=== PATIENT | male | born 1950 | race Caucasian/White ===

== ENCOUNTER 2018-11-18 12:45 | Emergency (ER) | payer OTHER, MEDICARE, SELFPAY ==
[2018-11-18] VITALS (25 sets, daily range): BP systolic 105–153; BP diastolic 49–83; PULSE 50–63; RESP 12–22; TEMP 36.9; O2SAT 79–98
--- NOTE | 2018-11-18 13:24 | DI.CT_ITS ---
SYMPTOMS/DIAGNOSIS: ABDOMINAL PAIN, GASTROINTESTINAL BLEEDING CT EXAMINATION OF THE ABDOMEN AND PELVIS: The study was carried out with intravenous administration of 100 cc of Omnipaque 350 and oral ingestion of dilute Omnipaque. Regions of atelectasis are noted in the lung bases. The liver, and gallbladder, and pancreas and spleen are intact. Bilateral renal cysts are demonstrated. The adrenals are normal. There is no evidence of bowel obstruction. There is nothing to suggest an acute appendix. There are scattered sigmoid diverticula and a region of bowel wall thickening and adjacent fat stranding and increased density is noted, the findings consistent with diverticulitis. There is no evidence of perforation or an abscess formation. The bladder is intact. The reproductive organs as visualized appear intact. Small bilateral fat-containing inguinal hernias are demonstrated. There are atherosclerotic changes involving the aorta without evidence of an aneurysm. Mild DJD involving the lower dorsal and lumbar spine is noted. SUMMARY: Findings consistent with diverticulitis. There is no evidence of an abscess or perforation.
[2018-11-18] MEDS: Normal Saline 500 ML IV ×2 (13:31→16:08)
[2018-11-18 13:40] LABS: Abs Immature Grans 0.01 k/cumm (0.0-0.09); Absolute Basophil Count 0.01 k/cumm (0.0-0.2); Absolute Eosinophil Count 0.11 k/cumm (0.0-0.7); Absolute Lymphocyte Count 1.87 k/cumm (1.2-3.4); Absolute Monocyte Count 1.04 k/cumm (0.11-0.7); Absolute Neutrophil Count 5.98 k/cumm (1.2-6.7); Basophils % 0.1; Eosinophils % 1.2; HCT 45.6 % (40.0-50.0); HGB 15.4 g/dL (13.5-17.5); Immature Grans % 0.1; Lymphocytes % 20.7; Mean Corp. HGB Concentration 33.8 g/dL (32.0-36.0); Mean Corpuscular Hemoglobin 32.8 pg (27.0-33.0); Mean Corpuscular Volume 97.2 fL (80-95); Mean Platelet Volume 10.9 fL (8.0-11.0); Monocytes % 11.5; Neutrophils % 66.4; Platelet Count 176 x1000/uL (130-400); RBC 4.69 m/cumm (4.50-6.00); RBC Distribution Width 13.8 % (11.8-14.1); White Blood Cell Count 9.02 k/cumm (4.4-10.8)
[2018-11-18 13:46] LABS: ALT 29 U/L (12-78); AST 26 U/L (15-37); Albumin 3.8 g/dL (3.4-5.0); Alkaline Phosphatase 79 U/L (46-116); Anion Gap 8.9 mmol/L (3-11); BUN 14 mg/dL (7-18); Bilirubin, Total 0.6 mg/dL (0.2-1.0); CO2 26.1 mmol/L (21.0-32.0); CREATININE 1.13 mg/dL (0.70-1.30); Chloride 102 mmol/L (98-107); Glucose 116 mg/dL (70-100); Potassium 4.2 mmol/L (3.5-5.1); Sodium 137 mmol/L (136-145); Total Protein 7.8 g/dL (6.4-8.2)
[2018-11-18] MEDS: Omnipaque 350 MG/ML 100 ML BTL IJ (14:51)
--- NOTE | 2018-11-18 14:57 | W.ED.GENAD ---
Discharge Plan Disposition Patient Disposition: HOME Condition: Stable Discharge Details Chief Complaint: GI Bleed Clinical Impression: Diverticulitis of sigmoid colon Primary Care Provider: Jen Yepez ED Provider: Denny Landon Home Meds and New Rx's Prescriptions: New ciprofloxacin HCl 500 mg tablet 500 mg PO BID Qty: 14 RF: 0 metronidazole 500 mg tablet 500 mg PO TID 7 Days Qty: 21 RF: 0 Continued aspirin [Aspir-Low] 81 mg Tablet,Delayed Release (Dr/Ec) 81 mg PO DAILY RF: 0 Discharge Instructions Instructions: Diverticulitis (ED), Diverticulitis Diet (ED) Additional Instructions: Return to the emergency department if you develop any fever chills, have worsening of symptoms, or not having improvement of your symptoms after 48 hours on antibiotics. Otherwise follow-up with your primary care provider for reassessment Referrals: Jen Yepez [Primary Care Provider] - 1 week Discharge Data Discharge Date/Time-TO BE ENTERED AT DEPARTURE: 11/18/18 16:10 Medical Decision Making Patient presents the emergency department for chief complaint of rectal bleeding. Patient states he has noted small amounts of bright red blood per rectum for the past 2 days days left sided abdominal pain. Physical exam shows left lower quadrant tenderness, normal active bowel sounds, otherwise unremarkable exam. Plan to do labs and CT imaging given patient has abdominal pain. Patient did refuse rectal exam at this time. Pending results patient given fluids and morphine. Reviewed and show no significant anemia, no leukocytosis, nondiagnostic CMP with only elevated finding of glucose elevation slightly. Review of CT imaging shows sigmoid diverticulitis without signs of abscess or perforation. Patient reassessed and shows no new or worsening symptoms. Patient placed up on Cipro Flagyl and otherwise given reassuring labs and vital signs I feel patient is appropriate for outpatient therapy. Return for cost. After discussion of diagnosis and plan of care patient has no further needs, questions, or concerns and states clear understanding to return to the emergency department for any worsening symptoms. Lab Data Lab results reviewed: Yes I reviewed the patient's lab results. HPI General Mode of arrival: ambulatory. Date/Time Provider Initiated Documentation: 11/18/18 12:53. Limitations to Documentation: no limitations. Information obtained by: patient and RN notes reviewed. History of Present Illness 67 year old M presents to the emergency department with the chief complaint of GI bleeding, abd pain, described as moderate, with intensity rated at 8. Quality is described as aching and dull, and is localized to the abdomen. Patient started experiencing this day(s) (3) and it has been constant. No relieving factors improve symptom(s), No exacerbating factors reported . Patient notes no other symptoms.. Patient did receive the following treatments prior to arrival, none Related Data Home Medications Medication Instructions Recorded Confirmed aspirin [Aspir-Low] 81 mg PO DAILY 11/18/18 11/18/18 ciprofloxacin HCl 500 mg PO BID #14 tab 11/18/18 metronidazole 500 mg PO TID 7 Days #21 tab 11/18/18 Previous Rx's Medication Instructions Recorded ciprofloxacin HCl 500 mg PO BID #14 tab 11/18/18 metronidazole 500 mg PO TID 7 Days #21 tab 11/18/18 Allergies Allergy/AdvReac Type Severity Reaction Status Date / Time lidocaine Allergy Severe Unverified 08/18/17 01:18 latex Allergy Mild Skin Rash Unverified 08/18/17 01:18 General Stated Complaint: GI Bleed ISACC: 3 Review of Systems Constitutional Reports chills, Denies fever(s) and Reports poor appetite Cardiovascular Denies chest pain and Denies dyspnea Respiratory Denies cough and Denies dyspnea Gastrointestinal Reports as per HPI, Reports abdominal pain, Denies melena, Reports hematochezia, Denies change in bowel habits, Denies constipation, Denies loose stools, Denies nausea and Denies vomiting Genitourinary Denies hematuria, Denies difficulty urinating, Denies urinary hesitancy, Denies urinary incontinence and Denies urinary urgency Integumentary/Breasts Denies rash [facility] Medical History Kidney stone on left side (Acute) Myocardial infarction (Chronic) Surgical History History of back surgery (Acute) Social History Smoking/Tobacco Use Status: Current every day Alcohol Intake: current Alcohol Intake frequency: a few times a month Alcohol type: hard liquor Drug use: Never Substance use type: does not use Do you feel safe at home: Yes Do you feel safe in your relationship?: Yes Exam Const General: cooperative Orientation: alert, awake and oriented x3 Resp Effort & Inspection: normal respiratory effort and able to speak in complete sentences Auscultation: clear to auscultation bilaterally Cardio Rate: regular rate Rhythm: regular rhythm Heart Sounds: S1 normal and S2 normal GI Palpation: soft, no hepatosplenomegaly, not firm, no guarding, no masses, no pulsatile masses, not rigid, no splenomegaly and tender Auscultation: normal bowel sounds Rectal Exam: deferred and other (pt refused rectal exam) Back/Spine/Pelvis Back: no CVA tenderness Neuro General: alert, awake, oriented x3, gait normal and moves all extremities Course Vital Signs Temperature 36.9 C 11/18/18 12:47 Pulse 63 11/18/18 12:47 Respiratory Rate 18 11/18/18 12:47 Blood Pressure 153/83 H 11/18/18 12:47 Pulse Oximetry 96 11/18/18 12:47 Temperature 36.9 C 11/18/18 12:47 Temperature Source Skin 11/18/18 12:47 Pulse 63 11/18/18 12:47 Respiratory Rate 18 11/18/18 12:47 Respiratory Effort Non-Labored 11/18/18 13:03 Blood Pressure 153/83 H 11/18/18 12:47 Blood Pressure Position Sitting 11/18/18 12:47 Pulse Oximetry 96 11/18/18 12:47 Pain Level 9 11/18/18 12:47 Lab/Test Results Lab/Test Results: Laboratory Tests Range/Units 11/18/18 11/18/18 13:10 13:10 WBC (4.4-10.8) k/cumm 9.02 RBC (4.50-6.00) m/cumm 4.69 Hgb (13.5-17.5) g/dL 15.4 Hct (40.0-50.0) % 45.6 MCV (80-95) fL 97.2 H MCH (27.0-33.0) pg 32.8 MCHC (32.0-36.0) g/dL 33.8 RDW (11.8-14.1) % 13.8 Plt Count (130-400) x1000/uL 176 MPV (8.0-11.0) fL 10.9 Immature Gran % 0.1 Neutrophils % 66.4 Lymphocytes % 20.7 Monocytes % 11.5 Eosinophils % 1.2 Basophils % 0.1 Absolute Neutrophils (1.2-6.7) k/cumm 5.98 Absolute Lymphocytes (1.2-3.4) k/cumm 1.87 Absolute Monocytes (0.11-0.7) k/cumm 1.04 H Absolute Eosinophils (0.0-0.7) k/cumm 0.11 Absolute Basophils (0.0-0.2) k/cumm 0.01 Sodium (136-145) mmol/L 137 Potassium (3.5-5.1) mmol/L 4.2 Chloride (98-107) mmol/L 102 Carbon Dioxide (21.0-32.0) mmol/L 26.1 Anion Gap (3-11) mmol/L 8.9 BUN (7-18) mg/dL 14 Creatinine (0.70-1.30) mg/dL 1.13 Estimated GFR/1.73 m2 (mL/min/1.73m2) >= 60.00 Glucose (70-100) mg/dL 116 H Calcium (8.5-10.1) mg/dL 9.0 Total Bilirubin (0.2-1.0) mg/dL 0.6 AST (15-37) U/L 26 ALT (12-78) U/L 29 Alkaline Phosphatase (46-116) U/L 79 Total Protein (6.4-8.2) g/dL 7.8 Albumin (3.4-5.0) g/dL 3.8
--- NOTE | 2018-11-18 15:00 | ED.GENADUL_ITS ---
Discharge Plan Disposition Patient Disposition: HOME Condition: Stable Discharge Details Chief Complaint: GI Bleed Clinical Impression: Diverticulitis of sigmoid colon Primary Care Provider: Jen Yepez ED Provider: Denny Landon Home Meds and New Rx's Prescriptions: New ciprofloxacin HCl 500 mg tablet 500 mg PO BID Qty: 14 RF: 0 metronidazole 500 mg tablet 500 mg PO TID 7 Days Qty: 21 RF: 0 Continued aspirin [Aspir-Low] 81 mg Tablet,Delayed Release (Dr/Ec) 81 mg PO DAILY RF: 0 Discharge Instructions Instructions: Diverticulitis (ED), Diverticulitis Diet (ED) Additional Instructions: Return to the emergency department if you develop any fever chills, have worsening of symptoms, or not having improvement of your symptoms after 48 hours on antibiotics. Otherwise follow-up with your primary care provider for reassessment Referrals: Jen Yepez [Primary Care Provider] - 1 week Discharge Data Discharge Date/Time-TO BE ENTERED AT DEPARTURE: 11/18/18 16:10 Medical Decision Making Patient presents the emergency department for chief complaint of rectal bleeding. Patient states he has noted small amounts of bright red blood per rectum for the past 2 days days left sided abdominal pain. Physical exam shows left lower quadrant tenderness, normal active bowel sounds, otherwise unremarkable exam. Plan to do labs and CT imaging given patient has abdominal pain. Patient did refuse rectal exam at this time. Pending results patient given fluids and morphine. Reviewed and show no significant anemia, no leukocytosis, nondiagnostic CMP with only elevated finding of glucose elevation slightly. Review of CT imaging shows sigmoid diverticulitis without signs of abscess or perforation. Patient reassessed and shows no new or worsening symptoms. Patient placed up on Cipro Flagyl and otherwise given reassuring labs and vital signs I feel patient is appropriate for outpatient therapy. Return for cost. After discussion of diagnosis and plan of care patient has no further needs, questions, or concerns and states clear understanding to return to the emergency department for any worsening symptoms. Lab Data Lab results reviewed: Yes I reviewed the patient's lab results. HPI General Mode of arrival: ambulatory . Date/Time Provider Initiated Documentation: 11/18/18 12:53 . Limitations to Documentation: no limitations . Information obtained by: patient and RN notes reviewed . History of Present Illness 67 year old M presents to the emergency department with the chief complaint of GI bleeding, abd pain, described as moderate, with intensity rated at 8. Quality is described as aching and dull, and is localized to the abdomen. Patient started experiencing this day(s) (3) and it has been constant. No relieving factors improve symptom(s), No exacerbating factors reported . Patient notes no other symptoms.. Patient did receive the following treatments prior to arrival, none Related Data Home Medications Medication Instructions Recorded Confirmed aspirin [Aspir-Low] 81 mg PO DAILY 11/18/18 11/18/18 ciprofloxacin HCl 500 mg PO BID #14 tab 11/18/18 metronidazole 500 mg PO TID 7 Days #21 tab 11/18/18 Previous Rx's Medication Instructions Recorded ciprofloxacin HCl 500 mg PO BID #14 tab 11/18/18 metronidazole 500 mg PO TID 7 Days #21 tab 11/18/18 Allergies Allergy/AdvReac Type Severity Reaction Status Date / Time lidocaine Allergy Severe Unverified 08/18/17 01:18 latex Allergy Mild Skin Rash Unverified 08/18/17 01:18 General Stated Complaint: GI Bleed ISACC: 3 Review of Systems Constitutional Reports chills, Denies fever(s) and Reports poor appetite Cardiovascular Denies chest pain and Denies dyspnea Respiratory Denies cough and Denies dyspnea Gastrointestinal Reports as per HPI, Reports abdominal pain, Denies melena, Reports hematochezia, Denies change in bowel habits, Denies constipation, Denies loose stools, Denies nausea and Denies vomiting Genitourinary Denies hematuria, Denies difficulty urinating, Denies urinary hesitancy, Denies urinary incontinence and Denies urinary urgency Integumentary/Breasts Denies rash [facility] Medical History Kidney stone on left side (Acute) Myocardial infarction (Chronic) Surgical History History of back surgery (Acute) Social History Smoking/Tobacco Use Status: Current every day Alcohol Intake: current Alcohol Intake frequency: a few times a month Alcohol type: hard liquor Drug use: Never Substance use type: does not use Do you feel safe at home: Yes Do you feel safe in your relationship?: Yes Exam Const General: cooperative Orientation: alert, awake and oriented x3 Resp Effort & Inspection: normal respiratory effort and able to speak in complete se ntences Auscultation: clear to auscultation bilaterally Cardio Rate: regular rate Rhythm: regular rhythm Heart Sounds: S1 normal and S2 normal GI Palpation: soft, no hepatosplenomegaly, not firm, no guarding, no masses, no pulsatile masses, not rigid, no splenomegaly and tender Auscultation: normal bowel sounds Rectal Exam: deferred and other (pt refused rectal exam) Back/Spine/Pelvis Back: no CVA tenderness Neuro General: alert, awake, oriented x3, gait normal and moves all extremities Course Vital Signs Temperature 36.9 C 11/18/18 12:47 Pulse 63 11/18/18 12:47 Respiratory Rate 18 11/18/18 12:47 Blood Pressure 153/83 H 11/18/18 12:47 Pulse Oximetry 96 11/18/18 12:47 Temperature 36.9 C 11/18/18 12:47 Temperature Source Skin 11/18/18 12:47 Pulse 63 11/18/18 12:47 Respiratory Rate 18 11/18/18 12:47 Respiratory Effort Non-Labored 11/18/18 13:03 Blood Pressure 153/83 H 11/18/18 12:47 Blood Pressure Position Sitting 11/18/18 12:47 Pulse Oximetry 96 11/18/18 12:47 Pain Level 9 11/18/18 12:47 Lab/Test Results Lab/Test Results: Laboratory Tests Range/Units 11/18/18 11/18/18 13:10 13:10 WBC (4.4-10.8) k/cumm 9.02 RBC (4.50-6.00) m/cumm 4.69 Hgb (13.5-17.5) g/dL 15.4 Hct (40.0-50.0) % 45.6 MCV (80-95) fL 97.2 H MCH (27.0-33.0) pg 32.8 MCHC (32.0-36.0) g/dL 33.8 RDW (11.8-14.1) % 13.8 Plt Count (130-400) x1000/uL 176 MPV (8.0-11.0) fL 10.9 Immature Gran % 0.1 Neutrophils % 66.4 Lymphocytes % 20.7 Monocytes % 11.5 Eosinophils % 1.2 Basophils % 0.1 Absolute Neutrophils (1.2-6.7) k/cumm 5.98 Absolute Lymphocytes (1.2-3.4) k/cumm 1.87 Absolute Monocytes (0.11-0.7) k/cumm 1.04 H Absolute Eosinophils (0.0-0.7) k/cumm 0.11 Absolute Basophils (0.0-0.2) k/cumm 0.01 Sodium (136-145) mmol/L 137 Potassium (3.5-5.1) mmol/L 4.2 Chloride (98-107) mmol/L 102 Carbon Dioxide (21.0-32.0) mmol/L 26.1 Anion Gap (3-11) mmol/L 8.9 BUN (7-18) mg/dL 14 Creatinine (0.70-1.30) mg/dL 1.13 Estimated GFR/1.73 m2 (mL/min/1.73m2) >= 60.00 Glucose (70-100) mg/dL 116 H Calcium (8.5-10.1) mg/dL 9.0 Total Bilirubin (0.2-1.0) mg/dL 0.6 AST (15-37) U/L 26 ALT (12-78) U/L 29 Alkaline Phosphatase (46-116) U/L 79 Total Protein (6.4-8.2) g/dL 7.8 Albumin (3.4-5.0) g/dL 3.8
[2018-11-18] MEDS: MORPHine 10 MG/ML VIAL 4 MG IVP (15:47)
[2018-11-18] MEDS: Ciprofloxacin 500 MG TAB PO (15:57)
[2018-11-18] MEDS: metroNIDAZOLE 500 MG TAB PO (15:57)
--- NOTE | 2018-11-19 11:51 | NUR.NOTE ---
Nursing Note: Referral faxed to PCP for follow up. Patricia Galeano.
== END 2018-11-18 16:10 | disposition home or self-care (01) ==
PROVIDERS: Emergency Provider Nurse Practitioner Family; PCP Nurse Practitioner Family
DX: K57.32 Diverticulitis of large intestine without perforation or abscess without bleeding (principal)
CPT/HCPCS: 36415; 80053; 86850; 86900; 86901; 96361; 96374; 96376; 99285; 74177; 85025; 99284; J2270; J3490

== ENCOUNTER 2022-11-08 15:59 | Emergency (ER) | payer OTHER, SELFPAY ==
[2022-11-08] VITALS (26 sets, daily range): BP systolic 123–169; BP diastolic 52–93; PULSE 53–64; RESP 15–34; TEMP 36.7–36.8; O2SAT 95–98
--- NOTE | 2022-11-08 16:00 | RT.EKG_ITS ---
APPROVED REPORT Exam: Resting ECG Reason for Exam: chest pain Patient Location: E HR:62 bpm ECG Measurements Heart Rate 62 AXIS TX 231 P -58 QRSd 155 QRS -33 QT 448 T 131 QTc 455 Conclusion Sinus or ectopic atrial rhythm...P axis (-45,135) Prolonged TX interval...TX >220, V-rate 50- 90 Left bundle branch block...QRSd>120, broad/notched R I have reviewed and interpreted ECG and agree with software generated interpretation.
--- NOTE | 2022-11-08 16:20 | ED.GENADUL_ITS ---
Discharge Plan Disposition Patient Disposition: Home Discharge Details Clinical Impression: Asthmatic bronchitis, Chest pain due to GERD Primary Care Provider: Jen Yepez ED Provider: Maya Wren Home Meds and New Rx's Prescriptions: New prednisone 20 mg tablet 60 mg PO DAILY 5 Days Qty: 15 0RF albuterol sulfate 90 mcg/actuation HFA aerosol inhaler 2 puff inhalation Q4H PRN (Reason: shortness of breath or wheezing) Qty: 6.7 0RF No Action aspirin [Aspir-Low] 81 mg Tablet,Delayed Release (Dr/Ec) 81 mg PO DAILY ciprofloxacin HCl 500 mg tablet 500 mg PO BID Qty: 14 0RF Discharge Instructions Instructions: Acute Bronchitis (ED), GERD (Gastroesophageal Reflux Disease) (ED) Additional Instructions: Use your albuterol inhaler 2 puffs every 4 hours as needed for wheezing or cough. Take the prednisone as prescribed. Double your acid blocking medicine. Call your primary care doctor on Friday for a follow-up appointment. Has some whether they think you should be continuing your acid blocking medicine at the increased dose. Return to ED for fever 100.4 or above, crushing chest pain, severe difficulty breathing, any other concerns. Discharge Data Discharge Date/Time-TO BE ENTERED AT DEPARTURE: 11/08/22 19:44 Medical Decision Making Patient was updated on his test results. I suspect he has an asthmatic bronchitis as there is no evidence of COPD on his chest x-ray or in his history. He is a smoker. He feels much better after his DuoNeb and I will give him a prescription for albuterol and prednisone to go home with. I think this will settle down his cough and his breathing. In terms of the off-and-on burning chest pain that he has on the left-hand side, he is on anticoagulant medication which I suspect may be worsening some gastritis or esophagitis. His EKG and troponin show no evidence of ACS. He unfortunately does not know how much and what the name of his acid blocking medication is. I have asked him to double his medication eg go to 40mg from 20 mg or if 40 go to 80. I told him to call his primary care doctor on Friday for a follow-up appointment for next week. They can discuss whether he needs to take an increased amount of the acid reed for a longer period of time. I will also give him Carafate. He does know to return to the emergency department for change in chest pain, severe difficulty breathing, fever of 100.4 or above, or any other concerns. Medical Records Medical records reviewed: Yes I reviewed the patient's medical records. Imaging Data Radiologic Study: Attestation: I personally reviewed and interpreted this imaging study as follows: Radiologist's impression: XR CHEST 2V PA LATERAL EXAM: XR CHEST 2V PA LATERAL CLINICAL HISTORY: L sided CP TECHNIQUE: 2D digital imaging was performed. COMPARISON: No exams were available for comparison FINDINGS: HEART: Normal size. Aorta: Not dilated. PULMONARY VASCULATURE: Normal. LUNGS: Clear. PLEURAL SPACE: No pleural effusion or pneumothorax. BONE:Unremarkable for age. IMPRESSION: No acute abnormality. Lab Data Lab results reviewed: Yes I reviewed the patient's lab results. ECG Data Attestation: I personally reviewed and interpreted this ECG (s) as follows: (see below) Interpretation: EKG: Normal sinus rhythm at 60, first-degree AV block, left bundle branch block that is unchanged from 06/09, no ST-T changes HPI General Date/Time Provider Initiated Documentation: 11/08/22 16:20 . HPI Narrative: This 71-year-old male patient presents with a multitude of complaints that began 2 weeks ago. Patient states he began having burning chest pain on the left-hand side. Only thing that seems to make this worse is when he eats or drinks anything. He reports that exertion or inspiration do not bring this on and it can start anytime regardless of whether he is eating or drinking. He states that it lasts for 15 to 20 minutes at a time and nothing makes it better or wo rse. It is moderate in nature. At the same time the patient began having a cough, runny nose, and congestion. He reports a tactile fever and says he knows that he has a fever because he was having sweats. He denies rigors. He does have a mild sore throat. He states that he is having some wheezing in addition of the cough. He is a 1/2 pack/day smoker and drinks 2 beers or twisted teas per day. 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 He does think that he is on an acid blocking medicine although he cannot tell me anything more specific including the dose. Chest discomfort does not radiate into his back, arm, or jaw. He denies abdominal pain, nausea, vomiting, or diarrhea. There is no pedal edema or calf pain. Related Data Home Medications Medication Instructions Recorded Confirmed aspirin 81 mg tablet,delayed 81 mg PO DAILY 11/18/18 11/18/18 release (Aspir-Low) ciprofloxacin HCl 500 mg tablet 500 mg PO BID #14 tabs 11/18/18 albuterol sulfate 90 mcg/actuation 2 puff inhalation Q4H PRN 11/08/22 aerosol inhaler shortness of breath or wheezing #6.7 grams prednisone 20 mg tablet 60 mg PO DAILY 5 days #15 tabs 11/08/22 Previous Rx's Medication Instructions Recorded ciprofloxacin HCl 500 mg tablet 500 mg PO BID #14 tabs 11/18/18 albuterol sulfate 90 mcg/actuation 2 puff inhalation Q4H PRN 11/08/22 aerosol inhaler shortness of breath or wheezing #6.7 grams prednisone 20 mg tablet 60 mg PO DAILY 5 days #15 tabs 11/08/22 Allergies Allergy/AdvReac Type Severity Reaction Status Date / Time lidocaine Allergy Severe Unverified 08/18/17 01:18 latex Allergy Mild Skin Rash Unverified 08/18/17 01:18 General Stated Complaint: RespSymp ISACC: 3 Review of Systems Constitutional Constitutional: Denies chills, Denies fever(s), Denies headache(s) and Denies weakness Eyes Eyes: Denies diplopia and Reports other (no redness) ENT Ears, Nose, Mouth, and Throat: Denies otalgia, Denies headache(s), Reports nasal congestion, Reports nasal discharge, Denies neck pain and Reports sore throat Cardiovascular Cardiovascular: Reports chest pain, Denies palpitations and Reports dyspnea Respiratory Respiratory: Reports cough, Reports dyspnea and Reports wheezing Gastrointestinal Gastrointestinal: Denies abdominal pain, Denies diarrhea, Denies nausea and Denies vomiting Genitourinary Genitourinary: Denies difficulty urinating and Denies dysuria Musculoskeletal Musculoskeletal: Denies myalgias, Denies muscle weakness, Denies neck pain, Denies numbness and Reports other (edema) Integumentary/Breasts Skin/Breast: Denies change in pigmentation and Denies rash Neurologic Neurologic: Denies headache(s), Denies numbness and Denies weakness Endocrine Endocrine: Denies palpitations Allergic/Immunologic Allergic/Immunologic: Reports wheezing PFSH All Active Problems (Updated 11/08/22 @ 19:25 by Maya Wren MD) Asthmatic bronchitis (Acute) Chest pain due to GERD (Acute) Medical History (Updated 11/08/22 @ 19:25 by Maya Wren MD) Kidney stone on left side Myocardial infarction Surgical History History of back surgery Social History Smoking/Tobacco Use Status: Current every day Smoking risk assessment performed?: Yes Alcohol Intake: current Alcohol Intake frequency: a few times a month Alcohol type: hard liquor Drug use: Never Substance use type: does not use Do you feel safe at home: Yes Do you feel safe in your relationship?: Yes Exam Const General: no acute distress, well developed, well groomed and not in acute distress Nutritional Appearance: well nourished Orientation: alert and oriented x3 HENMT Head: normocephalic and atraumatic Ears: external ears normal Mouth: oropharynx normal and moist mucous membranes Throat: posterior oropharynx normal Eyes Conjunctivae: conjunctivae normal Neck Neck: full ROM and supple Chest Chest: normal inspection of the chest Resp Effort & Inspection: normal respiratory effort ( Scattered wheezing especially with cough) Auscultation: other (No rales evident) Cardio Rate: regular rate Rhythm: regular rhythm Heart Sounds: no murmurs and no rubs GI Inspection: normal to inspection Palpation: soft, nontender and other (non distended) Auscultation: normal bowel sounds Skin General skin exam: no rashes or lesions noted and other (pink, warm, dry) Neuro General: patient alert, patient awake and patient oriented x3 Speech: speech normal Motor: other (MEDRANO) Sensory Exam: no sensory deficits noted Extrem General: normal to inspection, full ROM and pedal edema present Psych Mental Status: mental status grossly normal Speech and Movement: speech and movement normal Affect: normal affect Course Vital Signs Vital signs: Vital Signs Temperature 36.8 C 11/08/22 16:04 Pulse 62 11/08/22 16:04 Respiratory Rate 22 11/08/22 16:04 Blood Pressure 169/79 H 11/08/22 16:04 Pulse Oximetry 95 11/08/22 16:04 Temperature 36.8 C 11/08/22 16:04 Pulse 62 11/08/22 16:04 Respiratory Rate 22 11/08/22 16:04 Blood Pressure 169/79 H 11/08/22 16:04 Blood Pressure Position Sitting 11/08/22 16:04 Pulse Oximetry 95 11/08/22 16:04 Oxygen Delivery Method Room Air 11/08/22 16:04 Oxygen Flow Rate 0 11/08/22 16:04
--- NOTE | 2022-11-08 16:30 | DI.RAD_ITS ---
Exam(s) XR CHEST 2V PA LATERAL EXAM: XR CHEST 2V PA LATERAL CLINICAL HISTORY: L sided CP TECHNIQUE: 2D digital imaging was performed. COMPARISON: No exams were available for comparison FINDINGS: HEART: Normal size. Aorta: Not dilated. PULMONARY VASCULATURE: Normal. LUNGS: Clear. PLEURAL SPACE: No pleural effusion or pneumothorax. BONE:Unremarkable for age. IMPRESSION: No acute abnormality. DATA REPOSITORY: RADIATION DOSE DELIVERED:
[2022-11-08] MEDS: predniSONE 20 MG TAB 60 MG PO (16:51)
[2022-11-08 16:53] LABS: Lactate 1.3 mmol/L (0.6-1.4)
[2022-11-08 16:54] LABS: Abs Immature Grans 0.01 10^3/uL (0.0-0.06); Absolute Basophil Count 0.02 10^3/uL (0.0-0.2); Absolute Eosinophil Count 0.14 10^3/uL (0.0-0.7); Absolute Lymphocyte Count 1.43 10^3/uL (1.2-3.4); Absolute Monocyte Count 0.93 10^3/uL (0.1-0.8); Absolute Neutrophil Count 2.36 10^3/uL (1.2-6.7); Basophils % 0.4; Eosinophils % 2.9; HCT 41.3 % (40.0-50.0); HGB 13.8 g/dL (13.5-17.5); Immature Grans % 0.2; Lymphocytes % 29.2; MCH 32.4 pg (27.0-33.0); MCHC 33.4 % (32.0-36.0); MCV 97 fL (80-95); MPV 10.1 fL (8.0-11.0); Neutrophils % 48.3; Platelet Count 212 10^3/uL (130-400); RBC 4.26 10^6/uL (4.36-5.78); RDW 12.9 % (11.8-14.1); RDW-SD 46.2 fL; WBC 4.89 10^3/uL (4.4-10.8)
[2022-11-08 17:05] LABS: Prothrombin Time 9.8 sec (9.3-11.0)
[2022-11-08 17:11] LABS: ALT 34 U/L (16-63); AST 22 U/L (15-37); Albumin 3.9 g/dL (3.4-5.0); Alkaline Phosphatase 83 U/L (46-116); Anion Gap 7.2 mmol/L (3-11); BUN 14 mg/dL (7-18); Bilirubin, Total 0.2 mg/dL (0.2-1.0); CO2 28.8 mmol/L (21.0-32.0); CREATININE 1.2 mg/dL (0.70-1.30); Calcium 9.9 mg/dL (8.5-10.1); Chloride 103 mmol/L (98-107); Estimated GFR 65.06 (mL/min/1.73m2); Glucose 130 mg/dL (74-106); Potassium 4.5 mmol/L (3.5-5.1); Sodium 139 mmol/L (136-145); Total Protein 8.1 g/dL (6.4-8.2); Troponin I < 50 ng/L (<or=60)
--- NOTE | 2022-11-08 17:13 | DI.VRAD_ITS ---
PROCEDURE INFORMATION: Exam: XR Chest Exam date and time: 11/08/2022 4:57 PM Age: 71 years old Clinical indication: Pain; Left-sided TECHNIQUE: Imaging protocol: Radiologic exam of the chest. Views: 2 views. COMPARISON: CR CHEST 2 VIEWS PA,LAT 07/03/2017 10:50 AM FINDINGS: Lungs: Unremarkable. No consolidation. Pleural spaces: Unremarkable. No pleural effusion. No pneumothorax. Heart/Mediastinum: Unremarkable. No cardiomegaly. Bones/joints: Mild degenerative changes of the osseous structures. IMPRESSION: No acute cardiopulmonary disease. No pneumothorax or definite left rib fracture. Dictated and Authenticated by: Alex Haley MD. Ordering:MARIANO Trejo MD
[2022-11-08] MEDS: Albuterol/Ipratropium 3 ML UPD VIAL UPD (17:20)
[2022-11-08 19:03] LABS: COVID-19 PCR Negative (Negative); Influenza A PCR Negative (Negative); Influenza B PCR Negative (Negative); RSV PCR Negative (Negative)
[2022-11-08 19:05] LABS: Source Nasopharynx
--- NOTE | 2022-11-08 19:11 | NUR.NOTE ---
Nursing Note: Handoff report to Kapil JEFF.
--- NOTE | 2022-11-09 07:18 | NUR.NOTE ---
Nursing Note: Accessed chart to determine orders for EKG and to determine whether or not one needs to be cancelled.
== END 2022-11-08 19:44 | disposition home or self-care (01) ==
PROVIDERS: Emergency Provider Emergency Medicine; PCP Nurse Practitioner Family
DX: J45.909 Unspecified asthma, uncomplicated (principal); K21.9 Gastro-esophageal reflux disease without esophagitis; F17.210 Nicotine dependence, cigarettes, uncomplicated; Z20.822 Contact with and (suspected) exposure to COVID-19
CPT/HCPCS: 36415; 80053; 87637; 93005; 94640; 99283; 71046; 83605; 83735; 84484; 85025; 85610; 93010; 99284; J7512; J7620

== ENCOUNTER 2023-03-18 20:45 | Emergency (ER) | payer OTHER, SELFPAY ==
[2023-03-18 21:02] VITALS: BP 168/52; PULSE 55; RESP 20; TEMP 36.8; O2SAT 99
--- NOTE | 2023-03-18 21:13 | ED.GENADUL_ITS ---
Discharge Plan Disposition Patient Disposition: Home Condition: Good Discharge Details Clinical Impression: Bursitis of right elbow Primary Care Provider: Unknown,Unknown ED Provider: Brandon Callejas Home Meds and New Rx's Prescriptions: No Action albuterol sulfate 90 mcg/actuation HFA aerosol inhaler 2 puff inhalation Q4H PRN (Reason: shortness of breath or wheezing) Qty: 6.7 0RF aspirin [Aspir-Low] 81 mg Tablet,Delayed Release (Dr/Ec) 81 mg PO DAILY ciprofloxacin HCl 500 mg tablet 500 mg PO BID Qty: 14 0RF Discharge Instructions Instructions: Elbow Bursitis (ED) Additional Instructions: At this time you have elbow bursitis, which is an inflammation of the fluid pocket around the elbow. Please ice it throughout the day as often as possible. Avoid direct contact with the ice as this could cause frostbite. Please take Tylenol and Aleve as you have been doing. You can take 1000 mg of Tylenol every 6 hours which is the maximum dose. You can take 220 mg every 12 hours of the Aleve. Please avoid any use of the elbow for the next 5 to 7 days. Avoid any trauma or contusions to this as this will notably worsen the pain and symptoms. You can also take the Voltaren gel which we have given you, please apply the gel every 8 hours to the affected area. If you notice any worsening of your symptoms, or any new symptoms such as vomiting, spreading redness, worsening swelling, diarrhea, fever, chills, shortness of breath, chest pain, numbness, weakness, or fainting , please return immediately to the emergency department for reevaluation. Please follow up with your primary care provider as soon as possible for reassessment and reevaluation. As always, it was a pleasure participating in your medical care today. Discharge Data Discharge Date/Time-TO BE ENTERED AT DEPARTURE: 03/18/23 21:21 Medical Decision Making 72-year-old male with past medical history of reactive airway disease, previous NH, previous kidney stone, presents today for evaluation of right elbow pain. Patient is right-hand dominant. 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 Within the last 12 to 18 hours he developed mild to moderate pain in his elbow, which is made worse with movement, and notably worsened with touching. He did take Aleve and this moderately improved his symptoms. He denies any current fever. He denies any focal trauma that he recalls. He denies any numbness or tingling. No other complaints at this time. No history of gout. Exam demonstrates swelling over the olecranon bursa. No significant redness. Notable tenderness on palpation of the olecranon bursa. No warmth, fever, or tachycardia. Symptoms appear inconsistent clinically with septic bursitis, septic joint, or systemic illness. With no trauma, and no evidence of bony tenderness symptoms appear notably inconsistent with fracture. No indication for imaging. Will recommend NSAIDs at home, ice, Voltaren gel. Discussed red flags for which to return. I have extensively reviewed the treatment plan and discharge instructions with the patient. I have addressed all patient concerns at this time. The patient was made aware of what symptoms to monitor for that would warrant a return to the emergency department. Discussed the plan with the patient, they demonstrate verbal understanding and agreement with our assessment and plan at this time. The documentation in this chart was dictated using [employer] dictation software. Please excuse any dictation errors. HPI General Date/Time Provider Initiated Documentation: 03/18/23 21:12 . HPI Narrative: 72-year-old male with past medical history of reactive airway disease, previous NH, previous kidney stone, presents today for evaluation of right elbow pain. Patient is right-hand dominant. 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 Within the last 12 to 18 hours he developed mild to moderate pain in his elbow, which is made worse with movement, and notably worsened with touching. He did take Aleve and this moderately improved his symptoms. He denies any current fever. He denies any focal trauma that he recalls. He denies any numbness or tingling. No other complaints at this time. No history of gout. Related Data Home Medications Medication Instructions Recorded Confirmed aspirin 81 mg tablet,delayed 81 mg PO DAILY 11/18/18 03/18/23 release (Aspir-Low) ciprofloxacin HCl 500 mg tablet 500 mg PO BID #14 tabs 11/18/18 03/18/23 albuterol sulfate 90 mcg/actuation 2 puff inhalation Q4H PRN 11/08/22 03/18/23 aerosol inhaler shortness of breath or wheezing #6.7 grams Previous Rx's Medication Instructions Recorded ciprofloxacin HCl 500 mg tablet 500 mg PO BID #14 tabs 11/18/18 albuterol sulfate 90 mcg/actuation 2 puff inhalation Q4H PRN 11/08/22 aerosol inhaler shortness of breath or wheezing #6.7 grams Allergies Allergy/AdvReac Type Severity Reaction Status Date / Time lidocaine Allergy Severe Unverified 03/18/23 21:06 latex Allergy Mild Skin Rash Unverified 03/18/23 21:06 General Stated Complaint: Orthopedic ISACC: 4 Review of Systems All systems reviewed & are unremarkable except as noted in HPI and below PFSH All Active Problems Bursitis of right elbow (Acute) Medical History Kidney stone on left side Myocardial infarction Surgical History History of back surgery Social History Smoking/Tobacco Use Status: Current every day Smoking risk assessment performed?: Yes Alcohol Intake: current Alcohol Intake frequency: a few times a month Alcohol type: hard liquor Drug use: Never Substance use type: does not use Do you feel safe at home: Yes Do you feel safe in your relationship?: Yes Exam Narrative Exam Narrative: 1.Const: Well-nourished, Well-developed, appearing stated age 2.Eyes: PERRL, no conjunctival injection, and symmetrical lids. 3.ENT: Atraumatic external nose and ears. Moist MM. Neck: Symmetric, trachea midline, No thyromegaly. 4.CVS: +S1/S2, No murmurs or gallops. Peripheral pulses 2+ and equal in all extremities. Brisk capillary refill in all extremities. 5.RESP: Unlabored respiratory effort. Clear to auscultation bilaterally. No wheezes rales or rhonchi 6.GI: Soft, Nontender/Nondistended, No hepatosplenomegaly. No guarding or rebound. 7.MSK: Right elbow demonstrates mild swelling around the olecranon bursa. No significant edema in the mid elbow joint. No pain significant bony tenderness. 8.Skin: Warm, Dry. No rashes or lesions. No significant redness 9.Neuro: soft shoe dancer II-XII grossly intact. Sensation grossly intact, no focal neurologic deficits. 10.Psych: (AAO) x3. Appropriate mood and affect Course Vital Signs Vital signs: Vital Signs Temperature 36.8 C 03/18/23 21:02 Pulse 55 L 03/18/23 21:02 Respiratory Rate 20 03/18/23 21:02 Blood Pressure 168/52 H 03/18/23 21:02 Pulse Oximetry 99 03/18/23 21:02 Temperature 36.8 C 03/18/23 21:02 Temperature Source Oral 03/18/23 21:02 Pulse 55 L 03/18/23 21:02 Respiratory Rate 20 03/18/23 21:02 Blood Pressure 168/52 H 03/18/23 21:02 Blood Pressure Position Sitting 03/18/23 21:02 Pulse Oximetry 99 03/18/23 21:02 Oxygen Delivery Method Room Air 03/18/23 21:02 Oxygen Flow Rate 0 03/18/23 21:02
[2023-03-18] MEDS: Diclofenac 1% Gel 100 GM TUBE TP (21:18)
== END 2023-03-18 21:21 | disposition home or self-care (01) ==
PROVIDERS: Emergency Provider Student in an Organized Health Care Education/Training Program
DX: M70.31 Other bursitis of elbow, right elbow (principal)
CPT/HCPCS: 99281; 99282

== ENCOUNTER 2024-02-06 12:58 | Emergency (ER) | payer OTHER, SELFPAY ==
[2024-02-06 13:00] VITALS: BP 174/73; PULSE 61; RESP 16; TEMP 36.9; O2SAT 98
[2024-02-06 13:04] VITALS: BP 174/73; PULSE 61; RESP 16; TEMP 36.9; O2SAT 98
--- NOTE | 2024-02-06 14:48 | ED.GENADUL_ITS ---
Discharge Plan Disposition Patient Disposition: Home Condition: Stable Discharge Details Clinical Impression: Paronychia of right middle finger, Cellulitis of right middle finger Primary Care Provider: Unknown,Unknown ED Provider: Alfonso Egan Home Meds and New Rx's Prescriptions: New cephalexin 500 mg tablet 500 mg PO QID Qty: 20 0RF Continued amlodipine 5 mg tablet 5 mg PO DAILY ropinirole 2 mg tablet 2 mg PO DAILY omeprazole 20 mg capsule,delayed release(DR/EC) 20 mg PO DAILY omega 7-qpm-rtz-fish oil [Fish Oil] 1,000 mg (120 mg-180 mg) capsule 1 cap PO DAILY rosuvastatin 40 mg tablet 40 mg PO DAILY albuterol sulfate [Proventil HFA] 90 mcg/actuation HFA aerosol inhaler 2 puff inhalation Q6H PRN (Reason: shortness of breath or wheezing) Qty: 8.5 0RF furosemide 20 mg tablet 20 mg PO DAILY candesartan 16 mg tablet 16 mg PO DAILY cyanocobalamin (vitamin B-12) [Vitamin B-12] 250 mcg tablet 250 mcg PO DAILY aspirin [Aspir-Low] 81 mg Tablet,Delayed Release (Dr/Ec) 81 mg PO DAILY Discharge Instructions Instructions: Cellulitis (Skin Infection), Adult ED, Paronychia ED Additional Instructions: Please take full course of antibiotic as prescribed. Perform warm soaks as discussed twice a day for the next 4 days. Please contact your primary care physician to arrange follow-up. Return to the ER immediately for any worsening or new concerning symptoms. HPI General Mode of arrival: ambulatory . Date/Time Provider Initiated Documentation: 02/06/24 13:09 . Limitations to Documentation: no limitations . Information obtained by: patient . HPI Narrative: 73-year-old male presents with chief complaint of right third digit pain and swelling. Patient notes that 2 weeks ago he had a lesion at the base of the nail on his third digit which fell off and then was draining. Wound stopped draining and he subsequently developed increased swelling and pain over the past few days. Finger is now quite swollen distally. Has no associated fever. Related Data Home Medications ?Medication ?Instructions ?Recorded ?Confirmed aspirin 81 mg tablet,delayed 81 mg PO DAILY 11/18/18 02/06/24 release (Aspir-Low) albuterol sulfate 90 mcg/actuation 2 puff inhalation Q6H PRN 09/08/23 02/06/24 aerosol inhaler (Proventil HFA) shortness of breath or wheezing #8.5 grams amlodipine 5 mg tablet 5 mg PO DAILY 09/08/23 02/06/24 omega 2-jzn-rgl-fish oil 1,000 mg 1 cap PO DAILY 09/08/23 02/06/24 (120 mg-180 mg) capsule (Fish Oil) omeprazole 20 mg capsule,delayed 20 mg PO DAILY 09/08/23 02/06/24 release ropinirole 2 mg tablet 2 mg PO DAILY 09/08/23 02/06/24 rosuvastatin 40 mg tablet 40 mg PO DAILY 09/08/23 02/06/24 candesartan 16 mg tablet 16 mg PO DAILY 02/06/24 02/06/24 cephalexin 500 mg tablet 500 mg PO QID #20 tabs 02/06/24 cyanocobalamin (vitamin B-12) 250 250 mcg PO DAILY 02/06/24 02/06/24 mcg tablet (Vitamin B-12) furosemide 20 mg tablet 20 mg PO DAILY 02/06/24 02/06/24 Previous Rx's ?Medication ?Instructions ?Recorded albuterol sulfate 90 mcg/actuation 2 puff inhalation Q6H PRN 09/08/23 aerosol inhaler (Proventil HFA) shortness of breath or wheezing #8.5 grams cephalexin 500 mg tablet 500 mg PO QID #20 tabs 02/06/24 Allergies Allergy/AdvReac Type Severity Reaction Status Date / Time lidocaine Allergy Severe Other (See Unverified 02/06/24 13:47 Comment) latex Allergy Mild Skin Rash Unverified 02/06/24 13:47 General Stated Complaint: Cellulitis ISACC: 3 Review of Systems Constitutional Constitutional: Denies fever(s) Exam Extrem Right upper extremity: hand Details: tenderness Location: of the 3rd digit Location: at the distal phalanx and swelling Location: of the 3rd digit Location: at the middle phalanx and at the distal phalanx; no crepitus Course Vital Signs Vital signs: Vital Signs Temperature 36.9 C 02/06/24 13:00 Pulse 61 02/06/24 13:00 Respiratory Rate 16 02/06/24 13:00 Blood Pressure 174/73 H 02/06/24 13:00 Pulse Oximetry 98 02/06/24 13:00 Temperature 36.9 C 02/06/24 13:04 Temperature Source Temporal Artery Scan 02/06/24 13:04 Pulse 61 02/06/24 13:04 Respiratory Rate 16 02/06/24 13:04 Respiratory Effort Normal 02/06/24 13:51 Blood Pressure 174/73 H 02/06/24 13:04 Blood Pressure Position Sitting 02/06/24 13:04 Pulse Oximetry 98 02/06/24 13:04 Oxygen Delivery Method Room Air 02/06/24 13:04 Oxygen Flow Rate 0 02/06/24 13:04 Pain Level 10 02/06/24 13:04 Medical Decision Making 73-year-old male here with distal third digit paronychia and cellulitis. Patient has allergy to lidocaine. Attempting to obtain outside hospital records as he had a biopsy and tolerated local anesthetic 2 weeks ago at [facility]. Patient would like to proceed with procedure without local injection and p rovided informed consent to proceed with topical anesthetic. -- Attempted incision and drainage with topical, patient had significant pain and procedure was aborted. Patient agreeable to digital block with chloroprocaine. Finger was prepped with Betadine and draped sterilely. Digital block was performed without complication. Small incision was made with 11 blade to distal finger dorsally into area of healed ulcer. Small amount of purulent discharge was expressed. Sterile dressing applied by nursing. Plan to initiate treatment with Keflex. Initial dose provided here in the emergency department. Patient's last tetanus was in 2013. I will give tetanus vaccination. Usual and customary discharge instructions were reviewed with the patient. Quality:SDOH Health Related Social Needs: No Data to Display PFSH All Active Problems (Updated 02/06/24 @ 14:56 by Alfonso Egan MD) Cellulitis of right middle finger (Acute) Paronychia of right middle finger (Acute) Medical History (Updated 02/06/24 @ 14:56 by Alfonso Egan MD) Kidney stone on left side Myocardial infarction Surgical History History of back surgery Social History Smoking/Tobacco Use Status: Former Tobacco Use Smoking risk assessment performed?: Yes Alcohol Intake: current Alcohol Intake frequency: a few times a month Alcohol type: hard liquor Drug use: Never Substance use type: does not use Do you feel safe at home: Yes Do you feel safe in your relationship?: Yes
[2024-02-06] MEDS: Lidocaine/Epinephri/Tetracaine Topical Gel 3 ML (14:53)
--- NOTE | 2024-02-06 15:43 | W.ED.PROC ---
Date of service: 02/06/24 Time of Service: 15:43 Procedures Abscess I/D Site: Hand Side (if applicable): Right Sedation/analgesia: None Local Anesthetic: Other Anesthetic (chloroprocaine) Amount of anesthesia used (mL): 6 Technique: Incised with #11 Blade Amount of fluid expressed (mL): 2 Irrigation: No Packing used?: None Medical Decision Making Quality:SDOH Health Related Social Needs: No Data to Display
[2024-02-06] MEDS: Cephalexin 500 MG CAP PO (15:47)
[2024-02-06 15:48] VITALS: BP 174/73; PULSE 61; RESP 16; TEMP 36.9; O2SAT 98
== END 2024-02-06 15:50 | disposition home or self-care (01) ==
PROVIDERS: Emergency Provider Student in an Organized Health Care Education/Training Program
DX: L03.011 Cellulitis of right finger (principal); Z23 Encounter for immunization
CPT/HCPCS: 10060; 64450; 90471; 90715; 99284; J2401

== ENCOUNTER 2024-08-18 14:51 | Inpatient (IN) | payer OTHER, SELFPAY ==
[2024-08-18] VITALS (26 sets, daily range): BP systolic 99–168; BP diastolic 45–109; PULSE 60–84; RESP 13–24; TEMP 35.8; O2SAT 91–98; BMI 30.9
[2024-08-18 15:44] LABS: Lactate 3.9 mmol/L (<or=2.0)
--- NOTE | 2024-08-18 15:45 | DI.CT_ITS ---
Exam(s) CT ABDOMEN PELVIS CTA EXAM: CT ABDOMEN PELVIS CTA CLINICAL HISTORY: mid lower abd pain severe, sudden onset. TECHNIQUE: Imaging Protocol: Axial CT angiography was performed with multi-slice acquisition and m ulti-planar and/or 3D reconstructions. CONTRAST MATERIAL: Intravenous: Omnipaque 350 Contrast volume:100 mL Oral: / no COMPARISON: CT CT ABDOMEN PELVIS W from 11/18/2018 FINDINGS: Vascular Structures: Mild atherosclerotic calcifications. Celiac [place]:No evidence of stenosis. SMA: No evidence of stenosis. Renal Arteries: No evidence of stenosis. There is a single renal artery perfusing each kidney. Aorta: No aneurysm. No dissection. No significant stenosis. Iliac Arteries: No evidence of stenosis. Common Femoral Arteries: No evidence of stenosis. Soft Tissues:Bilateral fat containing inguinal hernias. Lung bases:No acute findings. Liver: Normal size. Normal density. No measurable mass. Gallbladder and biliary tract: No evidence of calculi. No gallbladder wall thickening. No biliary di lation. Pancreas: Normal density, no abnormal calcifications or inflammatory process. Spleen: Normal. Kidneys: Normal size, contour and axis. No obstructive uropathy. Simple renal cysts. No suspicious masses seen. No evidence of calculi. Adrenal glands: No masses seen. Bladder: No gross wall thickening. No evidence of calculi. No evidence of mass. Bowel: No obstruction. Diverticulosis of the lower descending and sigmoid colon. Wall thickening an d marked surrounding stranding consistent with diverticulitis. There are multiple bubbles of free a ir in the vicinity as well as in the anterior peritoneum. No evidence of appendicitis. Peritoneal cavity: No ascites. No focal collection. Bones: No acute findings. Lymph nodes: Within normal limits. Reproductive: Unremarkable. IMPRESSION: Perforated sigmoid diverticulitis. No evidence of abscess. Mild atherosclerotic changes. No evidence of aneurysm, dissection or significant stenosis. Findings called to Dr. Egan of the emergency department. RADIATION DOSE DELIVERED: Total DLP DATA REPOSITORY: All CT scans at this facility are submitted to the National Radiology Data Registry (NRDR) Dose Index Registry (DIR) with the [employer] (A[employer]). RADIATION OPTIMIZATION: All CT scans at this facility use at least one of these dose optimization te chniques: automated exposure control; mA and/or kV adjustment per patient size (includes targeted exa ms where dose is matched to clinical indication); or iterative reconstruction.
[2024-08-18] MEDS: Omnipaque 350 MG/ML 100 ML BTL IJ (16:18)
[2024-08-18 16:19] LABS: HCT 40.2 % (40.0-50.0); HGB 13.6 g/dL (13.5-17.5); MCH 32.2 pg (27.0-33.0); MCHC 33.8 % (32.0-36.0); MCV 95 fL (80-95); MPV 10.7 fL (8.0-11.0); Platelet Count 106 10^3/uL (130-400); RBC 4.22 10^6/uL (4.36-5.78); RDW 12.2 % (11.8-14.1); RDW-SD 42.7 fL
[2024-08-18] MEDS: Normal Saline - Diluent 50 ML VIAL IJ (16:26)
--- NOTE | 2024-08-18 16:27 | ED.GENADUL_ITS ---
Discharge Plan Disposition Condition: Serious Discharge Details Chief Complaint: Abd Prob Clinical Impression: Perforation of sigmoid colon due to diverticulitis, Hyperkalemia, KEIKO (acute kidney injury) Primary Care Provider: Unknown,Unknown ED Provider: Alfonso Egan Home Meds and New Rx's Prescriptions: No Action amlodipine 5 mg tablet 5 mg PO DAILY ropinirole 2 mg tablet 2 mg PO DAILY omeprazole 20 mg capsule,delayed release(DR/EC) 20 mg PO DAILY omega 1-omz-txy-fish oil [Fish Oil] 1,000 mg (120 mg-180 mg) capsule 1 cap PO DAILY rosuvastatin 40 mg tablet 40 mg PO DAILY furosemide 20 mg tablet 20 mg PO DAILY cyanocobalamin (vitamin B-12) [Vitamin B-12] 250 mcg tablet 250 mcg PO DAILY ferrous gluconate 324 mg (38 mg iron) tablet 324 mg PO DAILY Patient Comments: M-W-F metformin 500 mg tablet extended release 24 hr 500 mg PO BID naproxen [EC-Naprosyn] 375 mg tablet,delayed release (DR/EC) 375 mg PO BID PRN nicotine (polacrilex) 2 mg gum 2 mg PO Q2H PRN sildenafil 50 mg tablet 50 mg PO ONCE PRN Rx Instructions: administer 30 minutes to 4 hours before activity aspirin [Aspir-Low] 81 mg Tablet,Delayed Release (Dr/Ec) 81 mg PO DAILY HPI General Mode of arrival: EMS . Date/Time Provider Initiated Documentation: 08/18/24 14:51 . Limitations to Documentation: no limitations . Information obtained by: patient . HPI Narrative: 73-year-old male with history of coronary artery disease, recent pacemaker placement about a week ago, here with chief complaint of abdominal pain. Patient notes pain started suddenly this morning around 10 AM and has persisted. Pain is severe. Pain localized to lower mid abdomen. He has no associated rectal bleeding. No fever. He had recent normal bowel movement within the past 24 hours. Related Data Home Medications ?Medication ?Instructions ?Recorded ?Confirmed aspirin 81 mg tablet,delayed 81 mg PO DAILY 11/18/18 08/18/24 release (Aspir-Low) amlodipine 5 mg tablet 5 mg PO DAILY 09/08/23 08/18/24 omega 8-dcv-bbx-fish oil 1,000 mg 1 cap PO DAILY 09/08/23 02/06/24 (120 mg-180 mg) capsule (Fish Oil) omeprazole 20 mg capsule,delayed 20 mg PO DAILY 09/08/23 08/18/24 release ropinirole 2 mg tablet 2 mg PO DAILY 09/08/23 08/18/24 rosuvastatin 40 mg tablet 40 mg PO DAILY 09/08/23 08/18/24 cyanocobalamin (vitamin B-12) 250 250 mcg PO DAILY 02/06/24 08/18/24 mcg tablet (Vitamin B-12) furosemide 20 mg tablet 20 mg PO DAILY 02/06/24 08/18/24 ferrous gluconate 324 mg (38 mg 324 mg PO DAILY 08/18/24 08/18/24 iron) tablet metformin 500 mg tablet,extended 500 mg PO BID 08/18/24 08/18/24 release 24 hr naproxen 375 mg tablet,delayed 375 mg PO BID PRN 08/18/24 08/18/24 release (EC-Naprosyn) nicotine (polacrilex) 2 mg gum 2 mg PO Q2H PRN 08/18/24 08/18/24 sildenafil 50 mg tablet 50 mg PO ONCE PRN 08/18/24 08/18/24 Allergies Allergy/AdvReac Type Severity Reaction Status Date / Time lidocaine Allergy Severe Other (See Unverified 08/18/24 14:55 Comment) latex Allergy Mild Skin Rash Unverified 08/18/24 14:55 General Stated Complaint: Abd Prob ISACC: 3 Review of Systems All systems reviewed & are unremarkable except as noted in HPI and below Constitutional Constitutional: Denies fever(s) Gastrointestinal Gastrointestinal: Reports as per HPI Exam Const General: cooperative and no acute distress [facility] Mouth: moist mucous membranes Eyes Conjunctivae: normal conjunctivae Sclera: normal sclerae Resp Auscultation: clear to auscultation bilaterally, no rales, no rhonchi and no wheezes Cardio Rate: regular rate and not tachycardic Rhythm: regular rhythm GI Palpation: soft, not firm, guarding in the LLQ, no masses, not rigid and tender in the LLQ and with rebound tenderness Skin General skin exam: no rashes or lesions noted Neuro General: patient alert, patient awake and tone normal Extrem General: no edema Psych Appearance: grossly normal Mental Status: mental status grossly normal Course Vital Signs Vital signs: Vital Signs Temperature 35.8 C L 08/18/24 14:48 Pulse 84 08/18/24 14:48 Respiratory Rate 18 08/18/24 14:48 Blood Pressure 126/54 L 08/18/24 14:48 Pulse Oximetry 96 08/18/24 14:48 Temperature 35.8 C L 08/18/24 14:48 Temperature Source Temporal Artery Scan 08/18/24 14:48 Pulse 84 08/18/24 14:48 Respiratory Rate 18 08/18/24 14:48 Blood Pressure 126/54 L 08/18/24 14:48 Pulse Oximetry 96 08/18/24 14:48 Oxygen Delivery Method Room Air 08/18/24 14:48 Oxygen Flow Rate 0 08/18/24 14:48 Pain Level 10 08/18/24 14:48 Lab/Test Results Lab/Test Results: Laboratory Tests Range/Units 08/18/24 15:34 WBC Cancelled RBC Cancelled Hgb Cancelled Hct Cancelled MCV Cancelled MCH Cancelled MCHC Cancelled RDW Cancelled Plt Count Cancelled MPV Cancelled Immature Gran % Cancelled Neutrophils % Cancelled Band Neutrophils % Cancelled Lymphocytes % Cancelled Atypical Lymphs % Cancelled Monocytes % Cancelled Eosinophils % Cancelled Basophils % Cancelled Metamyelocytes % Cancelled Myelocytes % Cancelled Promyelocytes % Cancelled Other Cells % Cancelled Nucleated RBC % Cancelled Absolute Neutrophils Cancelled Absolute Lymphocytes Cancelled Absolute Monocytes Cancelled Absolute Eosinophils Cancelled Absolute Basophils Cancelled RBC Morphology Cancelled Polychromasia Cancelled Hypochromasia Cancelled Poikilocytosis Cancelled Basophilic Stippling Cancelled Anisocytosis Cancelled Microcytosis Cancelled Macrocytosis Cancelled Spherocytes Cancelled Tear Drop Cells Cancelled Ovalocytes Cancelled Stomatocytes Cancelled [place] Bodies Cancelled Yair Cells/Echinocytes Cancelled Acanthocytes (Spur) Cancelled Schistocytes Cancelled VBG Lactate (<or=2.0) mmol/L 3.9 H* Sodium Cancelled Potassium Cancelled Chloride Cancelled Carbon Dioxide Cancelled Anion Gap Cancelled BUN Cancelled Creatinine Cancelled Est GFR (CKD-EPI 2020) Cancelled Glucose Cancelled Calcium Cancelled Magnesium Cancelled Total Bilirubin Cancelled AST Cancelled ALT Cancelled Alkaline Phosphatase Cancelled Total Protein Cancelled Albumin Cancelled Lipase Cancelled ABO/Rh Cancelled Antibody Screen Cancelled Medical Decision Making --73-year-old male with history of recent pacemaker placement about a week ago at [place], here with new onset left lower abdominal pain this morning. Patient is tender in his lower abdomen, worse in the left lower quadrant with rebound tenderness and guarding. Findings concerning for acute peritonitis, consider AAA with rupture versus perforated diverticulitis. Patient hemodynamically stable and afebrile. POCUS limited and unable to visualize aorta. Plan to proceed to CTA. Offered analgesic and patient declined. 1644 -- CT of the abdomen pelvis was interpreted by radiology: Perforated sigmoid diverticulitis. No evidence of abscess. Mild atherosclerotic changes. No evidence of aneurysm, dissection or significant stenosis. Labs reviewed and concerning for leukopenia, elevated lactate. Creatinine mildly elevated 1.5. Potassium elevated at 5.5. I will initiate treatment with Zosyn. I have called the surgeon to discuss case. Hypomagnesemia noted with magnesium 1.3. I will give magnesium 1 g IV. 1656 --I spoke with Dr. Dr. Ryan, discussed ED presentation and course. She will review diagnostics and evaluate the patient. Lab Data Lab results reviewed: Yes I reviewed the patient's lab results. Labs: Laboratory Tests Range/Units 08/18/24 08/18/24 15:34 16:05 WBC Cancelled 1.77 L* RBC Cancelled 4.22 L Hgb Cancelled 13.6 Hct Cancelled 40.2 MCV Cancelled 95 MCH Cancelled 32.2 MCHC Cancelled 33.8 RDW Cancelled 12.2 Plt Count Cancelled 106 L MPV Cancelled 10.7 Immature Gran % Cancelled See Differential Neutrophils % Cancelled 30.0 Band Neutrophils % Cancelled 28 Lymphocytes % Cancelled 28.0 Atypical Lymphs % Cancelled 2 Monocytes % Cancelled 6.0 Eosinophils % Cancelled 4.0 Basophils % Cancelled 0.0 Metamyelocytes % Cancelled 2 Myelocytes % Cancelled Promyelocytes % Cancelled Other Cells % Cancelled Nucleated RBC % Cancelled 0.0 Absolute Neutrophils Cancelled 1.03 L Absolute Lymphocytes Cancelled 0.53 L Absolute Monocytes Cancelled 0.11 Absolute Eosinophils Cancelled 0.07 Absolute Basophils Cancelled 0.00 RBC Morphology Cancelled Normal Polychromasia Cancelled Hypochromasia Cancelled Poikilocytosis Cancelled Basophilic Stippling Cancelled Anisocytosis Cancelled Microcytosis Cancelled Macrocytosis Cancelled Spherocytes Cancelled Tear Drop Cells Cancelled Ovalocytes Cancelled Stomatocytes Cancelled [place] Bodies Cancelled Yair Cells/Echinocytes Cancelled Acanthocytes (Spur) Cancelled Schistocytes Cancelled VBG Lactate (<or=2.0) mmol/L 3.9 H* Sodium Cancelled 139 Potassium Cancelled 5.5 H Chloride Cancelled 104 Carbon Dioxide Cancelled 28.9 Anion Gap Cancelled 6.1 BUN Cancelled 23 H Creatinine Cancelled 1.5 H Est GFR (CKD-EPI 2020) Cancelled 49.16 Glucose Cancelled 136 H Calcium Cancelled 9.8 Magnesium Cancelled 1.3 L Total Bilirubin Cancelled 0.34 AST Cancelled 25 ALT Cancelled 25 Alkaline Phosphatase Cancelled 76 Total Protein Cancelled 7.2 Albumin Cancelled 3.4 Lipase Cancelled 18 ABO/Rh Cancelled Antibody Screen Cancelled Quality:SDOH Health Related Social Needs: No Data to Display Critical Care Time Critical Care Time Critical Care Time: Yes Total Critical Care Time: 40 Attestation: I spent greater than 40 minutes addressing this patient's immediate life threats. Please see MDM section of note. This time was spent engaged in work directly related to the patient's care, exclusive of separate procedures, and failure to initiate these interventions would have likely resulted in clinically significant or life threatening deterioration in the patient's condition. PFSH All Active Problems (Updated 08/18/24 @ 16:51 by Alfonso Egan MD) KEIKO (acute kidney injury) (Acute) Hyperkalemia (Acute) Perforation of sigmoid colon due to diverticulitis (Acute) Medical History (Updated 08/18/24 @ 16:51 by Alfonso Egan MD) Kidney stone on left side Myocardial infarction Surgical History History of back surgery Social History Smoking/Tobacco Use Status: Former Tobacco Use Smoking risk assessment performed?: Yes Alcohol Intake: current Alcohol Intake frequency: a few times a month Alcohol type: hard liquor Drug use: Never Substance use type: does not use Do you feel safe at home: Yes Do you feel safe in your relationship?: Yes
[2024-08-18 16:38] LABS: Absolute Eosinophil Count 0.07 10^3/uL (0.0-0.7); Absolute Lymphocyte Count 0.53 10^3/uL (1.2-3.4); Absolute Monocyte Count 0.11 10^3/uL (0.1-0.8); Atypical Lymphocytes % 2 %; Bands % 28 %; Metamyelocytes % 2; WBC 1.77 10^3/uL (4.4-10.8)
[2024-08-18 16:39] LABS: ALT 25 U/L (16-63); AST 25 U/L (15-37); Absolute Neutrophil Count 1.03 10^3/uL (1.2-6.7); Albumin 3.4 g/dL (3.4-5.0); Alkaline Phosphatase 76 U/L (46-116); Anion Gap 6.1 mmol/L (3-11); BUN 23 mg/dL (7-18); Bilirubin, Total 0.34 mg/dL (0.2-1.0); CO2 28.9 mmol/L (21.0-32.0); CREATININE 1.5 mg/dL (0.70-1.30); Calcium 9.8 mg/dL (8.5-10.1); Chloride 104 mmol/L (98-107); Diff Comment Manual Differential; Estimated GFR 49.16 (mL/min/1.73m2); Glucose 136 mg/dL (74-106); Lipase 18 U/L (<78); Magnesium 1.3 mg/dL (1.8-2.4); Potassium 5.5 mmol/L (3.5-5.1); RBC Morphology Normal; Sodium 139 mmol/L (136-145); Total Protein 7.2 g/dL (6.4-8.2)
--- NOTE | 2024-08-18 16:45 | RT.EKG_ITS ---
APPROVED REPORT Exam: Resting ECG Reason for Exam: preop Patient Location: E HR:73 bpm ECG Measurements Heart Rate 73 AXIS FL 119 P -63 QRSd 146 QRS 258 QT 432 T 60 QTc 478 Conclusion Ventricular-paced rhythm Biventricular paced rhythm...non-simultaneous bi-vent pacing
[2024-08-18] MEDS: Lactated Ringers 1,000 ML 125 ML IV ×2 (16:50→23:05)
[2024-08-18] MEDS: PIPERACILLIN/TAZO 4.5 GM in Normal Saline 100 ML IVPB ×2 (16:50→23:45)
[2024-08-18] MEDS: MAGNESIUM SULFATE 1 GM/100 ML BAG IV_INF (17:30)
[2024-08-18] MEDS: HYDROmorphone 2 MG/ML SYR 1 MG IVP ×2 (17:30→23:31)
--- NOTE | 2024-08-18 18:35 | ANES.PREOP_ITS ---
General Info Date of Service Date Performed: 08/18/24 Height: 6 ft Weight: 103.419 kg Body Mass Index (BMI): 30.9 Meds Allergies and Home Medications Allergies Allergy/AdvReac Type Severity Reaction Status Date / Time lidocaine Allergy Severe Other (See Unverified 08/18/24 14:55 Comment) latex Allergy Mild Skin Rash Unverified 08/18/24 14:55 Home Medication ?Medication ?Instructions ?Recorded aspirin 81 mg tablet,delayed 81 mg PO DAILY 11/18/18 release (Aspir-Low) amlodipine 5 mg tablet 5 mg PO DAILY 09/08/23 omega 3-swn-jsz-fish oil 1,000 mg 1 cap PO DAILY 09/08/23 (120 mg-180 mg) capsule (Fish Oil) omeprazole 20 mg capsule,delayed 20 mg PO DAILY 09/08/23 release ropinirole 2 mg tablet 2 mg PO DAILY 09/08/23 rosuvastatin 40 mg tablet 40 mg PO DAILY 09/08/23 cyanocobalamin (vitamin B-12) 250 250 mcg PO DAILY 02/06/24 mcg tablet (Vitamin B-12) furosemide 20 mg tablet 20 mg PO DAILY 02/06/24 ferrous gluconate 324 mg (38 mg 324 mg PO DAILY 08/18/24 iron) tablet metformin 500 mg tablet,extended 500 mg PO BID 08/18/24 release 24 hr naproxen 375 mg tablet,delayed 375 mg PO BID PRN 08/18/24 release (EC-Naprosyn) nicotine (polacrilex) 2 mg gum 2 mg PO Q2H PRN 08/18/24 sildenafil 50 mg tablet 50 mg PO ONCE PRN 08/18/24 Current Visit Medications: Current Medications Generic Name Dose Route Start Last Admin Trade Name Clintonq PRN Reason Stop Dose Admin Ringer's Solution 1,000 mls @ 125 mls/hr 08/18/24 16:45 08/18/24 16:50 IV 125 mls/hr INFUSION SONIA Administration IV Miscellaneous Supplies 1 each 08/18/24 15:30 Iv Access-Emergency Dept IV DIRECTED SONIA Iohexol 100 ml 08/18/24 16:30 08/18/24 16:18 Omnipaque 350 Mg/Ml 100 Ml Btl IJ 09/17/24 23:59 100 ml DIRECTED SONAI Administration Sodium Chloride 0 ml 08/18/24 15:18 Normal Saline 10 Ml Vial IJ DIRECTED PRN Sodium Chloride 0 ml 08/18/24 15:18 Normal Saline Flush 10 Ml Syr IVP PRN PRN Sodium Chloride 0 ml 08/18/24 20:00 Normal Saline Flush 10 Ml Syr IVP BID SONIA Sodium Chloride 50 ml 08/18/24 16:30 08/18/24 16:26 Normal Saline - Diluent 50 Ml Vial IJ 50 ml .FOR DI USE SONIA Administration PFSH Active Problems Active Problems: Problem Status Onset Code KEIKO (acute kidney injury) Acute N17.9 Hyperkalemia Acute E87.5 Perforation of sigmoid colon due to diverticulitis Acute K57.20 Medical History Medical History (Updated 08/18/24 @ 19:10 by Abigail Ryan MD) History of congestive heart failure Hypercholesteremia Tobacco abuse Diabetes Hypertension Kidney stone on left side Surgical History Surgical History History of back surgery Tobacco Smoking/Tobacco Use Status: Former Tobacco Use Alcohol Alcohol Intake: current Alcohol intake frequency: a few times a month Alcohol type: hard liquor Substance Use Substance use: Never Substance use type: does not use Vital Signs and Lab Results Vital Signs Most Recent Vital Signs in EMR: Most Recent Vital Signs Temp Pulse Resp BP Pulse Ox 35.8 C L 84 18 126/54 L 96 08/18/24 14:48 08/18/24 14:48 08/18/24 14:48 08/18/24 14:48 08/18/24 14:48 Lab Results 08/18/24 16:05 08/18/24 16:05 Blood Type / Crossmatch: 2 Antibody Screen NEGATIVE 08/18/24 Complete Blood Count: 2 White Blood Count 1.77 10^3/uL (4.4-10.8) L* 08/18/24 16:05 Red Blood Count 4.22 10^6/uL (4.36-5.78) L 08/18/24 16:05 Hemoglobin 13.6 g/dL (13.5-17.5) 08/18/24 16:05 Hematocrit 40.2 % (40.0-50.0) 08/18/24 16:05 Platelet Count 106 10^3/uL (130-400) L 08/18/24 16:05 Venous Blood Lactate 3.9 mmol/L (<or=2.0) H* 08/18/24 15:34 Complete Metabolic Panel: 2 Sodium 139 mmol/L (136-145) 08/18/24 16:05 Potassium 4.7 mmol/L (3.5-5.1) 08/18/24 18:45 Chloride 104 mmol/L (98-107) 08/18/24 16:05 Carbon Dioxide 28.9 mmol/L (21.0-32.0) 08/18/24 16:05 BUN 23 mg/dL (7-18) H 08/18/24 16:05 Creatinine 1.5 mg/dL (0.70-1.30) H 08/18/24 16:05 Est GFR (CKD-EPI 2020) 49.16 (mL/min/1.73m2) 08/18/24 16:05 Magnesium 1.3 mg/dL (1.8-2.4) L 08/18/24 16:05 Calcium 9.8 mg/dL (8.5-10.1) 08/18/24 16:05 Albumin 3.4 g/dL (3.4-5.0) 08/18/24 16:05 Glucose 136 mg/dL (74-106) H 08/18/24 16:05 Liver Function Panel: 2 Alanine Aminotransferase (ALT/SGPT) 25 U/L (16-63) 08/18/24 16: 05 Aspartate Amino Transf (AST/SGOT) 25 U/L (15-37) 08/18/24 16:05 Coagulation Panel: 2 No Data to Display Cardiac Panel: 2 No Data to Display Arterial Blood Gas: 2 No Data to Display Venous Blood Gas: 2 No Data to Display Pancreas Panel: 2 Lipase 18 U/L (<78) 08/18/24 16:05 Thyroid Panel: 2 No Data to Display Infectious Disease: 2 No Data to Display Blood Cultures: 2 No Data to Display Toxicology Panel: 2 No Data to Display Anesthesia Assessment and Plan Anesthesia History Personal History: No History of Anesthesia Complications and Pseudocholinesterase Deficiency Family History: No Family History of Anesthesia Complications Exercise Tolerance Exercise Tolerance: Metabolic Equivalents>4 Pertinent Negatives Pertinent Negatives: No Major Pulmonary Symptoms or Complaints and No History of CVA/TIA Cardiac & Pulmonary Exam Cardiac Exam: Normal S1/S2 Heart Sounds Pulmonary Exam: Clear Bilateral Breath Sounds Implantable Cardiac Device Does patient have a Pacemaker or an ICD?: Yes Device Photographic Laboratory Technician:: Unknown Reason for Placement:: Cardiac synchrony Date of Last Device Interrogation:: Placed last week. Airway Exam Known Difficult Airway: No Mallampati Class: 1 Mouth Opening: Normal (> 3cm) Thyromental Distance: Greater than 3 cm Neck Range of Motion: Full ROM Neck Circumference: Normal Teeth Condition: Normal Dentition ASA Classification ASA Score: ASA 3 Emergency Case?: Yes NPO Status NPO Status: NPO Clears >2 hours, Solids >8 hours Anesthesia Plan Resuscitation Status: Full Code Anesthesia Technique: General Anesthesia Airway Planned: Endotracheal Tube Monitors Used: Standard Monitors, Arterial Line, Central Line and SedLine Preoperative Comments:: Acutely ill 73 yo man. 1 week ago had pacemaker placed wiht 3 leads, likely for heart failure. no records available. Denies any heart valve issues. Had cardiac cath through [place] 12/18 reportedly without stent placement. Previous [place] without stent placement. Tonight acute renal failure with hyperkalemia, low white count. Hemodynamically stable in ED with only complaint of pain. Discussed high risk surgery with pt. and family and all questions answered. Discussed unknown heart history and implications for this surgery as well. Pt. states Viagra for ED, not pHTN.
--- NOTE | 2024-08-18 18:47 | W.PM.HP.N ---
Date of service: 08/18/24 Time of Service: 18:47 Assessment and Plan Assessment and plan (1) Perforation of sigmoid colon due to diverticulitis: Status: Acute Assessment and plan: Patient had sudden perforation of sigmoid diverticulitis with resulting acute abdomen and leukopenia which is a sign of developing sepsis. Patient has received IV antibiotics, understands the situation and wishes to proceed to the operating room. I have explained that there is very little chance that nonoperative management would lead to improvement and that in fact worsening sepsis could lead to organ failure and . I explained the procedure of exploratory laparotomy with sigmoid resection and end sigmoid colostomy to the patient. He understands that there are risks with the surgery including those of bleeding, persistent infection in the abdomen, wound infection, wound disruption, stomal necrosis, intraperitoneal abscess. He agrees to proceed and signed the consent form. (2) KEIKO (acute kidney injury): Status: Acute Assessment and plan: Likely due to hypovolemia and intra-abdominal infection. Aggressive fluid resuscitation is indicated (3) Hyperkalemia: Status: Acute Assessment and plan: As with #2 above (4) Diabetes: Assessment and plan: monitor fingersticks, likely to be normal while NPO (5) Tobacco abuse: Assessment and plan: on nicotine Replacement (6) Hypertension: (7) History of coronary artery disease: Status: Acute Assessment and plan: Most recent records are from the [facility] and we are attempting to get these records. He also had developed worsening heart block and required pacemaker which was placed last week. (8) History of congestive heart failure: Assessment and plan: The patient is pretty clear on a history of left heart failure but it seems that this has resolved with medical management History of Present Illness Narrative: Patient presents with sudden onset left lower abdominal pain while he was trying to move his bowels this morning. He was doubled over in pain and tried to rest. He then moved his bowels again leading to very severe pain which was unrelenting and he presented to the emergency room where he appeared to be possibly having a ruptured aneurysm. CTA of abdomen and pelvis showed normal vessels but perforation of the inflamed sigmoid colon with localized free air and diffuse free air in the abdomen.He has had multiple previous colonoscopies and was aware of polyps. Patient has a past history of cigarette smoking which she quit in November 2023. At some time in the past he had an LA. There was a heart catheterization in [address] [facility]. The patient states that he had another heart catheterization at the [facility] years ago that was okay. He was told he had fluid around the heart, congestive heart failure and that was treated with changes of medications and Lasix.He gradually developed heart block and just 1 week ago had a pacemaker placed.Currently the ER staff is trying to get some of the records from the [facility]. Review of Systems All systems reviewed & are unremarkable except as noted in HPI and below Constitutional Constitutional: Reports as per HPI Eyes Eyes: Denies change in vision ENT Ears, Nose, Mouth, and Throat: Reports abnormal hearing (using an amp type device with ear buds) Cardiovascular Cardiovascular: Denies chest pain, Denies leg edema, Denies palpitations and Reports dyspnea (mild due to pain) Respiratory Respiratory: Reports dyspnea (mild due to pain) Gastrointestinal Gastrointestinal: Reports as per HPI, Denies constipation, Denies nausea and Denies vomiting Genitourinary Genitourinary: Denies difficulty urinating and Denies dysuria Musculoskeletal Musculoskeletal: Denies muscle weakness Neurologic Neurologic: Reports abnormal hearing (using an amp type device with ear buds) Endocrine Endocrine: Denies palpitations PFSH All Active Problems (Updated 08/18/24 @ 19:10 by Abigail Ryan MD) History of coronary artery disease (Acute) KEIKO (acute kidney injury) (Acute) Hyperkalemia (Acute) Perforation of sigmoid colon due to diverticulitis (Acute) Medical History (Updated 08/18/24 @ 19:10 by Abigail Ryan MD) History of congestive heart failure Hypercholesteremia Tobacco abuse Diabetes Hypertension Kidney stone on left side Surgical History History of back surgery Social History (Updated 08/18/24 @ 18:53 by Abigail Ryan MD) Smoking/Tobacco Use Status: Former Tobacco Use Smoking risk assessment performed?: Yes Alcohol Intake: former Year quit: 2023 Drug use: Never Substance use type: does not use Do you feel safe at home: Yes Do you feel safe in your relationship?: Yes Meds Allergies and Home Medications Allergies Allergy/AdvReac Type Severity Reaction Status Date / Time lidocaine Allergy Severe Other (See Unverified 08/18/24 14:55 Comment) latex Allergy Mild Skin Rash Unverified 08/18/24 14:55 Home Medications ?Medication ?Instructions ?Recorded ?Confirmed ?Type aspirin 81 mg tablet,delayed 81 mg PO DAILY 11/18/18 08/18/24 History release (Aspir-Low) amlodipine 5 mg tablet 5 mg PO DAILY 09/08/23 08/18/24 History omega 9-hme-sts-fish oil 1,000 mg 1 cap PO DAILY 09/08/23 02/06/24 History (120 mg-180 mg) capsule (Fish Oil) omeprazole 20 mg capsule,delayed 20 mg PO DAILY 09/08/23 08/18/24 History release ropinirole 2 mg tablet 2 mg PO DAILY 09/08/23 08/18/24 History rosuvastatin 40 mg tablet 40 mg PO DAILY 09/08/23 08/18/24 History cyanocobalamin (vitamin B-12) 250 250 mcg PO DAILY 02/06/24 08/18/24 History mcg tablet (Vitamin B-12) furosemide 20 mg tablet 20 mg PO DAILY 02/06/24 08/18/24 History ferrous gluconate 324 mg (38 mg 324 mg PO DAILY 08/18/24 08/18/24 History iron) tablet metformin 500 mg tablet,extended 500 mg PO BID 08/18/24 08/18/24 History release 24 hr naproxen 375 mg tablet,delayed 375 mg PO BID PRN 08/18/24 08/18/24 History release (EC-Naprosyn) nicotine (polacrilex) 2 mg gum 2 mg PO Q2H PRN 08/18/24 08/18/24 History sildenafil 50 mg tablet 50 mg PO ONCE PRN 08/18/24 08/18/24 History Exam Narrative Exam Narrative: Diaphoretic patient who is quite hard of hearing but alert and oriented, very uncomfortable but is able to move somewhat on his own. Const General: cooperative, acute distress, anxious and diaphoretic Nutritional Appearance: obese [facility] Head: normal to inspection Eyes General: appearance normal, both eyes and all related structures Neck Neck: normal visual inspection, no lymphadenopathy and supple Resp Effort & Inspection: normal respiratory effort Auscultation: diminished lung sounds and no rhonchi Cardio Rate: regular rate and tachycardic Rhythm: regular rhythm GI Inspection: distended and obesity Palpation: firm and guarding Auscultation: normal bowel sounds Skin General skin exam: no rashes or lesions noted Neuro General: patient alert, patient awake and patient oriented x3 Extrem General: normal to inspection, capillary refill normal, no pedal edema and other (Unable to palpate pedal pulses) Psych Mental Status: mental status grossly normal Mood: anxious mood Results Imaging Abdomen CT scan report/results: report reviewed and image reviewed EKG: image reviewed Labs 08/18/24 16:05 08/18/24 16:05 Labs: Laboratory Results - last 24 hr 08/18/24 08/18/24 15:34 16:05 WBC Cancelled 1.77 L* RBC Cancelled 4.22 L Hgb Cancelled 13.6 Hct Cancelled 40.2 MCV Cancelled 95 MCH Cancelled 32.2 MCHC Cancelled 33.8 RDW Cancelled 12.2 Plt Count Cancelled 106 L MPV Cancelled 10.7 Immature Gran % Cancelled See Differential Neutrophils % Cancelled 30.0 Band Neutrophils % Cancelled 28 Lymphocytes % Cancelled 28.0 Atypical Lymphs % Cancelled 2 Monocytes % Cancelled 6.0 Eosinophils % Cancelled 4.0 Basophils % Cancelled 0.0 Metamyelocytes % Cancelled 2 Myelocytes % Cancelled Promyelocytes % Cancelled Other Cells % Cancelled Nucleated RBC % Cancelled 0.0 Absolute Neutrophils Cancelled 1.03 L Absolute Lymphocytes Cancelled 0.53 L Absolute Monocytes Cancelled 0.11 Absolute Eosinophils Cancelled 0.07 Absolute Basophils Cancelled 0.00 RBC Morphology Cancelled Normal Polychromasia Cancelled Hypochromasia Cancelled Poikilocytosis Cancelled Basophilic Stippling Cancelled Anisocytosis Cancelled Microcytosis Cancelled Macrocytosis Cancelled Spherocytes Cancelled Tear Drop Cells Cancelled Ovalocytes Cancelled Stomatocytes Cancelled [place] Bodies Cancelled Yair Cells/Echinocytes Cancelled Acanthocytes (Spur) Cancelled Schistocytes Cancelled VBG Lactate 3.9 H* Sodium Cancelled 139 Potassium Cancelled 5.5 H Chloride Cancelled 104 Carbon Dioxide Cancelled 28.9 Anion Gap Cancelled 6.1 BUN Cancelled 23 H Creatinine Cancelled 1.5 H Est GFR (CKD-EPI 2020) Cancelled 49.16 Glucose Cancelled 136 H Calcium Cancelled 9.8 Magnesium Cancelled 1.3 L Total Bilirubin Cancelled 0.34 AST Cancelled 25 ALT Cancelled 25 Alkaline Phosphatase Cancelled 76 Total Protein Cancelled 7.2 Albumin Cancelled 3.4 Lipase Cancelled 18 ABO/Rh Cancelled O Positive Antibody Screen Cancelled NEGATIVE Last Vital Signs Temp 35.8 C L 08/18/24 14:48 Pulse 84 08/18/24 14:48 Resp 18 08/18/24 14:48 BP 126/54 L 08/18/24 14:48 Pulse Ox 96 08/18/24 14:48 Time Spent Time spent with Patient: 40-54 minutes Time was spent: preparing to see the patient(eg.review tests), obtaining and/or reviewing separately otained hiistory and counseling the patient
[2024-08-18 18:56] LABS: Potassium 4.7 mmol/L (3.5-5.1)
[2024-08-18] MEDS: Lactated Ringers 1,000 ML 30 ML IV (19:44)
[2024-08-18] MEDS: Enoxaparin 40 MG/0.4 ML SYR SC (20:02)
[2024-08-18] MEDS: Bupivacaine 0.25% Pres-Free 30 ML VIAL (20:36)
[2024-08-18] MEDS: Piperacillin/Tazobactam 4.5 GM VIAL (20:54)
--- NOTE | 2024-08-18 22:32 | ROE_ITS ---
Operative Note Operative Note PRE-OP DIAGNOSIS: Acute abdomen secondary to perforated sigmoid diverticulitis POST-OP DIAGNOSIS: same PROCEDURE: Exploratory laparotomy, sigmoid colon resection, end sigmoid colostomy SURGEON: Abigail Ryan HAZARDOUS WASTE REMOVER: Trevor Woods ANESTHESIA TYPE: General LMA/ETT Refer to Anesthesia Record ESTIMATED BLOOD LOSS: 50 PATHOLOGY: other (Portion of sigmoid colon) COMPLICATIONS: None Patient was transported to: ICU Patient's condition: stable Indications: Patient presents with acute abdomen from perforated sigmoid diverticulitis clinical picture consistent with developing sepsis Findings: Sigmoid diverticulitis with 2 x 2 cm area of liquefied necrosis. Minimal abdominal soilage. Procedure Description: Patient was brought to the operating room and placed on the table in the supine position. The patient was positively identified and administered a satisfactory general endotracheal anesthetic. A Carolina catheter And sequential compression devices were placed and the abdomen was prepped With Hibiclens and draped in sterile fashion. A timeout was performed noting the identity of the patient, the planned procedure. A low midline incision was made dissecting through thick properitoneal fat into the peritoneum with the findings noted above. The diseased portion of sigmoid colon was mobilized using cautery dissection, encircled distal to the diseased portion but still proximal to the rectosigmoid junction, and divided with 2 loads of the MARY stapler. After dividing the peritoneum over the mesentery, the mesentery was divided close to the bowel wall utilizing the LigaSure device. Proximal to the pathologic portion at approximately the junction of the descending colon and sigmoid colon, the bowel was divided with another application of the MARY stapler. The specimen was sent for pathology. A Prolene suture with long tags was placed at the suture line of the Patel pouch. After irrigating the abdomen the descending colon was mobilized enough to reach the previously marked colostomy site. The skin cold springs was incised and discarded, the fat dissected in a cruciate incision made in the anterior fascia such that the and sigmoid stoma could be brought up through the rectus muscle. Final irrigations were performed The midline fascia was reapproximated with 2 running 0 PDS sutures tied to themselves in the mid part. 30 cc of quarter percent Marcaine were infiltrated into the fascia overlying the rectus muscle. The subcutaneous tissue was irrigated and Telfa ang were placed to the depth of the wound. The skin edges were reapproximated with interrupted 2-0 nylon sutures between the ang. An occlusive dressing was placed. The colostomy was opened and matured with interrupted 2-0 Vicryl sutures. Some dusky edges were trimmed.A colostomy appliance was placed. Patient emerged from anesthesia in stable condition was taken to the ICU for observation. Date of Procedure: 08/18/24
--- NOTE | 2024-08-18 22:39 | W.ANESNERVE ---
Nerve Block Single Injection Procedure Date and Time Date Performed: 08/18/24 Procedure Start: 22:00 Location Where Procedure Performed Procedure Location: Operating Room Procedure Stop: 22:05 Reason Performed: Postoperative Analgesia Requesting Provider: Abigail Ryan Timeout Performed Timeout Performed: Yes Monitoring Used ECG, Blood Pressure, SpO2, ETCO2 and See EMR for corresponding vital signs Sterility Sterility: Hand Hygiene, Surgical Cap, Surgical Mask, Sterile Gloves and Chlorhexidine Sedation Given During Procedure Sedation Given (Indicate Dose Given): No Sedation given Patient Mental Status Patient Mental Status: Performed under general anesthesia Nerve Block 1st Nerve Block: Laterality: Bilateral Block Type: TAP Bilateral Ultrasound Image Saved?: Yes Needle / Catheter Used: 100mm SonoPlex II Local Anesthetic Bolus (Indicate Dose Given): Lidocaine used for local infiltration of skin, Injected in 3-5ml increments after negative blood aspiration, Half of Total block solution given into each side, Bupivacaine 0.25% Dose:: 20ml and Exparel Dose:: 20ml Additives (Indicate Dose Given): None Ultrasound: Sterile probe cover and gel used Nerve Stimulator: Not Used Paresthesia: None Procedure Tolerated: No Complications and Patient tolerated well Procedure Outcome: Successful Performed By: Adonis Otto
[2024-08-19] VITALS (92 sets, daily range): BP systolic 80–126; BP diastolic 51–93; PULSE 0–97; RESP 9–30; TEMP 36–37.6; O2SAT 86–100
[2024-08-19] MEDS: HYDROmorphone 2 MG/ML SYR 1 MG IVP ×8 (02:19→22:26)
[2024-08-19] MEDS: Ondansetron 4 MG/2 ML VIAL IVP ×2 (02:20→18:24)
[2024-08-19] MEDS: ACETAMINOPHEN 1,000 MG/100 ML BAG 400 MG IVPB ×3 (03:28→20:23)
[2024-08-19] MEDS: Nicotine 14 MG/24 HR PATCH TD (04:27)
[2024-08-19] MEDS: Lactated Ringers 1,000 ML 125 ML IV (05:51)
[2024-08-19 05:58] LABS: Abs Immature Grans 0.09 10^3/uL (0.0-0.06); HCT 34.4 % (40.0-50.0); HGB 11.8 g/dL (13.5-17.5); MCH 32.7 pg (27.0-33.0); MCHC 34.3 % (32.0-36.0); MCV 95 fL (80-95); MPV 10.7 fL (8.0-11.0); RBC 3.61 10^6/uL (4.36-5.78); RDW 12.6 % (11.8-14.1); RDW-SD 43.8 fL; WBC 9.11 10^3/uL (4.4-10.8)
[2024-08-19 06:12] LABS: Anion Gap 6.4 mmol/L (3-11); BUN 23 mg/dL (7-18); CO2 25.6 mmol/L (21.0-32.0); CREATININE 1.7 mg/dL (0.70-1.30); Calcium 8.8 mg/dL (8.5-10.1); Chloride 104 mmol/L (98-107); Glucose 217 mg/dL (74-106); Sodium 136 mmol/L (136-145)
[2024-08-19 06:36] LABS: Potassium 6.1 mmol/L (3.5-5.1)
[2024-08-19 06:50] LABS: Platelet Count 95 10^3/uL (130-400)
[2024-08-19 07:02] LABS: Absolute Lymphocyte Count 0.27 10^3/uL (1.2-3.4); Absolute Monocyte Count 0.91 10^3/uL (0.1-0.8); Absolute Neutrophil Count 7.83 10^3/uL (1.2-6.7); Bands % 17 %
[2024-08-19 07:03] LABS: Diff Comment Manual Differential; Metamyelocytes % 1; RBC Morphology Normal
--- NOTE | 2024-08-19 07:51 | W.PM.PROGNOT ---
Date of Service Date of service: 08/19/24 Time of Service: 07:51 Assessment and Plan Assessment and plan (1) Perforation of sigmoid colon due to diverticulitis: Status: Acute Assessment and plan: POD#1 s/p Exploratory Laparotomy with Sigmoid Colon Resection and End Sigmoid Colostomy Pain currently well managed NPO for now, consider starting clears later today Colostomy- Stoma appears edematous, but healthy and well perfused. Pulmonary Toilet Encouraged sitting in the chair, use of the incentive spirometer, ambulation Carolina in place- Light yellow urine noted (2) KEIKO (acute kidney injury): Status: Acute Assessment and plan: Likely due to hypovolemia and intra-abdominal infection. Aggressive fluid resuscitation is indicated (3) Hyperkalemia: Status: Acute Assessment and plan: As with #2 above (4) Diabetes: Assessment and plan: monitor fingersticks, likely to be normal while NPO (5) Tobacco abuse: Assessment and plan: on nicotine Replacement (6) Hypertension: (7) History of coronary artery disease: Status: Acute Assessment and plan: He also had developed worsening heart block and required pacemaker which was placed last week. (8) History of congestive heart failure: Assessment and plan: The patient is pretty clear on a history of left heart failure but it seems that this has resolved with medical management Subjective Subjective Interval history since last seen: Arrive with Mani resting in bed. He states he has not been able to sleep. Currently he states his pain is well controlled and is feeling well. Denies any nausea or vomiting. Exam Const General: cooperative and comfortable Orientation: alert and oriented x3 Resp Effort & Inspection: normal respiratory effort, no audible wheezes and no cough GI Palpation: soft, no guarding and tender Other: Midline incision with dressing covering it. Colostomy- Stoma is edematous, pink with some bright red blood noted in the ostomy bag Objective Last Vital Signs Temp 37.6 C H 08/19/24 00:16 Pulse 60 08/19/24 00:01 Resp 22 08/19/24 00:16 BP 115/70 08/19/24 00:16 Pulse Ox 97 08/19/24 00:16 Laboratory Results - last 24 hr 08/18/24 08/18/24 08/18/24 15:34 16:05 18:45 WBC Cancelled 1.77 L* RBC Cancelled 4.22 L Hgb Cancelled 13.6 Hct Cancelled 40.2 MCV Cancelled 95 MCH Cancelled 32.2 MCHC Cancelled 33.8 RDW Cancelled 12.2 Plt Count Cancelled 106 L MPV Cancelled 10.7 Immature Gran % Cancelled See Differential Neutrophils % Cancelled 30.0 Band Neutrophils % Cancelled 28 Lymphocytes % Cancelled 28.0 Atypical Lymphs % Cancelled 2 Monocytes % Cancelled 6.0 Eosinophils % Cancelled 4.0 Basophils % Cancelled 0.0 Metamyelocytes % Cancelled 2 Myelocytes % Cancelled Promyelocytes % Cancelled Other Cells % Cancelled Nucleated RBC % Cancelled 0.0 Absolute Neutrophils Cancelled 1.03 L Absolute Lymphocytes Cancelled 0.53 L Absolute Monocytes Cancelled 0.11 Absolute Eosinophils Cancelled 0.07 Absolute Basophils Cancelled 0.00 RBC Morphology Cancelled Normal Polychromasia Cancelled Hypochromasia Cancelled Poikilocytosis Cancelled Basophilic Stippling Cancelled Anisocytosis Cancelled Microcytosis Cancelled Macrocytosis Cancelled Spherocytes Cancelled Tear Drop Cells Cancelled Ovalocytes Cancelled Stomatocytes Cancelled [place] Bodies Cancelled [place] Cells/Echinocytes Cancelled Acanthocytes (Spur) Cancelled Schistocytes Cancelled VBG Lactate 3.9 H* Sodium Cancelled 139 Potassium Cancelled 5.5 H 4.7 Chloride Cancelled 104 Carbon Dioxide Cancelled 28.9 Anion Gap Cancelled 6.1 BUN Cancelled 23 H Creatinine Cancelled 1.5 H Est GFR (CKD-EPI 2020) Cancelled 49.16 Glucose Cancelled 136 H Calcium Cancelled 9.8 Magnesium Cancelled 1.3 L Total Bilirubin Cancelled 0.34 AST Cancelled 25 ALT Cancelled 25 Alkaline Phosphatase Cancelled 76 Total Protein Cancelled 7.2 Albumin Cancelled 3.4 Lipase Cancelled 18 ABO/Rh Cancelled O Positive Antibody Screen Cancelled NEGATIVE 08/19/24 05:35 WBC 9.11 RBC 3.61 L Hgb 11.8 L Hct 34.4 L MCV 95 MCH 32.7 MCHC 34.3 RDW 12.6 Plt Count 95 L MPV 10.7 Immature Gran % See Differential Neutrophils % 69.0 Band Neutrophils % 17 Lymphocytes % 3.0 Atypical Lymphs % Monocytes % 10.0 Eosinophils % 0.0 Basophils % 0.0 Metamyelocytes % 1 Myelocytes % Promyelocytes % Other Cells % Nucleated RBC % 0.0 Absolute Neutrophils 7.83 H Absolute Lymphocytes 0.27 L Absolute Monocytes 0.91 H Absolute Eosinophils 0.00 Absolute Basophils 0.00 RBC Morphology Normal Polychromasia Hypochromasia Poikilocytosis Basophilic Stippling Anisocytosis Microcytosis Macrocytosis Spherocytes Tear Drop Cells Ovalocytes Stomatocytes [place] Bodies Yair Cells/Echinocytes Acanthocytes (Spur) Schistocytes VBG Lactate Sodium 136 Potassium 6.1 H* D Chloride 104 Carbon Dioxide 25.6 Anion Gap 6.4 BUN 23 H Creatinine 1.7 H Est GFR (CKD-EPI 2020) 42.30 Glucose 217 H Calcium 8.8 Magnesium Total Bilirubin AST ALT Alkaline Phosphatase Total Protein Albumin Lipase ABO/Rh Antibody Screen Time Spent with Patient Time Spent with Patient: <25 minutes Time was spent: preparing to see the patient(eg.review tests), obtaining and/or reviewing separately otained hiistory and counseling the patient
[2024-08-19] MEDS: Pantoprazole 40 MG VIAL IVP (07:54)
[2024-08-19] MEDS: PIPERACILLIN/TAZO 4.5 GM in Normal Saline 100 ML IVPB ×3 (07:54→20:24)
[2024-08-19] MEDS: Enoxaparin 40 MG/0.4 ML SYR SC (07:55)
[2024-08-19 08:02] LABS: Magnesium 2.1 mg/dL (1.8-2.4); Potassium 5.5 mmol/L (3.5-5.1)
[2024-08-19] MEDS: Insulin Aspart 300 UNITS/3 ML PEN 6 UNITS SC (08:35)
--- NOTE | 2024-08-19 08:54 | INITIAL_ITS ---
Date of service: 08/19/24 Time of Service: 08:54 Care Management Initial Assmt Initial Assessment Reason for Hospitalization: abdominal pain- perforated sigmoid colon, s/p cary's procedure Functional Status/Living Situation Patient Presentation: Mani was admitted through the ER yesterday with c/o severe abdominal pain. He was found to have a perforation of the sigmoid colon, due to diverticulitis. He was brought to the OR and underwent an Exploratory Laparotomy with Sigmoid Colon Resection and End Sigmoid Colostomy . Of note, Mani had a pacemaker placed recently. He still has steri- strips covering that incision. When met with Mani today, he was sitting up in the bed, visiting with his , Ella, and his brother. All 3 were very pleasant. Mani stated that he is actually feeling pretty good, he was telling jokes and laughing. His pain is controlled. Mani is very hopeful that his ostomy will be able to be reversed. He is hoping to have short term HH RN on discharge to help him and Ella learn to care for the ostomy. 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 He still likes to take walks with his gun. Medications Medication Management: No Issues/Barriers identified Advance Directives Advance Directives: Do you have an Advance Directive: N 06/25/13 11:44 AD On File at [facility]: N 11/15/12 07:06 Date Asked 08/18/24 08/18/24 15:00 AD Date Reviewed COLST On File at [facility] COLST Date Scanned Code Status Resuscitation Status Full Code Insurance Coverage/Financial Issues Insurance: [facility] has been notified by access of admission, and [facility] Financial Issues: denies Care Team Visit Care Team Role Provider Type Unknown Unknown Primary Care Provider STAFF PHYSICIAN Mariposa Saeed RDN, CDCES Other Providers HORSE IDENTIFIER Letitia Santana Other Providers HORSE IDENTIFIERZEYAD Lee RDN Other Providers HORSE IDENTIFIER Jorge Luis Sethi MD Emergency Provider [facility] STAFF PHYSICIAN Abigail Ryna MD Admit Provider [facility] STAFF PHYSICIAN Attending Provider Other: PCP is at the [facility] Discharge Potential Discharge Needs: PCP F/U Appt and Surgical F/U Appt Anticipated Barriers to Discharge: None Identified Patient/Family Education Needs: Review discharge instructions, discuss Ask Me Three Transportation: Private vehicle Plan: Anticipate that Mani will be discharged home when medically ready. He will f/u with his PCP at the [facility], and with the surgeon. He may need HH RN while he adjusts to his ostomy. He will f/u with his plan of care and transport home wi th his . CM will continue to follow and update the plan as needed. Social Determinants of Health Screening Social Determinants of Health last assessed: 08/19/24 Will the Patient Participate in the Screening?: Yes Do you worry about having a steady place to live?: no Problems where you live: no known problems In the past 12 months, have you had to go without electric, gas, oil or water in your home?: no Have you or anyone in your house had to go without enough food to eat?: no Has lack of transportation kept you from medical appointments or from doing things needed for daily living?: no Has anyone in your life made you feel unsafe or unsupported?: no How hard is it for you to pay for the very basics like food, housing, medical care, and heating? Would you say it is:: Not hard at all Do you want help finding or keeping work or a job?: I do not need or want help If for any reason you need help with day-to-day activities such as bathing, preparing meals, shopping, managing finances, etc., do you get the help you need?: I get all the help I need How often do you feel lonely or isolated from those around you?: Never Do you speak a language other than Macedonian at home?: No Does the patient want assistance with any of the above?: No PFSH All Active Problems (Updated 08/19/24 @ 10:16 by Kraig Rutherford) DVT prophylaxis (Acute) Hypomagnesemia (Acute) History of coronary artery disease (Acute) KEIKO (acute kidney injury) (Acute) Hyperkalemia (Acute) Perforation of sigmoid colon due to diverticulitis (Acute) Medical History (Updated 08/19/24 @ 10:16 by Kraig Rutherford) Restless leg syndrome GERD (gastroesophageal reflux disease) History of congestive heart failure Hypercholesteremia Tobacco abuse Diabetes Hypertension Kidney stone on left side Surgical History S/P cardiac catheterization no stents S/P placement of cardiac pacemaker History of back surgery Social History Smoking/Tobacco Use Status: Former Tobacco Use Smoking risk assessment performed?: Yes Alcohol Intake: former Year quit: 2023 Drug use: Never Substance use type: does not use Do you feel safe at home: Yes Do you feel safe in your relationship?: Yes Readmission Within the Past 30 Days Yes or No: No Anticipated HH Services Anticipated HH Services at Discharge [facility] Needed, RN (ostomy teaching) Following Provider:
--- NOTE | 2024-08-19 09:12 | MCONE_ITS ---
Date of service: 08/19/24 Time of Service: 09:12 Assessment and Plan Assessment and plan (1) Perforation of sigmoid colon due to diverticulitis: Status: Acute Assessment and plan: POD #1 s/p sigmoid colectomy and colostomy without complication Management including pain and diet advancement per surgery. (2) Hyperkalemia: Status: Acute Assessment and plan: In setting of KEIKO. Improved and now mild with some initial insulin. I don't think we need calcium gluconate now. No rhythym changes on monitor and storage bin tender. Will add D5 and increase fluid rate, add basal insulin along with prn sliding scale. We can't use oral binders for now. Repeat BMP at 12pm (3) KEIKO (acute kidney injury): Status: Acute Assessment and plan: C/w pre-renal from acute illness. Making urine. conservative increase in fluids. POCUS later in day to confirm fluid status, need for bolus. (4) History of coronary artery disease: Status: Acute Assessment and plan: Stable CAD, no symptoms. Continue statin, resume ASA 81mg if okay with surgery. (5) Hypertension: Assessment and plan: BP low normal, hold BP meds for now. Amlodipine has a long half life so it's not a big deal if he misses a day or two. (6) Tobacco abuse: Assessment and plan: quit in past year, has used gum, written prn. Also COPD diagnosis in the record but doesn't use inhalers. No evidence this is active. (7) Diabetes: Assessment and plan: Holding metformin with KEIKO. Add low dose basal insulin as we are using D5 containing fluids to help with hyperkalemia. Titrate pending fingersticks. (8) Hypomagnesemia: Status: Acute Assessment and plan: 2g IV, follow tomorrow. (9) DVT prophylaxis: Status: Acute Assessment and plan: enoxaparin per surgery, also SCDs (10) GERD (gastroesophageal reflux disease): Assessment and plan: on chornic PPI, giving IV for now. (11) Restless leg syndrome: Assessment and plan: resume ropinirole when taking po. this should help him sleep. Check the iron before discharge to see if he heeds this supplemented as low iron (ferritin <50) will make RLS worse. History of Present Illness History of Present Illness Chief Complaint: abdominal pain Narrative: 73 yo M with type 2 DM controlled on metformin, stable CAD, h/o HFpEF, COPD, and heart block s/p pacemaker 1 week prior to admission at [facility] who presented 08/18 with sudden onset LLQ pain with loose stools and shaking chills. He was diagnosed with perforated diverticulitis and proceeded to sigmoid colectomy with colostomy placement that was uncomplicated. KEIKO and hyperkalemia noted, medical consult requested. He feels like crap today, but better than yesterday. Pain is 6/10 in LLQ, constant. The pain medication does help. No fever/chills this morning. No nausea or vomiting. No chest pain, palpitations, dizziness, or shortness of breath. He notices his voice is raspy today. Review of Systems All systems reviewed & are unremarkable except as noted in HPI and below ENT Ears, Nose, Mouth, and Throat: Reports nasal congestion, Denies nasal discharge and Denies sinus pain Gastrointestinal Gastrointestinal: Denies bloating Comments: no passing gas yet PFSH All Active Problems (Updated 08/19/24 @ 10:16 by Kraig Rutherford) DVT prophylaxis (Acute) Hypomagnesemia (Acute) History of coronary artery disease (Acute) KEIKO (acute kidney injury) (Acute) Hyperkalemia (Acute) Perforation of sigmoid colon due to diverticulitis (Acute) Medical History (Updated 08/19/24 @ 10:16 by Kraig Rutherford) Restless leg syndrome GERD (gastroesophageal reflux disease) History of congestive heart failure Hypercholesteremia Tobacco abuse Hypertension Diabetes Kidney stone on left side Surgical History S/P cardiac catheterization no stents S/P placement of cardiac pacemaker History of back surgery Social History Smoking/Tobacco Use Status: Former Tobacco Use Smoking risk assessment performed?: Yes Alcohol Intake: former Year quit: 2023 Drug use: Never Substance use type: does not use Do you feel safe at home: Yes Do you feel safe in your relationship?: Yes Exam Narrative Exam Narrative: GEN: Alert and oriented x 4, pleasant and cooperative, gives linear history. No acute distress at rest. HEENT: Head atraumatic. Conjunctiva clear, no icterus. PEERL, EOMI. no rhinorrhea. MMM, OP benign. Neck is supple with no masses or lymphadenopathy, trachea midline LUNGS: CTAB with normal effort CV: RRR with 1/6 murmur at LUSB, no gallops, or rubs. ABD: active bowel sounds noted on left more than right. soft, mildly diffusely tender, nondistended. Colostomy pink, small blood around wound, no gas/stool in bag. : [place] in place draining yellow urine EXT: no cyanosis, clubbing, or edema MSK: No joint redness or swelling NEURO: CN 2-12 grossly intact except hard of hearing. Normal movement of 4 extremities. Normal speech and coordination. No tremor SKIN: faintly pink papular dry rash left chest. Pacer incision intact, dry blood on adhesive strips, no discharge or surrounding redness. PSYCH: normal mood and affect Results Last Vital Signs Temp 36 C L 08/19/24 08:53 Pulse 71 08/19/24 09:01 Resp 16 08/19/24 09:01 BP 109/55 L 08/19/24 09:01 Pulse Ox 93 08/19/24 09:01 Labs 08/19/24 05:35 08/19/24 07:45 Labs: Laboratory Results - last 24 hr 08/18/24 08/18/24 08/18/24 15:34 16:05 18:45 WBC Cancelled 1.77 L* RBC Cancelled 4.22 L Hgb Cancelled 13.6 Hct Cancelled 40.2 MCV Cancelled 95 MCH Cancelled 32.2 MCHC Cancelled 33.8 RDW Cancelled 12.2 Plt Count Cancelled 106 L MPV Cancelled 10.7 Immature Gran % Cancelled See Differential Neutrophils % Cancelled 30.0 Band Neutrophils % Cancelled 28 Lymphocytes % Cancelled 28.0 Atypical Lymphs % Cancelled 2 Monocytes % Cancelled 6.0 Eosinophils % Cancelled 4.0 Basophils % Cancelled 0.0 Metamyelocytes % Cancelled 2 Myelocytes % Cancelled Promyelocytes % Cancelled Other Cells % Cancelled Nucleated RBC % Cancelled 0.0 Absolute Neutrophils Cancelled 1.03 L Absolute Lymphocytes Cancelled 0.53 L Absolute Monocytes Cancelled 0.11 Absolute Eosinophils Cancelled 0.07 Absolute Basophils Cancelled 0.00 RBC Morphology Cancelled Normal Polychromasia Cancelled Hypochromasia Cancelled Poikilocytosis Cancelled Basophilic Stippling Cancelled Anisocytosis Cancelled Microcytosis Cancelled Macrocytosis Cancelled Spherocytes Cancelled Tear Drop Cells Cancelled Ovalocytes Cancelled Stomatocytes Cancelled [place] Bodies Cancelled Yair Cells/Echinocytes Cancelled Acanthocytes (Spur) Cancelled Schistocytes Cancelled VBG Lactate 3.9 H* Sodium Cancelled 139 Potassium Cancelled 5.5 H 4.7 Chloride Cancelled 104 Carbon Dioxide Cancelled 28.9 Anion Gap Cancelled 6.1 BUN Cancelled 23 H Creatinine Cancelled 1.5 H Est GFR (CKD-EPI 2020) Cancelled 49.16 Glucose Cancelled 136 H Calcium Cancelled 9.8 Magnesium Cancelled 1.3 L Total Bilirubin Cancelled 0.34 AST Cancelled 25 ALT Cancelled 25 Alkaline Phosphatase Cancelled 76 Total Protein Cancelled 7.2 Albumin Cancelled 3.4 Lipase Cancelled 18 ABO/Rh Cancelled O Positive Antibody Screen Cancelled NEGATIVE 08/19/24 08/19/24 05:35 07:45 WBC 9.11 RBC 3.61 L Hgb 11.8 L Hct 34.4 L MCV 95 MCH 32.7 MCHC 34.3 RDW 12.6 Plt Count 95 L MPV 10.7 Immature Gran % See Differential Neutrophils % 69.0 Band Neutrophils % 17 Lymphocytes % 3.0 Atypical Lymphs % Monocytes % 10.0 Eosinophils % 0.0 Basophils % 0.0 Metamyelocytes % 1 Myelocytes % Promyelocytes % Other Cells % Nucleated RBC % 0.0 Absolute Neutrophils 7.83 H Absolute Lymphocytes 0.27 L Absolute Monocytes 0.91 H Absolute Eosinophils 0.00 Absolute Basophils 0.00 RBC Morphology Normal Polychromasia Hypochromasia Poikilocytosis Basophilic Stippling Anisocytosis Microcytosis Macrocytosis Spherocytes Tear Drop Cells Ovalocytes Stomatocytes [place] Bodies Yair Cells/Echinocytes Acanthocytes (Spur) Schistocytes VBG Lactate Sodium 136 Potassium 6.1 H* D 5.5 H Chloride 104 Carbon Dioxide 25.6 Anion Gap 6.4 BUN 23 H Creatinine 1.7 H Est GFR (CKD-EPI 2020) 42.30 Glucose 217 H Calcium 8.8 Magnesium 2.1 Total Bilirubin AST ALT Alkaline Phosphatase Total Protein Albumin Lipase ABO/Rh Antibody Screen
--- NOTE | 2024-08-19 09:12 | W.INDIABCONS ---
Date of service: 08/19/24 Time of Service: 09:12 Diabetes Inpatient Consult Reason for Visit: Diabetes Education/Mgt Consult DESCRIPTION/ASSESSMENT: 73yo male patient with hx of CAD and DMII, admitted after surgical resection of sigmoid colon after perforation d/t diverticulitis. Unable to visit with patient today as I am not in the building today - will visit with pt in ICU or medsurg tomorrow to address any needs or desire for education. Pt takes Metformin ER 500mg BID at home. Currently ordered for Novolog correction TID on moderate sliding scale - metformin on hold d/t surgery 08/18. Currently npo Glucose was 217 both fasting and with capillary fs at 830am today. Most recent A1C in chart is 6.2 over 10years ago. Potassium high today - expected to improve with fluid resuscitation. BUN/Cr high Albumin and total protein labs wnl last vitamin D in chart was 31 in 2013 and supplement not on home med list Nutrition Dx: hyperglycemia related to history of diabetes and recent infection/surgical intervention, as evidenced by fasting glucose and fingersticks >200. Inadequate intake related to current clinical state, as evidenced by current npo status. estimated energy needs: 2390kcals (recommend [id number] for weight loss), 97-115g protein, 2390ml fluid INTERVENTION: Would suggest 10u insulin glargine HS to help bring fasting glucose closer to target, especially while npo. Suggest vitamin D lab and supplementation if needing correction Suggest A1c lab Adv diet as medically appropriate to bland, low fiber, cho consistent diet. Nutrition education to be offered to pt regarding low fiber diet and increasing as tolerated to higher fiber intake as well as glucose management education PLAN: will monitor labs/glucose trends, weight, po intake/diet advancement and offer pt outpatient nutrition services at discharge. Time Spent in Nutritional Counseling and Treatment: 0
[2024-08-19] MEDS: DEXTROSE 5%-0.9% SALINE 1,000 ML 125 ML IV (09:30)
[2024-08-19] MEDS: Insulin Glargine 300 UNITS/3 ML PEN 15 UNITS SC (09:52)
[2024-08-19] MEDS: Normal Saline Flush 10 ML SYR IVP (10:55)
[2024-08-19] MEDS: Insulin Aspart 300 UNITS/3 ML PEN SC ×2 (12:06→17:46)
[2024-08-19 12:50] LABS: Anion Gap 4.9 mmol/L (3-11); BUN 22 mg/dL (7-18); CO2 30.1 mmol/L (21.0-32.0); CREATININE 1.6 mg/dL (0.70-1.30); Calcium 9.4 mg/dL (8.5-10.1); Chloride 105 mmol/L (98-107); Glucose 241 mg/dL (74-106); Magnesium 2.1 mg/dL (1.8-2.4); Potassium 5.2 mmol/L (3.5-5.1); Sodium 140 mmol/L (136-145)
[2024-08-19] MEDS: Tiotropium Bromide-Respimat 10 PUFF INH 2 PUFF IH (13:17)
--- NOTE | 2024-08-19 13:50 | W.ANESPOSTOP ---
Postoperative Evaluation Date, Time and Location Date Performed: 08/19/24 Time Performed: 13:50 Patient Location: Intensive Care Unit Vital Signs Most Recent Imported Vital Signs: Most Recent Vital Signs Temp Pulse Resp BP Pulse Ox 36.9 C 62 21 112/80 94 08/19/24 13:17 08/19/24 13:10 08/19/24 13:10 08/19/24 13:01 08/19/24 13:10 Pain Score Most Recent Pain Score: Most Recent Pain Score Pain Level 5 08/19/24 10:54 Assessment Mental Status: Awake (Alert & Oriented to Patient Baseline) Airway and Respiratory Function: Patent airway with normal (patient baseline) respiratory exam Cardiovascular Function: Hemodynamically Stable Hydration Status: Adequately Hydrated Nausea & Vomiting: No Nausea or Vomiting Pain: Pain is tolerable per patient Peripheral Nerve Block: Regional nerve block not resolved at time of post operative discharge
[2024-08-20] VITALS (61 sets, daily range): BP systolic 72–145; BP diastolic 50–113; PULSE 59–83; RESP 9–23; TEMP 36.2–37; O2SAT 88–99
[2024-08-20] MEDS: Normal Saline Flush 10 ML SYR IVP ×4 (01:36→20:02)
[2024-08-20] MEDS: PIPERACILLIN/TAZO 4.5 GM in Normal Saline 100 ML IVPB ×4 (01:36→20:03)
[2024-08-20] MEDS: HYDROmorphone 2 MG/ML SYR 1 MG IVP ×2 (02:17→10:13)
[2024-08-20] MEDS: ACETAMINOPHEN 1,000 MG/100 ML BAG 400 MG IVPB ×2 (04:48→12:01)
[2024-08-20 06:26] LABS: Anion Gap 1.7 mmol/L (3-11); BUN 22 mg/dL (7-18); CO2 29.3 mmol/L (21.0-32.0); CREATININE 1.5 mg/dL (0.70-1.30); Calcium 8.7 mg/dL (8.5-10.1); Chloride 108 mmol/L (98-107); Estimated GFR 49.16 (mL/min/1.73m2); Glucose 157 mg/dL (74-106); Magnesium 2.2 mg/dL (1.8-2.4); Potassium 5.2 mmol/L (3.5-5.1); Sodium 139 mmol/L (136-145); Troponin I 13 ng/L (<or=76)
[2024-08-20] MEDS: Tiotropium Bromide-Respimat 10 PUFF INH 2 PUFF IH (08:19)
[2024-08-20] MEDS: Pantoprazole 40 MG VIAL IVP (08:28)
[2024-08-20] MEDS: Enoxaparin 40 MG/0.4 ML SYR SC (08:30)
[2024-08-20] MEDS: Insulin Aspart 300 UNITS/3 ML PEN SC (08:30)
--- NOTE | 2024-08-20 08:42 | PDOC.CMPRO ---
Date of service: 08/20/24 Time of Service: 08:42 Care Management Progress Note Progress Note Text Progress Note Text: Mani was sitting up in the bed when CM met with him today. His , sister and brother were also present. Mani was feeling really good because he learned from his 's urologist that she is cancer free at this time. Mani stated that he, physically, is also feeling better. His pain is pretty well controlled, he has been reading a booklet on ostomy care that was given to him by the surgeon. Mani was also up in the chair earlier today after her worked with PT. Mani asked if his ostomy supplies would be covered and available through the [facility]. CM called the [facility] CM, Elidia Poole, and confirmed that they would be both available and covered. Mani will likely need a visit with the wound/ostomy nurse at the [facility] - Marv Mena to establish with that. Mani will be sent home with supplies from surgery, and will also be receiving HH RN. Discharge Potential Discharge Needs: PCP F/U Appt and Surgical F/U Appt Anticipated Barriers to Discharge: None Identified Patient/Family Education Needs: Review discharge instructions, discuss Ask Me Three Transportation: Private vehicle Plan: Anticipate that Mani will be discharged home when medically ready. He will f/u with his PCP at the [facility], and with the surgeon. He will have HH RN while he adjusts to his ostomy. He will f/u with his plan of care and transport home with his . CM will continue to follow and update the plan as needed. Social Determinants of Health Screening Social Determinants of Health last assessed: 08/20/24 Will the Patient Participate in the Screening?: Yes Do you worry about having a steady place to live?: no Problems where you live: no known problems In the past 12 months, have you had to go without electric, gas, oil or water in your home?: no Have you or anyone in your house had to go without enough food to eat?: no Has lack of transportation kept you from medical appointments or from doing things needed for daily living?: no Has anyone in your life made you feel unsafe or unsupported?: no How hard is it for you to pay for the very basics like food, housing, medical care, and heating? Would you say it is:: Not hard at all Do you want help finding or keeping work or a job?: I do not need or want help If for any reason you need help with day-to-day activities such as bathing, preparing meals, shopping, managing finances, etc., do you get the help you need?: I get all the help I need How often do you feel lonely or isolated from those around you?: Never Do you speak a language other than Serbian at home?: No Does the patient want assistance with any of the above?: No Anticipated HH Services Anticipated HH Services at Discharge [facility] Needed, RN Following Provider: EVI Kaiser.
[2024-08-20] MEDS: Insulin Glargine 300 UNITS/3 ML PEN 15 UNITS SC (08:46)
--- NOTE | 2024-08-20 13:36 | IN_ITS ---
PT Notes Visit Reasons: perforated sigmoid s/p [facility] Inpatient Physical Therapy Evaluation Date: 08/20/24 Referring Doctor: Dr. Marsh PT Orders: PT CONSULT: s/p laparotomy Precautions: pacemaker precautions LUE (no flexion >90*, no lifting) Patient Profile/Admitting Diagnosis: Mani was admitted through the ER 08/18/24 with c/o severe abdominal pain. He was found to have a perforation of the sigmoid colon, due to diverticulitis. He was brought to the OR and underwent an Exploratory Laparotomy with Sigmoid Colon Resection and End Sigmoid Colostomy 08/18/24. Additionally 1 week s/p pacemaker placement. Social History/Home Situation: Lives with his in a private home. Independent at baseline, without AD. Equipment Owned/DME: none Subjective: Mani states that he's feeling good. He sat up to the chair this mo rning, and is anxious to do more walking. Objective: General Observation: Resting in bed, with telemetry, pulse oximeter and BP cuff in place. Wears external hearing device with handheld microphone. Mental Status: A&Ox3. Provides good history. Pain: denies ROM: Right Upper Extremity: WFL Left Upper Extremity: left UE in sling. Demonstrates active flexion to 60* functionally. Right Lower Extremity: WFL Left Lower Extremity: WFL Strength: Not assessed with resisted testing due to recent surgeries, but grossly demonstrates 3/5 or greater strength of all limbs Bed Mobility/Transfers: supine-sit: independent sit-stand: SBA and cues for technique stand-sit: SBA and cues for technique Gait: Ambulates 100' with FWW, SBA. Able to ambulate 6' in room without UE support, with good safety awareness. Navigates obstacles without difficulty. Balance: Static Sitting: Good Dynamic Sitting: good Static Standing: good Dynamic Standing: good Special Tests: Mobility Limitations Standardized Measure [facility] AM-PAC 6 clicks Basic Mobility Inpatient Short Form: Raw Score: 24 CMS Score: 0 Informed Consent/Education: Patient instructed in purpose of PT consult and plan of care. Treatment: Initial Evaluation (65478) Therapeutic Exercises ([id number]): Instructed in seated exercises: ankle pumps x 1 minute LAQ x 1 minute Instructed in static balance activities: small MORIAH standing without UE support small MORIAH standing with head turns 5x Assessment: Patient is a 73 year old male referred to physical therapy services following laproscopic surgery and recent pacemaker placement. Patient presents with decreased activity tolerance and need for transfer training following his recent surgeries. He is currently demonstrating the following impairment level findings: 1. Decreased LUE ROM due to post-op precautions 2. decreased activity tolerance 3. decreased UE/LE strength Impairments are contributing to the following functional limitations: 1. decreased tolerance to household distance ambulation due to recent surgeries 2. reliance on external support for household distance ambulation Patient is assessed as a Low 40115 complexity based on the following: History: as above Examination: functional limitations as above Presentation: evolving Decision Making: low complexity Goals: Goals X1 week 1. Supine-Sit : Independent 2. Sit-Supine : Independent 3. Sit-Stand : Independent 4. Stand-Sit : Independent 5. Bed-Chair : supervision without AD 6. Chair-Bed : supervision without AD 7. Gait : SBA without AD x 150' Plan of Care/Treatment Plan: 1-2x/day, 7 days/week x 1 week. Plan of care has been reviewed with the MATERIAL DISPATCHER providing the service under Physical Therapy direction. Initiate Physical Therapy intervention for strengthening, bed mobility, transfers, gait, stairs, balance training, use of assistive device. DISCHARGE RECOMMENDATIONS: Home with no services once medically stable TREATMENT CODE/TIME: [id number] ([id number], [id number]) Naila Yan, PT, DPT [facility]
--- NOTE | 2024-08-20 13:59 | W.PM.PROGNOT ---
Date of Service Date of service: 08/20/24 Time of Service: 13:59 Assessment and Plan Assessment and plan (1) History of coronary artery disease: Status: Acute (2) Perforation of sigmoid colon due to diverticulitis: Status: Acute Assessment and plan: POD #2 s/p Ex lap and Saldana's zosyn lovenox/asa protnix pain managment protocol pulm toilet PT wound care colostomy teaching home RN/supplies (3) Hyperkalemia: Status: Acute Assessment and plan: stable (4) Hypertension: (5) History of congestive heart failure: (6) Diabetes: (7) GERD (gastroesophageal reflux disease): (8) Tobacco abuse: (9) Colostomy in place: Status: Chronic Subjective Subjective Interval history since last seen: Patient is seen and examined: they are doing well. THey have : no headaches. No CP or SOB. no productive cough. no dysuria. no leg pain or swelling. able to urinate. tolerate liquids. minimal pain. Exam Narrative Exam Narrative: PHYSICAL EXAM GENERAL APPEARANCE: Alert, healthy appearance, oriented, x 3,? in no acute distress HYDRATION: Well hydrated HEAD, EYES, EARS, NECK, THROAT: Head is normocephalic, pupils equal, round, reactive to light and accommodation, ocular movement intact, sclera clear and no jaundice. ?Dentition intact. LUNGS: normal respiration/normal chest excursion. ?Clear to auscultation bilaterally. ?No wheeze. ?HEART: A fib EXTREMITY: No edema or cyanosis.? no leg pain, redness, swelling.? ABDOMEN: incision c/d/i osomy- duscky but will slough adn be fine. no output yet? Objective Last Vital Signs Temp 36.2 C L 08/20/24 09:01 Pulse 66 08/20/24 09:01 Resp 20 08/20/24 09:32 BP 94/70 L 08/20/24 09:01 Pulse Ox 92 08/20/24 09:01 Laboratory Results - last 24 hr 08/19/24 08/20/24 12:00 05:49 Sodium Cancelled 139 Potassium Cancelled 5.2 H Chloride Cancelled 108 H Carbon Dioxide Cancelled 29.3 Anion Gap Cancelled 1.7 L BUN Cancelled 22 H Creatinine Cancelled 1.5 H Est GFR (CKD-EPI 2020) Cancelled 49.16 Glucose Cancelled 157 H Calcium Cancelled 8.7 Magnesium 2.2 Troponin I 13 Time Spent with Patient Time Spent with Patient: >50 minutes Time was spent: preparing to see the patient(eg.review tests), obtaining and/or reviewing separately otained hiistory, ordering medications,tests, procedures, referring, communicating with other health healthcare applications analyst, indepentently interpreting results, counseling the patient, care coordination and other
--- NOTE | 2024-08-20 14:43 | W.PM.PROGNOT ---
Date of Service Date of service: 08/20/24 Time of Service: 10:00 Assessment and Plan Assessment and plan (1) Perforation of sigmoid colon due to diverticulitis: Status: Acute Assessment and plan: POD #21 s/p sigmoid colectomy and colostomy without complication Management including pain and diet advancement per surgery, seems to be recovering well. (2) Hyperkalemia: Status: Acute Assessment and plan: In setting of KEIKO. On fluids with D5 and basal and prn insulin. Now close to normal. No need for oral binders for now. (3) KEIKO (acute kidney injury): Status: Acute Assessment and plan: C/w pre-renal from acute illness. Improving, making good urine output. Consider POCUS to confirm fluid status, need for bolus. (4) History of coronary artery disease: Status: Acute Assessment and plan: Stable CAD, no symptoms. Continue statin, resume ASA 81mg now that eating. (5) Hypertension: Assessment and plan: BP low normal, hold BP meds for now. Amlodipine has a long half life so it's not a big deal if he misses a day or two. (6) Tobacco abuse: Assessment and plan: quit in past year, has used gum, written prn. Also COPD diagnosis in the record but doesn't use inhalers. No evidence this is active. (7) Diabetes: Assessment and plan: Holding metformin with KEIKO. Add low dose basal insulin as we are using D5 containing fluids to help with hyperkalemia. Sugars haven't been bad on this. (8) Hypomagnesemia: Status: Acute Assessment and plan: s/p 2g IV, improved (9) GERD (gastroesophageal reflux disease): Assessment and plan: on chornic PPI, giving IV for now. (10) Restless leg syndrome: Assessment and plan: resumed ropinirole. this should help him sleep. Check the iron before discharge to see if he heeds this supplemented as low iron (ferritin <50) will make RLS worse. (11) DVT prophylaxis: Status: Acute Assessment and plan: enoxaparin per surgery, also SCDs Subjective Subjective Patient reports: no new complaints and feels better; denies nausea, vomiting, shortness of breath or fever Interval history since last seen: Taking oral fluids this morning. Has a sandwhich but hasn't tried to eat yet. Pain is improving down to 4/10 from 6/10. Some gas in ostomy bag. no chest pain or palpitations Exam Narrative Exam Narrative: GEN: Alert and oriented x 4, pleasant and cooperative, gives linear history. No acute distress at rest. LUNGS: CTAB with normal effort CV: RRR with 1/6 murmur at LUSB, no gallops, or rubs. ABD: active bowel sounds noted on left more than right. soft, mildly diffusely tender, nondistended. Colostomy pink, small blood around wound, a little gas but no stool in bag. EXT: no cyanosis, clubbing, or edema SKIN: faintly pink papular dry rash left chest. Pacer incision intact, dry blood on adhesive strips, no discharge or surrounding redness. Objective Last Vital Signs Temp 36.2 C L 08/20/24 09:01 Pulse 66 08/20/24 09:01 Resp 20 08/20/24 09:32 BP 94/70 L 08/20/24 09:01 Pulse Ox 92 08/20/24 09:01 Laboratory Results - last 24 hr 08/20/24 05:49 Sodium 139 Potassium 5.2 H Chloride 108 H Carbon Dioxide 29.3 Anion Gap 1.7 L BUN 22 H Creatinine 1.5 H Est GFR (CKD-EPI 2020) 49.16 Glucose 157 H Calcium 8.7 Magnesium 2.2 Troponin I 13 Time Spent with Patient Time Spent with Patient: 35-49 minutes Time was spent: preparing to see the patient(eg.review tests), obtaining and/or reviewing separately otained hiistory, ordering medications,tests, procedures, referring, communicating with other health healthcare project manager, indepentently interpreting results, counseling the patient and care coordination
[2024-08-20] MEDS: Acetaminophen 500 MG TAB 1000 MG PO (20:04)
[2024-08-21] VITALS (7 sets, daily range): BP systolic 95–133; BP diastolic 64–82; PULSE 57–66; RESP 16–20; TEMP 36.5–37.1; O2SAT 89–98
[2024-08-21] MEDS: Acetaminophen 500 MG TAB 1000 MG PO ×3 (02:50→21:23)
[2024-08-21] MEDS: PIPERACILLIN/TAZO 4.5 GM in Normal Saline 100 ML IVPB ×4 (02:51→20:42)
[2024-08-21] MEDS: HYDROmorphone 2 MG/ML SYR 1 MG IVP ×3 (03:03→21:18)
[2024-08-21 07:34] LABS: Anion Gap 2.6 mmol/L (3-11); BUN 22 mg/dL (7-18); CO2 29.4 mmol/L (21.0-32.0); CREATININE 1.5 mg/dL (0.70-1.30); Calcium 9.1 mg/dL (8.5-10.1); Chloride 110 mmol/L (98-107); Estimated GFR 49.16 (mL/min/1.73m2); Glucose 110 mg/dL (74-106); Magnesium 2.1 mg/dL (1.8-2.4); Potassium 4.5 mmol/L (3.5-5.1); Sodium 142 mmol/L (136-145)
[2024-08-21] MEDS: Enoxaparin 40 MG/0.4 ML SYR SC (07:44)
[2024-08-21] MEDS: Pantoprazole 40 MG VIAL IVP (07:45)
[2024-08-21] MEDS: rOPINIRole 1 MG TAB 2 MG PO (07:48)
[2024-08-21] MEDS: Aspirin E.C. 81 MG TABEC PO (07:48)
[2024-08-21] MEDS: Rosuvastatin 20 MG TAB 40 MG PO (07:48)
[2024-08-21] MEDS: Furosemide 20 MG TAB PO (07:49)
[2024-08-21] MEDS: amLODIPine 5 MG TAB PO (07:49)
[2024-08-21] MEDS: Normal Saline Flush 10 ML SYR IVP ×2 (07:49→20:45)
--- NOTE | 2024-08-21 07:52 | W.PC.ACHO ---
Registration Status: Primary Language: Preferred Language: ED Information & Data Chief Complaint Abd Prob 08/18/24 16:30 Triage Note ems called for abdominal 08/18/24 14:48 pain. very tender on palpation. pt visbley shaking with mottling to abdomen. color improved with oxygen. chronic cough. pacemaker placed ~ 1 week ago. wearing sling on left arm. hypotensive which improved with fluids. Medical / Surgical History (Last Updated 08/19/24 @ 10:16 by Kraig Rutherford) Restless leg syndrome GERD (gastroesophageal reflux disease) History of congestive heart failure Hypercholesteremia Tobacco abuse Diabetes Hypertension Kidney stone on left side (Last Reviewed 08/19/24 @ 10:02 by Kraig Rutherford) S/P cardiac catheterization S/P placement of cardiac pacemaker History of back surgery Most Recent Vital Signs Temperature 36.5 C 08/21/24 07:44 Temperature Source Temporal Artery Scan 08/21/24 07:44 Pulse 66 08/21/24 07:44 Pulse 60 08/20/24 21:30 Respiratory Rate 20 08/21/24 07:44 Respiratory Effort Normal 08/19/24 04:18 Respiratory Depth Normal 08/19/24 04:18 Respiratory Pattern Normal 08/19/24 04:18 Blood Pressure 95/70 L 08/21/24 07:44 Blood Pressure Mean 73 08/20/24 21:01 Blood Pressure Position Supine 08/19/24 04:18 Pulse Oximetry 98 08/21/24 07:44 Oxygen Delivery Method Room Air 08/21/24 07:44 Oxygen Flow Rate 0 08/21/24 07:44 Pain Level 9 08/21/24 03:03 Allergies lidocaine Allergy (Severe, Unverified 08/18/24 14:55) Other (See Comment) all related drugs latex Allergy (Mild, Unverified 08/18/24 14:55) Skin Rash Active Medications Generic Name Dose Route Start Last Admin Trade Name Freq PRN Reason Stop Dose Admin Acetaminophen 1,000 mg 08/20/24 20:00 08/21/24 02:50 Acetaminophen 500 Mg Tab PO 1,000 mg Q8H SONIA Administration Amlodipine Besylate 5 mg 08/20/24 08:30 08/21/24 07:49 Amlodipine 5 Mg Tab PO 5 mg DAILY SONIA Administration Aspirin 81 mg 08/21/24 08:30 08/21/24 07:48 Aspirin E.C. 81 Mg Tabec PO 81 mg DAILY SONIA Administration Enoxaparin Sodium 40 mg 08/19/24 08:30 08/21/24 07:44 Enoxaparin 40 Mg/0.4 Ml Syr SC 09/18/24 08:29 40 mg Q24H SONIA Administration Furosemide 20 mg 08/21/24 08:30 08/21/24 07:49 Furosemide 20 Mg Tab PO 20 mg DAILY SONIA Administration Hydromorphone HCl 1 mg 08/19/24 02:08 08/21/24 03:03 Hydromorphone 2 Mg/Ml Syr IVP 1 mg Q2H PRN PRN Administration Piperacillin Sod/Tazobactam 100 mls @ 200 mls/hr 08/19/24 14:00 08/21/24 07:45 Sod 4.5 gm/ Sodium Chloride IVPB 200 mls/hr Q6H [facility] Administration Insulin Aspart 0 units 08/19/24 08:00 08/20/24 18:40 Insulin Aspart 300 Units/3 Ml Pen SC Not Given 0800,1200,1700 [facility] Protocol Insulin Glargine 15 units 08/20/24 08:30 08/20/24 08:46 Insulin Glargine 300 Units/3 Ml Pen SC 15 units QAM [facility] Administration Nicotine 14 mg 08/18/24 22:46 08/19/24 04:27 Nicotine 14 Mg/24 Hr Patch TD 09/17/24 22:10 14 mg DAILY PRN PRN Administration Ondansetron HCl 4 mg 08/19/24 02:08 08/19/24 18:24 Ondansetron 4 Mg/2 Ml Vial IVP 4 mg Q4H PRN PRN Administration Pantoprazole Sodium 40 mg 08/19/24 08:30 08/21/24 07:45 Pantoprazole 40 Mg Vial IVP 40 mg DAILY [facility] Administration Ropinirole HCl 2 mg 08/21/24 08:30 08/21/24 07:48 Ropinirole 1 Mg Tab PO 2 mg DAILY SONIA Administration Rosuvastatin Calcium 40 mg 08/21/24 08:30 08/21/24 07:48 Rosuvastatin 20 Mg Tab PO 40 mg DAILY SONIA Administration Sodium Chloride 0 ml 08/20/24 01:25 08/21/24 07:49 Normal Saline Flush 10 Ml Syr IVP 10 ml PRN PRN Administration Tiotropium [place] 2 puff 08/19/24 08:30 08/20/24 08:19 Tiotropium [place]-Respimat 10 Puff Inh IH 2 puffs DAILY SONIA Administration IV IV Catheter Type [Right Hand] Saline Lock IV Catheter Type [Right Saline Lock Antecubital] IV Catheter Gauge [Right Hand] 20 IV Catheter Gauge [Right 18 Antecubital] Diagnostics 08/21/24 08/18/24 Range/Units 06:55 16:05 Sodium 142 (136-145) mmol/L Potassium 4.5 (3.5-5.1) mmol/L Chloride 110 H (98-107) mmol/L Carbon Dioxide 29.4 (21.0-32.0) mmol/L Anion Gap 2.6 L (3-11) mmol/L BUN 22 H (7-18) mg/dL Creatinine 1.5 H (0.70-1.30) mg/dL Est GFR (CKD-EPI 2020) 49.16 (mL/min/1.73m2) Glucose 110 H (74-106) mg/dL Calcium 9.1 (8.5-10.1) mg/dL Magnesium 2.1 (1.8-2.4) mg/dL Path Cons Comment SEE COMMENT [id number] Documentation Fingerstick Glucose Start: 08/18/24 22:49 Freq: Status: Complete Protocol: Activity Type Activity Date Activity User E-sign Co-sign Detail Recorded Client Recorded Date Recorded By Document 08/18/24 22:47 BKG DAEMON(5) [id number] 08/18/24 22:49 BKG DAEMON(6) Fingerstick Glucose Start: 08/19/24 07:03 Freq: .Q6H Status: Active Protocol: Activity Type Activity Date Activity User E-sign Co-sign Detail Recorded Client Recorded Date Recorded By Document 08/21/24 06:38 BKG DAEMON(7) NVT-BG05 08/21/24 06:40 BKG DAEMON(8) Intake and Output - 24 Hour Total 08/18/24 14:46 thru 08/21/24 03:25 Intake Total 6684.583 Output Total 3470 Balance 3214.583 Weight 101.4 kg Intake: IV 6384.583 Oral 300 Output: Urine 3350 Stool 70 Estimated Blood Loss 50 Other: Urine Color Yellow Urine Appearance Clear Urine Odor None Stool Occult Blood Positive Stool Size Small Stool Characteristics Bloody Urinary Catheter Urinary Catheter Date of 08/18/24 Insertion [Urethral ([place])] Time of insertion [Urethral ( 20:00 [place])] Falls Risk Assessment History of Falls No History 08/19/24 04:18 Contributing Factors Impairments 08/19/24 04:18 Ambulatory Aids Uses ambulatory device 08/19/24 04:18 Tubes/Lines W/no contributing factors 08/19/24 04:18 Gait Evaluation No gait disturbance 08/19/24 04:18 Cognition No cognitive impairment 08/19/24 04:18 Fall Total Score 28 08/19/24 04:18 Level of Risk Moderate Risk 08/19/24 04:18 Problems (Last Updated 08/19/24 @ 10:16 by Kraig Rutherford) Colid ostomy in place (Chronic) DVT prophylaxis (Acute) H2,ypomagnesemia (Acute) History of coronary artery disease (Acute) KEIKO (acute kidney injury) (Acute) Hyperkalemia (Acute) Perforation of sigmoid colon due to diverticulitis (Acute) v v v v v v v v v Sending and/or Receiving Nurses: Please use comment section below to note any information pertinent to the patient hand-off not included above. Information / Comments: pt is post op day 2, s/p perforation of sigmoid colon. He had an exploratory lap & colostomy placement. Report received from: TOMER Araujo
[2024-08-21] MEDS: Insulin Glargine 300 UNITS/3 ML PEN 15 UNITS SC (08:05)
[2024-08-21] MEDS: Tiotropium Bromide-Respimat 10 PUFF INH 2 PUFF IH (08:40)
[2024-08-21] MEDS: Ondansetron 4 MG/2 ML VIAL IVP (08:59)
--- NOTE | 2024-08-21 10:26 | PGE_ITS ---
Date of Service Date of service: 08/21/24 Time of Service: 10:26 Assessment and Plan Assessment and plan (1) History of coronary artery disease: Status: Acute (2) Perforation of sigmoid colon due to diverticulitis: Status: Acute Assessment and plan: POD#3 Antibiotics Zosyn. Patient did have a pacemaker placed 10 days ago. Blood cultures were not done PT. Discussed with patient's importance of walking. Soft diet Continue to work with patient on colostomy teaching and training. I just did discuss with the patient that depending on what he eats and level of activity will and fluids output from his ostomy. Pulmonary toilet Lovenox Continued most home meds Patient will need to follow-up with his PCP upon discharge. They can arrange postop surgical care and ostomy management. Probably plan discharge on Friday so he can obtain supplies from the [facility]. (3) Colostomy in place: Status: Chronic Assessment and plan: [facility] will cover home supplies and home nursing (4) KEIKO (acute kidney injury): Status: Acute Assessment and plan: This appears to be his baseline (5) Hyperkalemia: Status: Acute Assessment and plan: Resolved (6) Hypomagnesemia: Status: Acute (7) History of congestive heart failure: (8) Hypercholesteremia: (9) Diabetes: (10) GERD (gastroesophageal reflux disease): (11) Tobacco abuse: Subjective Subjective Interval history since last seen: Patient is seen and examined: they are doing well. THey have : no headaches. No CP or SOB. no productive cough. no dysuria. no leg pain or swelling. He is tolerating a regular diet. He has had smears of stool from his ostomy. He has not been up walking. Exam Narrative Exam Narrative: PHYSICAL EXAM GENERAL APPEARANCE: Alert, healthy appearance, oriented, x 3,? in no acute distress HYDRATION: Well hydrated HEAD, EYES, EARS, NECK, THROAT: Head is normocephalic, pupils equal, round, reactive to light and accommodation, ocular movement intact, sclera clear and no jaundice. ?Dentition -poor. No thrush LUNGS: normal respiration/normal chest excursion. ?Clear to auscultation bilaterally. ?No wheeze. ?HEART: Regular rate and rhythm. no murmurs EXTREMITY: No edema or cyanosis.? no leg pain, redness, swelling.? ABDOMEN: Incision is clean dry and intact. Stoma is slightly dusky but healthy. It is starting to produce output Objective Last Vital Signs Temp 36.5 C 08/21/24 07:44 Pulse 66 08/21/24 07:44 Resp 20 08/21/24 07:44 BP 95/70 L 08/21/24 07:44 Pulse Ox 93 08/21/24 08:49 Laboratory Results - last 24 hr 08/18/24 08/21/24 16:05 06:55 Sodium 142 Potassium 4.5 Chloride 110 H Carbon Dioxide 29.4 Anion Gap 2.6 L BUN 22 H Creatinine 1.5 H Est GFR (CKD-EPI 2020) 49.16 Glucose 110 H Calcium 9.1 Magnesium 2.1 Path Cons Comment SEE COMMENT Time Spent with Patient Time Spent with Patient: 25-34 minutes Time was spent: preparing to see the patient(eg.review tests), obtaining and/or reviewing separately otained hiistory, ordering medications,tests, procedures, referring, communicating with other health health care facility administrator, indepentently interpreting results, counseling the patient, care coordination and other
--- NOTE | 2024-08-21 13:33 | PTTR_ITS ---
PT Notes Visit Reasons: perforated sigmoid s/p [facility] Inpatient Physical Therapy Treatment Note Date: 08/21/2024 Precautions: Pacemaker precautions LUE (no flexion >90*, no lifting), sling on R for comfort. Patient Profile/Admitting Diagnosis: Subjective: Pleasant and cooperative. Ella present in room when PT came in. Complained of discomfort in surgical incision with coughing. happy that he could use pillow to splint area when he coughs. Objective: General Observation: Resting in bed, with telemetry. Uses personal hearing amplifier device. Mental Status: A&Ox3. Pain: As above Bed Mobility/Transfers: supine-sit: independent sit-stand: supervision stand-sit: supervision Gait: 350 feet while pushing IV pole, stand by assist only. No SOB. No LOB Stairs: Up and down 6 x 4-inch steps and2 x 6-inch steps while holding onto B rails for support with no increase in painreport, alternating/step through pattern, stand by assist only. Balance: Static Sitting: Good Dynamic Sitting: good Static Standing: good Dynamic Standing: good Assessment: 2-3 episodes of coughing during session due to increased mobilization with instcrution to use pillow to splint abdominal area for decreased discomfort. No physiical assistance needed throughput the walk. Plan of Care/Treatment Plan: 1-2x/day, 7 days/week x 1 week. Plan of care has been reviewed with the HEEL SEAM RUBBER providing the service under Physical Therapy direction. Initiate Physical Therapy intervention for strengthening, bed mobility, transfers, gait, stairs, balance training, use of assistive device. DISCHARGE RECOMMENDATIONS: Home with no services once medically stable TREATMENT CODE/TIME: 46620 x 20 minutes for 1 unit (13:33-13:53).
[2024-08-21 14:07] LABS: Lab Add On Test DONE
[2024-08-21] MEDS: Nystatin POWDER 60 GM JAR TP (14:26)
[2024-08-21 14:54] LABS: C-Reactive Protein 11.48 mg/dL (<or=0.5); Ferritin 281 ng/mL (26-388); Folate 8.9 ng/mL (8.6-20.0); Vitamin B12 443 pg/mL (193-986)
--- NOTE | 2024-08-21 18:21 | PGE_ITS ---
Date of Service Date of service: 08/21/24 Time of Service: 17:00 Assessment and Plan Assessment and plan (1) Perforation of sigmoid colon due to diverticulitis: Status: Acute Assessment and plan: POD #3 s/p sigmoid colectomy and colostomy without complication Management including pain and diet advancement per surgery, seems to be recovering well. (2) Hyperkalemia: Assessment and plan: In setting of KEIKO. Treated with fluids with D5 and basal and prn insulin. Now normalized. Fluids stopped. (3) KEIKO (acute kidney injury): Assessment and plan: C/w pre-renal from acute illness. Improving, making good urine output. (4) History of coronary artery disease: Status: Acute Assessment and plan: Stable CAD, no symptoms. Continue statin, resumed ASA 81mg 08/21 (5) Hypertension: Assessment and plan: BP increasing, resume home meds (6) Tobacco abuse: Assessment and plan: quit in past year, has used gum, written prn. Also COPD diagnosis in the record but doesn't use inhalers. No evidence this is active. (7) Diabetes: Assessment and plan: can resume metformin this afternoon. (8) Hypomagnesemia: Assessment and plan: s/p 2g IV, improved (9) GERD (gastroesophageal reflux disease): Assessment and plan: on chornic PPI (10) Restless leg syndrome: Assessment and plan: resumed ropinirole. Check the iron before discharge to see if he heeds this supplemented as low iron (ferritin <50) will make RLS worse. (11) DVT prophylaxis: Status: Acute Assessment and plan: enoxaparin per surgery, also SCDs Subjective Subjective Patient reports: no new complaints; denies nausea, vomiting, shortness of breath or fever Interval history since last seen: eating a little more today. Walking with PT. Still no stool. Pain is improving. Exam Narrative Exam Narrative: GEN: Alert and oriented x 4, pleasant and cooperative, gives linear history. No acute distress at rest. LUNGS: CTAB with normal effort CV: RRR with 1/6 murmur at LUSB, no gallops, or rubs. ABD: active bowel sounds noted on left more than right. soft, mildly diffusely tender, nondistended. Colostomy pink, small blood around wound, a little gas but no stool in bag. EXT: no cyanosis, clubbing, or edema Objective Last Vital Signs Temp 36.8 C 08/21/24 15:35 Pulse 61 08/21/24 15:35 Resp 20 08/21/24 15:35 BP 133/81 08/21/24 15:35 Pulse Ox 94 08/21/24 15:35 Laboratory Results - last 24 hr 08/21/24 06:55 Sodium 142 Potassium 4.5 Chloride 110 H Carbon Dioxide 29.4 Anion Gap 2.6 L BUN 22 H Creatinine 1.5 H Est GFR (CKD-EPI 2020) 49.16 Glucose 110 H Calcium 9.1 Magnesium 2.1 Ferritin 281 C-Reactive Protein 11.48 H Vitamin B12 443 Folate 8.9 Add-On Test Request DONE Time Spent with Patient Time Spent with Patient: 35-49 minutes Time was spent: preparing to see the patient(eg.review tests), obtaining and/or reviewing separately otained hiistory, ordering medications,tests, procedures, referring, communicating with other health medicare interviewer, indepentently interpreting results, counseling the patient and care coordination
[2024-08-21] MEDS: metFORMIN C.R. 500 MG TABCR PO (20:41)
[2024-08-22] VITALS (7 sets, daily range): BP systolic 123–148; BP diastolic 64–88; PULSE 60–64; RESP 16–18; TEMP 36.6–37.8; O2SAT 92–95
[2024-08-22] MEDS: PIPERACILLIN/TAZO 4.5 GM in Normal Saline 100 ML IVPB ×3 (02:50→17:21)
[2024-08-22] MEDS: Acetaminophen 500 MG TAB 1000 MG PO ×3 (02:51→21:41)
[2024-08-22] MEDS: HYDROmorphone 2 MG/ML SYR 1 MG IVP (03:26)
[2024-08-22] MEDS: Pantoprazole 40 MG VIAL IVP (09:30)
--- NOTE | 2024-08-22 09:32 | PT.INTREAT ---
PT Notes Visit Reasons: perforated sigmoid s/p [facility] Inpatient Physical Therapy Treatment Note Date: 08/22/2024 Precautions: Pacemaker precautions LUE (no flexion >90*, no lifting), sling on R for comfort. Hard of hearing, uses personal hearing amplifier device. Subjective: Pleasant and cooperative. Nurse Motta with patient for medication intake. Per Nurse Motta, patient does not feel good and went back to bed from chair to rest. Patient complained of increased dizziness and fatigue after walking about 50 feet with walker. Objective: General Observation: Resting in bed, with telemetry. Uses personal hearing amplifier device. Mental Status: A&Ox3. Pain: None reported Bed Mobility/Transfers: supine-sit: independent sit-stand: stand by assist stand-sit: stand by assist Gait: 50 feet + 50 feet while pushing IV pole, stand by assist only. Wheelchair follow given. Patient reported incrased weakness, fatigue, and dizziness. He also appeared shaky on the chair while resting. Stairs: Deferred Balance: Static Sitting: Good Dynamic Sitting: Good Static Standing: Good Dynamic Standing: Food Assessment: Reported fatigue, increased weakness, and dizziness during first 50 feet of walk. Patient was shaky when he was asked to sit down to rest. Deferred any further treatment after walking back to room. Patient was assisted back to bed so he could rest. Nurse Motta was updated about patient's adverse response to the short walk. Plan of Care/Treatment Plan: 1-2x/day, 7 days/week x 1 week. Plan of care has been reviewed with the ROOM WORKER providing the service under Physical Therapy direction. Initiate Physical Therapy intervention for strengthening, bed mobility, transfers, gait, stairs, balance training, use of assistive device. DISCHARGE RECOMMENDATIONS: PT vs No services based on progress towards goals for this episdeo of care TREATMENT CODE/TIME: 43274 x 26 minutes for 2 units (9:32-9:58).
--- NOTE | 2024-08-22 09:35 | W.PM.PROGNOT ---
Date of Service Date of service: 08/22/24 Time of Service: 09:35 Assessment and Plan Assessment and plan (1) History of coronary artery disease: Status: Acute (2) Perforation of sigmoid colon due to diverticulitis: Status: Acute Assessment and plan: POPD#4 ileus vs mechanical obstruction vs abscess formation (high risk). no drain if no improvement in am consider CT abx- zosyn encourage ambulation and pulm toilet labs in am pacemaker is < 2 wks old. no blood cultures done (3) Colostomy in place: Status: Chronic (4) Hypertension: (5) History of congestive heart failure: (6) Hypercholesteremia: (7) Diabetes: (8) GERD (gastroesophageal reflux disease): (9) Tobacco abuse: (10) Pacemaker: Status: Acute Subjective Subjective Interval history since last seen: Patient is seen and examined: they are doing well. THey have : no headaches. No CP or SOB. no productive cough. no dysuria. no leg pain or swelling. Pt c/o nausea. No output from ostomy. Exam Narrative Exam Narrative: PHYSICAL EXAM GENERAL APPEARANCE: Alert, healthy appearance, oriented, x 3,? in no acute distress HYDRATION: Well hydrated HEAD, EYES, EARS, NECK, THROAT: Head is normocephalic, pupils equal, round, reactive to light and accommodation, ocular movement intact, sclera clear and no jaundice. ?Dentition intact. LUNGS: normal respiration/normal chest excursion. ?Clear to auscultation bilaterally. ?No wheeze. ?HEART: Regular rate and rhythm. no murmurs EXTREMITY: No edema or cyanosis.? no leg pain, redness, swelling.? ABDOMEN: Incision is clean with no bleeding. Ostomy is pink. He is not really had any significant output from this yet. Bowel sounds are high-pitched and tinkling indicative of obstruction Objective Last Vital Signs Temp 37.8 C H 08/22/24 07:55 Pulse 60 08/22/24 07:55 Resp 16 08/22/24 07:55 BP 137/88 08/22/24 07:55 Pulse Ox 94 08/22/24 07:55 Laboratory Results - last 24 hr 08/21/24 06:55 Ferritin 281 C-Reactive Protein 11.48 H Vitamin B12 443 Folate 8.9 Add-On Test Request DONE Time Spent with Patient Time Spent with Patient: 25-34 minutes Time was spent: preparing to see the patient(eg.review tests), obtaining and/or reviewing separately otained hiistory, ordering medications,tests, procedures, referring, communicating with other health critical care nurse practitioner, indepentently interpreting results, counseling the patient, care coordination and other
[2024-08-22] MEDS: amLODIPine 5 MG TAB PO (09:37)
[2024-08-22] MEDS: rOPINIRole 1 MG TAB 2 MG PO (09:37)
[2024-08-22] MEDS: Rosuvastatin 20 MG TAB 40 MG PO (09:38)
[2024-08-22] MEDS: Furosemide 20 MG TAB PO (09:38)
[2024-08-22] MEDS: metFORMIN C.R. 500 MG TABCR PO ×2 (09:38→21:42)
[2024-08-22] MEDS: Aspirin E.C. 81 MG TABEC PO (09:38)
[2024-08-22] MEDS: Normal Saline Flush 10 ML SYR IVP ×4 (09:39→21:43)
[2024-08-22] MEDS: Tiotropium Bromide-Respimat 10 PUFF INH 2 PUFF IH (10:51)
[2024-08-22] MEDS: Nystatin POWDER 60 GM JAR TP ×2 (10:52→17:36)
[2024-08-22] MEDS: Ondansetron 4 MG/2 ML VIAL IVP (11:04)
[2024-08-22 11:05] LABS: HCT 37.4 % (40.0-50.0); HGB 12.1 g/dL (13.5-17.5); MCHC 32.4 % (32.0-36.0); MCV 99 fL (80-95); Platelet Count 151 10^3/uL (130-400); RBC 3.78 10^6/uL (4.36-5.78); RDW 12.4 % (11.8-14.1); RDW-SD 45.1 fL; WBC 4.47 10^3/uL (4.4-10.8)
[2024-08-22 11:15] LABS: Anion Gap 7.6 mmol/L (3-11); BUN 16 mg/dL (7-18); CO2 25.4 mmol/L (21.0-32.0); CREATININE 1.3 mg/dL (0.70-1.30); Chloride 106 mmol/L (98-107); Estimated GFR 58.37 (mL/min/1.73m2); Glucose 132 mg/dL (74-106); Potassium 4.4 mmol/L (3.5-5.1); Sodium 139 mmol/L (136-145)
[2024-08-22 11:23] LABS: Calcium 9.6 mg/dL (8.5-10.1)
--- NOTE | 2024-08-22 16:34 | PGE_ITS ---
Date of Service Date of service: 08/22/24 Time of Service: 16:34 Assessment and Plan Assessment and plan (1) Perforation of sigmoid colon due to diverticulitis: Status: Acute Assessment and plan: POD #3 s/p sigmoid colectomy and colostomy without complication Management including pain and diet advancement per surgery. Nausea this morning, plan to monitor and consider CT if worse per surgery. Appears to be getting better now, some stool output. continues on pip/tazo (2) Hyperkalemia: Assessment and plan: In setting of KEIKO. Treated with fluids with D5 and basal and prn insulin. Normalized. Fluids stopped. (3) KEIKO (acute kidney injury): Assessment and plan: C/w pre-renal from acute illness. Improving, making adequate urine output, creatinine normalized. (4) History of coronary artery disease: Status: Acute Assessment and plan: Stable CAD, no symptoms. Continue statin, resumed ASA 81mg 08/21 (5) Hypertension: Assessment and plan: Resumed home meds, BP controlled (6) Tobacco abuse: Assessment and plan: quit in past year, has used gum, written prn. Also COPD diagnosis in the record but doesn't use inhalers. Still no evidence this is active. (7) Diabetes: Assessment and plan: Resumed metformin this afternoon sugars well controlled. (8) Hypomagnesemia: Assessment and plan: s/p 2g IV, improved (9) GERD (gastroesophageal reflux disease): Assessment and plan: on chornic PPI (10) Restless leg syndrome: Assessment and plan: resumed ropinirole. Check the iron before discharge to see if he heeds this supplemented as low iron (ferritin <50) will make RLS worse. (11) DVT prophylaxis: Status: Acute Assessment and plan: enoxaparin per surgery, also SCDs. Platelets better today so can continue. Subjective Subjective Patient reports: denies shortness of breath or fever Interval history since last seen: [place] worse this morning with worse pain and nausea after breakfast. Feelign a little better again now. Nibbling on Cheerios. No longer nauseous. some cough. Exam Narrative Exam Narrative: GEN: Alert and oriented x 4, pleasant and cooperative, gives linear history. No acute distress at rest. LUNGS: CTAB with normal effort CV: RRR with 1/6 murmur at LUSB, no gallops, or rubs. ABD: active bowel sounds. soft, mildly diffusely tender, nondistended. Colostomy pink, small blood around wound, a little gas and now some stool around stoma EXT: no cyanosis, clubbing, or edema Objective Last Vital Signs Temp 36.6 C 08/22/24 15:43 Pulse 60 08/22/24 15:43 Resp 18 08/22/24 15:43 BP 123/64 08/22/24 15:43 Pulse Ox 95 08/22/24 15:43 Laboratory Results - last 24 hr 08/22/24 10:50 WBC 4.47 RBC 3.78 L Hgb 12.1 L Hct 37.4 L MCV 99 H D MCH 32.0 MCHC 32.4 RDW 12.4 Plt Count 151 MPV 10.0 Sodium 139 Potassium 4.4 Chloride 106 Carbon Dioxide 25.4 Anion Gap 7.6 BUN 16 Creatinine 1.3 Est GFR (CKD-EPI 2020) 58.37 Glucose 132 H Calcium 9.6 Time Spent with Patient Time Spent with Patient: 35-49 minutes Time was spent: preparing to see the patient(eg.review tests), obtaining and/or reviewing separately otained hiistory, ordering medications,tests, procedures, referring, communicating with other health child care specialist, indepentently interpreting results, counseling the patient and care coordination
[2024-08-22] MEDS: Enoxaparin 40 MG/0.4 ML SYR SC (17:20)
[2024-08-22] MEDS: Insulin Aspart 300 UNITS/3 ML PEN SC (17:35)
[2024-08-23] MEDS: PIPERACILLIN/TAZO 4.5 GM in Normal Saline 100 ML IVPB ×4 (00:04→17:00)
[2024-08-23 04:02] VITALS: BP 128/78; PULSE 60; RESP 18; TEMP 36.9; O2SAT 95
[2024-08-23] MEDS: Acetaminophen 500 MG TAB 1000 MG PO ×3 (04:38→19:36)
[2024-08-23] MEDS: Normal Saline Flush 10 ML SYR IVP ×2 (05:40→09:26)
[2024-08-23 07:08] LABS: Abs Immature Grans 0.03 10^3/uL (0.0-0.06); Absolute Basophil Count 0.03 10^3/uL (0.0-0.2); Absolute Eosinophil Count 0.16 10^3/uL (0.0-0.7); Absolute Lymphocyte Count 0.91 10^3/uL (1.2-3.4); Absolute Monocyte Count 0.67 10^3/uL (0.1-0.8); Absolute Neutrophil Count 2.57 10^3/uL (1.2-6.7); Basophils % 0.7 %; Eosinophils % 3.7 %; HCT 33.8 % (40.0-50.0); HGB 11.5 g/dL (13.5-17.5); Immature Grans % 0.7 %; Lymphocytes % 20.8 %; MCH 31.9 pg (27.0-33.0); MCV 94 fL (80-95); MPV 10.3 fL (8.0-11.0); Monocytes % 15.3 %; Neutrophils % 58.8 %; Platelet Count 154 10^3/uL (130-400); RDW 12.4 % (11.8-14.1); RDW-SD 42.6 fL; WBC 4.37 10^3/uL (4.4-10.8)
[2024-08-23 07:24] VITALS: BP 139/79; PULSE 61; RESP 18; TEMP 36.4; O2SAT 95
[2024-08-23 07:26] LABS: BUN 13 mg/dL (7-18); C-Reactive Protein 9.43 mg/dL (<or=0.5); CREATININE 1.3 mg/dL (0.70-1.30); Calcium 9.2 mg/dL (8.5-10.1); Chloride 105 mmol/L (98-107); Estimated GFR 58.37 (mL/min/1.73m2); Glucose 156 mg/dL (74-106); Magnesium 1.8 mg/dL (1.8-2.4); Sodium 141 mmol/L (136-145)
--- NOTE | 2024-08-23 08:48 | CMPROGNOTE_ITS ---
Date of service: 08/23/24 Time of Service: 08:48 Care Management Progress Note Progress Note Text Progress Note Text: Mani was lying in bed when CM met with him today. He looked a bit tired and flushed. He was very pleasant, but not the eveline full of jokes surrounded by friends and family that CM had seen last week. Mani stated he was not feeling great, but has finally started producing some stool. He is being maintained on a clear liquid diet at this time. Mani was planning to work with his RN today for some teaching regarding ostomy care. Mani asked CM to call his for him today. She did not visit yesterday due to being ill. This CM did call Ella, who sounded like she had a nasty cold. She was very appreciative of the call, and was happy to know that Mani stated he was making stool. MURALI has spoken to the [facility] x 2 today, to try to determine how to best order Mani's ostomy supplies. It has been a bit of a round about. MURALI has spoken with Dixie at [facility] ([phone]) who encouraged a call to [facility] [phone]. Blanca at [facility] asked CM to fax H&P and clinicals to [phone], which was done. Blanca took my number and will have someone reach back out. Discharge Potential Discharge Needs: PCP F/U Appt and Surgical F/U Appt Anticipated Barriers to Discharge: Medical Status (Mani had some increased nausea with advanced diet and has little output from ostomy) Patient/Family Education Needs: Review discharge instructions, discuss Ask Me Three Transportation: Private vehicle Plan: Anticipate that Mani will be discharged home when medically ready. He will f/u with his PCP at the [facility], and with the surgeon. He will have HH RN while he adjusts to his ostomy, and possibly new PT. He will f/u with his plan of care and transport home with his . CM will continue to follow and update the plan as needed. Social Determinants of Health Screening Social Determinants of Health last assessed: 08/23/24 Will the Patient Participate in the Screening?: Yes Do you worry about having a steady place to live?: no Problems where you live: no known problems In the past 12 months, have you had to go without electric, gas, oil or water in your home?: no Have you or anyone in your house had to go without enough food to eat?: no Has lack of transportation kept you from medical appointments or from doing things needed for daily living?: no Has anyone in your life made you feel unsafe or unsupported?: no How hard is it for you to pay for the very basics like food, housing, medical care, and heating? Would you say it is:: Not hard at all Do you want help finding or keeping work or a job?: I do not need or want help If for any reason you need help with day-to-day activities such as bathing, preparing meals, shopping, managing finances, etc., do you get the help you need?: I get all the help I need How often do you feel lonely or isolated from those around you?: Never Do you speak a language other than [place]ian at home?: No Does the patient want assistance with any of the above?: No
--- NOTE | 2024-08-23 08:56 | PTTR_ITS ---
PT Notes Visit Reasons: perforated sigmoid s/p erika Date: 08/23/2024 PRECAUTIONS: Pacemaker precautions LUE (no flexion >90*, no lifting), sling on R for comfort. Hard of hearing, uses personal hearing amplifier device. SUBJECTIVE: Pt in bed when approached for therapy, pt agreeable to participating with therapy session, expressed he would like his colostomuy bag to be emptied first since it was full, Nurse Margarita was able to clear the bag so pt could start with therapy session. Pt seen again in the afternoon after lunch, pt looking forward to testing his tolerance with the building staircase. OBJECTIVE: ?Colostomy bag, IV port on right antecubital, [place] (helps when pt is using hearing amplifier)? PAIN: denies VITALS: Closely monitored by nursing Therapeutic Activities 05715: Direct one-on-one instruction in dynamic activities to improve functional performance. ?? BED MOBILITY/TRANSFERS? Rolling L/R: independent Supine-sit: ? independent? Sit-supine: ?inedependent ? Sit-stand: ?independent ? Stand-sit: ?independent? Bed-Chair:? independent? Chair-bed: independent Provided skilled cues and instruction on performance and technique throughout. Gait Training 16378: Direct one-on-one instruction and skilled instruction in: Employing an assistive device Movement sequencing Turning and movement with proper form Provided verbal cues for equipment management and technique Provided instruction in gait pattern Patient education regarding pacing and breathing techniques to maximize activity tolerance? GAIT? Assistive Device: ??FWW ? Weight bearing: FWB Assist: ?supervision ? Distance:?? ?300'x2 seated rest break in between distance (am), ?300'x2 seated rest break in between distance (pm), ? Deviation: ? ?Unremarkable ? STAIRS:? ?6x 4, 4 x6 up and down with bilateral handrail step over step pattern, Supervision ?, Building staircase 12 steps step over step 1 handrail, SBA ? ASSESSMENT:?Pt doing better today, pt able to complete big loop with stairs 2x with rest break in between reps. am/pm PLAN: Continue with balance training, global strengthening and general conditioning for improved safety, mobility and activity tolerance until pt is ready for DC. TREATMENT CODE/TIME: [id number], [id number] 25mins (8:35-9:00am) [id number], [id number] 25mins (1:20-1:45pm) DC Recommendation: HHPT vs. Short term SNF
[2024-08-23] MEDS: Rosuvastatin 20 MG TAB 40 MG PO (09:22)
[2024-08-23] MEDS: Insulin Aspart 300 UNITS/3 ML PEN SC (09:22)
[2024-08-23] MEDS: metFORMIN C.R. 500 MG TABCR PO ×2 (09:22→17:01)
[2024-08-23] MEDS: Furosemide 20 MG TAB PO (09:22)
[2024-08-23] MEDS: Aspirin E.C. 81 MG TABEC PO (09:22)
[2024-08-23] MEDS: rOPINIRole 1 MG TAB 2 MG PO (09:22)
[2024-08-23] MEDS: amLODIPine 5 MG TAB PO (09:22)
[2024-08-23] MEDS: Pantoprazole 40 MG VIAL IVP (09:23)
[2024-08-23] MEDS: Nystatin POWDER 60 GM JAR TP ×2 (09:23→19:38)
[2024-08-23] MEDS: Tiotropium Bromide-Respimat 10 PUFF INH 2 PUFF IH (09:40)
[2024-08-23 11:50] VITALS: BP 144/82; PULSE 63; RESP 20; TEMP 36.4; O2SAT 93
[2024-08-23 15:23] VITALS: BP 119/76; PULSE 62; RESP 18; TEMP 36; O2SAT 97
[2024-08-23] MEDS: Enoxaparin 40 MG/0.4 ML SYR SC (17:02)
--- NOTE | 2024-08-23 17:25 | PGE_ITS ---
Date of Service Date of service: 08/23/24 Time of Service: 17:25 Assessment and Plan Assessment and plan (1) Perforation of sigmoid colon due to diverticulitis: Status: Acute Assessment and plan: POD #3 s/p sigmoid colectomy and colostomy without complication Management including pain and diet advancement per surgery. Nausea this morning, plan to monitor and consider CT if worse per surgery. Appears to be getting better now, some stool output. continues on pip/tazo 08.23.24 Diet advanced by GS, will monitor (2) Hyperkalemia: Assessment and plan: In setting of KEIKO. Treated with fluids with D5 and basal and prn insulin. Normalized. Fluids stopped. 08.23.24 resolved (3) KEIKO (acute kidney injury): Assessment and plan: C/w pre-renal from acute illness. Improving, making adequate urine output, creatinine normalized. (4) History of coronary artery disease: Status: Acute Assessment and plan: Stable CAD, no symptoms. Continue statin, resumed ASA 81mg 08/21 (5) Hypertension: Assessment and plan: Resumed home meds, BP controlled (6) Tobacco abuse: Assessment and plan: quit in past year, has used gum, written prn. Also COPD diagnosis in the record but doesn't use inhalers. Still no evidence this is active. (7) Diabetes: Assessment and plan: Resumed metformin this afternoon sugars well controlled. (8) Hypomagnesemia: Assessment and plan: s/p 2g IV, improved (9) GERD (gastroesophageal reflux disease): Assessment and plan: on chornic PPI (10) Restless leg syndrome: Assessment and plan: resumed ropinirole. Check the iron before discharge to see if he heeds this supplemented as low iron (ferritin <50) will make RLS worse. (11) DVT prophylaxis: Status: Acute Assessment and plan: enoxaparin per surgery, also SCDs. Platelets better today so can continue. Subjective Subjective Interval history since last seen: Pt seen and examined in his room. PT resting comfortably Exam Narrative Exam Narrative: heent-ncat neck-no jvd pulm-no distress ext-no cce b Objective Last Vital Signs Temp 36.0 C L 08/23/24 15:23 Pulse 62 08/23/24 15:23 Resp 18 08/23/24 15:23 BP 119/76 08/23/24 15:23 Pulse Ox 97 08/23/24 15:23 Laboratory Results - last 24 hr 08/23/24 06:45 WBC 4.37 L RBC 3.60 L Hgb 11.5 L Hct 33.8 L MCV 94 D MCH 31.9 MCHC 34.0 RDW 12.4 Plt Count 154 MPV 10.3 Immature Gran % 0.7 Neutrophils % 58.8 Lymphocytes % 20.8 Monocytes % 15.3 Eosinophils % 3.7 Basophils % 0.7 Nucleated RBC % 0.0 Absolute Neutrophils 2.57 Absolute Lymphocytes 0.91 L Absolute Monocytes 0.67 Absolute Eosinophils 0.16 Absolute Basophils 0.03 Sodium 141 Potassium 4.0 Chloride 105 Carbon Dioxide 28.0 Anion Gap 8.0 BUN 13 Creatinine 1.3 Est GFR (CKD-EPI 2020) 58.37 Glucose 156 H Calcium 9.2 Magnesium 1.8 C-Reactive Protein 9.43 H Time Spent with Patient Time Spent with Patient: 35-49 minutes Time was spent: preparing to see the patient(eg.review tests), obtaining and/or reviewing separately otained hiistory, ordering medications,tests, procedures, referring, communicating with other health urgent care technician, indepentently interpreting results, counseling the patient and care coordination
--- NOTE | 2024-08-23 17:48 | W.PM.PROGNOT ---
Date of Service Date of service: 08/23/24 Time of Service: 17:48 Assessment and Plan Assessment and plan (1) Perforation of sigmoid colon due to diverticulitis: Status: Acute Assessment and plan: There is making a nice recovery for perforated sigmoid diverticulitis. I will advance his diet tonight, and switch him over from intravenous to oral antibiotics. Assuming he is able to tolerate a diet, I am optimistic will be medically suitable for discharge tomorrow. However, he still needs to practice with some colostomy training, and we need to make sure that we have stoma supplies in order before his discharge. Subjective Subjective Interval history since last seen: Mani says he is feeling well. He has been up and walking around, and his pain has been well-controlled with just Tylenol. He has been able to tolerate liquids without any nausea or vomiting, and he is eager to try some more solid food. Exam GI Other: His abdomen is soft, nondistended. The stoma is patent and producing liquid and semisolid stool. Midline incision is clean, and there is no erythema or fluctuance. Objective Last Vital Signs Temp 96.8 F L 08/23/24 15:23 Pulse 62 08/23/24 15:23 Resp 18 08/23/24 15:23 BP 119/76 08/23/24 15:23 Pulse Ox 97 08/23/24 15:23 Laboratory Results - last 24 hr 08/23/24 06:45 WBC 4.37 L RBC 3.60 L Hgb 11.5 L Hct 33.8 L MCV 94 D MCH 31.9 MCHC 34.0 RDW 12.4 Plt Count 154 MPV 10.3 Immature Gran % 0.7 Neutrophils % 58.8 Lymphocytes % 20.8 Monocytes % 15.3 Eosinophils % 3.7 Basophils % 0.7 Nucleated RBC % 0.0 Absolute Neutrophils 2.57 Absolute Lymphocytes 0.91 L Absolute Monocytes 0.67 Absolute Eosinophils 0.16 Absolute Basophils 0.03 Sodium 141 Potassium 4.0 Chloride 105 Carbon Dioxide 28.0 Anion Gap 8.0 BUN 13 Creatinine 1.3 Est GFR (CKD-EPI 2020) 58.37 Glucose 156 H Calcium 9.2 Magnesium 1.8 C-Reactive Protein 9.43 H Time Spent with Patient Time Spent with Patient: 25-34 minutes Time was spent: preparing to see the patient(eg.review tests), indepentently interpreting results and counseling the patient
[2024-08-23 18:15] VITALS: BP 143/68; PULSE 60; RESP 18; TEMP 36.6; O2SAT 97
[2024-08-23 22:35] VITALS: BP 137/72; PULSE 60; RESP 18; TEMP 36.6; O2SAT 93
[2024-08-24 02:41] VITALS: BP 149/73; PULSE 64; RESP 16; TEMP 36.6; O2SAT 93
[2024-08-24] MEDS: Acetaminophen 500 MG TAB 1000 MG PO ×2 (06:06→12:23)
[2024-08-24 07:31] VITALS: BP 125/78; PULSE 60; RESP 16; TEMP 36.3; O2SAT 95
[2024-08-24] MEDS: Tiotropium Bromide-Respimat 10 PUFF INH 2 PUFF IH (07:53)
[2024-08-24] MEDS: rOPINIRole 1 MG TAB 2 MG PO (09:05)
[2024-08-24] MEDS: Amoxicillin 875/Clav. 125 TAB PO (09:07)
[2024-08-24] MEDS: Aspirin E.C. 81 MG TABEC PO (09:07)
[2024-08-24] MEDS: Furosemide 20 MG TAB PO (09:08)
[2024-08-24] MEDS: Omeprazole 20 MG CAPCR PO (09:08)
[2024-08-24] MEDS: Rosuvastatin 20 MG TAB 40 MG PO (09:10)
[2024-08-24] MEDS: amLODIPine 5 MG TAB PO (09:11)
[2024-08-24] MEDS: metFORMIN C.R. 500 MG TABCR PO (09:12)
[2024-08-24] MEDS: Nystatin POWDER 60 GM JAR TP (09:17)
--- NOTE | 2024-08-24 11:40 | DSE_ITS ---
Date of service: 08/24/24 Time of Service: 11:42 DS: Diagnosis Discharge Diagnosis (1) Perforation of sigmoid colon due to diverticulitis: Status: Acute Asessment and Plan: 73-year-old man postop day 6 from exploratory laparotomy and Saldana's end colostomy. He is hemodynamically stable. He is having bowel function. His abdominal exam is benign. His midline wound is healing by secondary intention. He is ready to be discharged. He will be discharged with home nursing wound care/ostomy care and will follow-up in the office in 7-10 days. He has completed 6 days of antibiotics which should be adequate with washout and diversion. Discharge Plan Disposition Patient Disposition: Home W/Home Health Services Condition: Serious Condition: Improving Discharge Details Reason For Visit: perforated sigmoid s/p hartmans Admit Date/Time: 08/18/24 22:22 Admit Provider: Abigail Ryan Attending Provider: Abigail Ryan Primary Care Provider: Andrea Kaiser Hospital Course Hospital Course: 73-year-old man presented with perforated diverticulitis. He was taken to the operating room and an exploratory laparotomy with end colostomy (Saldana's) was performed. In the hospital he was kept on IV antibiotics and monitored closely. He slowly regained bowel function and on postoperative day 5 his abdominal exam was benign, he was having good bowel function tolerating p.o. and he was converted over to oral antibiotics. Wound care instructions were given and ostomy instructions were given. Visiting nursing care was set up for his home health. He was set up to be seen outpatient in the surgery office. Home Meds and New Rx's Prescriptions: No Action amlodipine 5 mg tablet 5 mg PO DAILY ropinirole 2 mg tablet 2 mg PO DAILY omeprazole 20 mg capsule,delayed release(DR/EC) 20 mg PO DAILY rosuvastatin 40 mg tablet 40 mg PO DAILY furosemide 20 mg tablet 20 mg PO DAILY cyanocobalamin (vitamin B-12) [Vitamin B-12] 250 mcg tablet 250 mcg PO DAILY ferrous gluconate 324 mg (38 mg iron) tablet 324 mg PO DAILY Patient Comments: M-W- metformin 500 mg tablet extended release 24 hr 500 mg PO BID naproxen [EC-Naprosyn] 375 mg tablet,delayed release (DR/EC) 375 mg PO BID PRN nicotine (polacrilex) 2 mg gum 2 mg PO Q2H PRN sildenafil 50 mg tablet 50 mg PO ONCE PRN Rx Instructions: administer 30 minutes to 4 hours before activity aspirin [Aspir-Low] 81 mg Tablet,Delayed Release (Dr/Ec) 81 mg PO DAILY Discharge Instructions Instructions: How to Care for Your Ostomy, Adult Additional Instructions: INSTRUCTIONS: Incision: Dry gauze over top of your wound once?daily. It is okay to get it wet and you can shower directly onto the wound as well as the colostomy can get wet too. Put on a new dressing after you shower. Activity: As tolerated. Light duty without any heavy lifting/pulling or pushing for 6-8 weeks. Diet: Regular diet as tolerated. Medications: Resume all of your usual/regular home medications. Follow-up: If you are having any issues or concerns call the surgery office immediately. Otherwise call the office and schedule a follow-up appointment to be seen in 7-10 days. Pain control: Take Tylenol, 1000 mg, every 6 hours on a schedule for the next 3 days. You can use ibuprofen in addition to Tylenol. Avoid narcotics. Overall: Symptoms should not be worsening. If you have any difficulty breathing or you have return of symptoms of brought you to the hospital or your pain is otherwise worsening each day and you should call the doctor's office or come into the hospital to be checked out. Activity:: Activity as Tolerated Equipment/Supplies:: Ostomy supplies Diet:: As Tolerated DS: Summary Time Spent with Patient providing and/or coordinating discharge services: Less than 30 minutes Status at Discharge Functional status at discharge: independent ambulation Overall status at discharge: patient is progressing back to baseline Mental Status: mental status grossly normal Speech and Movement: speech and movement normal Mood: congruent mood Affect: normal affect Quality:SDOH Health Related Social Needs: No Data to Display Exam Narrative Exam Narrative: Gen: Non-toxic, comfortable and interactive Neuro: Alert and oriented x3 Psych: Good mood and affect. Good insight and understanding into condition. Chest: Non-labored breathing, no wheezing, no visible shortness of breath. Heart: Regular Abdomen: Soft, nondistended and nontender. His midline surgical incision is healing by secondary intention. Open gaps between sutures as expected. No erythema. No discharge. No foul odor. Minimal granulation tissue is starting. The colostomy itself is pink, healthy, patent and productive. Psych Mental Status: mental status grossly normal Speech and Movement: speech and movement normal Mood: congruent mood Affect: normal affect DS: Data Vitals/I&O Vitals and I&O: Vital Signs Temperature 97.4 F L 08/24/24 07:31 Temperature Source Tympanic 08/24/24 07:31 Pulse 60 08/24/24 07:31 Pulse 60 08/20/24 21:30 Respiratory Rate 16 08/24/24 07:31 Respiratory Effort Normal 08/19/24 04:18 Respiratory Depth Normal 08/19/24 04:18 Respiratory Pattern Normal 08/19/24 04:18 Blood Pressure 125/78 08/24/24 07:31 Blood Pressure Mean 73 08/20/24 21:01 Blood Pressure Position Supine 08/19/24 04:18 Pulse Oximetry 95 08/24/24 07:31 Oxygen Delivery Method Room Air 08/24/24 07:31 Oxygen Flow Rate 0 08/24/24 07:31 Pain Level 0 08/24/24 06:06 Comment Web ex to kimberly (TOMER) on BP 08/23/24 11:50 Intake & Output 08/23/24 08/23/24 08/24/24 11:59 23:59 11:59 Intake Total 940 / 1140 200 / 1140 120 / 120 Output Total 1400 / 1700 300 / 1700 400 / 400 Balance -460 / -560 -100 / -560 -280 / -280 Intake: IV 200 / 400 200 / 400 Oral 740 / 740 120 / 120 Output: Urine 800 / 800 Stool 600 / 900 300 / 900 400 / 400 Other: Urine Color Yellow Yellow Dark Dana Urine Appearance Clear Clear Comment pt voided x1 Stool Size Small Stool Characteristics Liquid Liquid Liquid Brown Brown PFSH All Active Problems (Updated 08/22/24 @ 12:57 by Yajaira Marsh DO) Pacemaker (Acute) Colostomy in place (Chronic) DVT prophylaxis (Acute) History of coronary artery disease (Acute) Perforation of sigmoid colon due to diverticulitis (Acute) Medical History (Updated 08/22/24 @ 12:57 by Yajaira Marsh DO) Hypomagnesemia Hyperkalemia KEIKO (acute kidney injury) Restless leg syndrome GERD (gastroesophageal reflux disease) History of congestive heart failure Hypercholesteremia Tobacco abuse Diabetes Hypertension Kidney stone on left side Surgical History S/P cardiac catheterization no stents S/P placement of cardiac pacemaker History of back surgery Social History Smoking/Tobacco Use Status: Former Tobacco Use Smoking risk assessment performed?: Yes Alcohol Intake: former Year quit: 2023 Drug use: Never Substance use type: does not use Do you feel safe at home: Yes Do you feel safe in your relationship?: Yes Time Spent with Patient Time Spent with Patient: <45 minutes Time was spent: preparing to see the patient(eg.review tests), obtaining and/or reviewing separately otained hiistory, ordering medications,tests, procedures, referring, communicating with other health day care supervisor, indepentently interpreting results, counseling the patient and care coordination
--- NOTE | 2024-08-24 11:47 | PTTR_ITS ---
PT Notes Visit Reasons: perforated sigmoid s/p [facility] Inpatient Physical Therapy Treatment Note [facility] Date: 08/24/24 SUBJECTIVE: Mani states that he is sore but feeling well. OBJECTIVE: []? VITALS: ?monitored by nsg. Therapeutic Activities ([id number]) am session: Direct one-on-one instruction in dynamic activities to improve functional performance. ? BED MOBILITY/TRANSFERS? Rolling L/R: I Supine-sit: I? Sit-stand: I ? Stand-sit: I? GAIT? Assistive Device:FWW? Weight bearing: full Assist: S ? Distance:? 600' ? Deviation: slightly fwd flexed posture? STAIRS:declined. I did them well yesterday. I'd rather walk. ? ASSESSMENT:? tolerated session well. Very little SOB after ambulation. Continued soreness in abdominal region but intensity stayed the same t/o session. PLAN: will continue to POC until d/c which is possible later today. TREATMENT CODE/TIME: 20 min. 01329m2
[2024-08-24 12:03] VITALS: BP 149/71; PULSE 64; RESP 16; TEMP 36.7; O2SAT 95
[2024-08-24] MEDS: Insulin Aspart 300 UNITS/3 ML PEN SC (12:25)
--- NOTE | 2024-08-24 12:34 | PDOC.HHF2F_ITS ---
Home Health Referral Home Health Orders Clinical synopsis of why skilled professionals are needed: New colostomy Medical diagnosis necessitation home health referral: Perforatation of sigmoid colon due to diverticulitis; Hardy's end colostomy Registered Nurse: Check all that apply Instruct on new or changed medication(s)/assess compliance: Ordered Instruct on ostomy care: Ordered Assess for exacerbation of medical condition, instruct patient/caregivers on signs and symptoms to report for early detection: Ordered Grocery Clerk: Assist with community resources: Ordered Home Bound Status Patient has a condition such that leaving home is medically contraindicated (Describe): New colostomy; taxing effort for him to leave the home. Encounter Date and Reason: I certify that a FTF encounter for this patient was performed on August 24, 2024 and that such encounter was related to the primary reason the patient requires home health services. The encounter was conducted in the following manner: * By me as the certifying physician, ELECTR[employer] ACCESSORIES ASSEMBLER, PA or * By an inpatient physician, ELECTRICAL ACCESSORIES ASSEMBLER or PA during an inpatient stay who communicated findings to me, Certification And Authentication I certify that I composed the above information based on my clinical judgment relating to this patient's medical condition and, if applicable, clinical findings communicated to me by the NPP or inpatient physician who performed the FTF encounter. Name of Provider that will be monitoring home health services: Andrea Kaiser
--- NOTE | 2024-08-24 13:16 | PDOC.CMDIS ---
Date of service: 08/24/24 Time of Service: 13:16 LACE Index Scoring Tool Questions: Length of Stay (in days): 4 - 6 Was the patient admitted via the E.D.?: Yes Comorbidities: Diabetes w/o Complication and Congestive Heart Failure E.D. Visits: 2 Answers: Total Score: 12 Risk of Readmission: High Risk Care Management Discharge Plan Reason for Hospitalization: perforation of sigmoid colon due to diverticulitis s/p exploratory lap and Saldana's end colostomy Discharge Plan: Mani is discharged home today with new orders for RN services for ostomy teaching. He will f/u with the surgeon here at [facility] on 09/02 and with his PCP on 09/07. Mani's records were faxed to [facility] yesterday, and his supply list and f/u plan were faxed to the [facility] successfully by CM, at their request. Mani is being given some supplies to take home. Mani will transport home in a private vehicle with his brother and continue per his plan of care. Patient/Family Education Needs: Review of discharge instructions, activity, limitations and review ask me 3. SDOH Health Related Social Needs: No Data to Display
== END 2024-08-24 14:25 | disposition home health service (06) | DRG 330 ==
LOC: ER 17:01 → SUR 19:36 → ICU 22:36 → MS 08-23 11:50
PROVIDERS: Family Medicine; Student in an Organized Health Care Education/Training Program; Surgery; Admitting Provider Surgery; Emergency Provider Emergency Medicine; PCP Physician Assistant Medical; Visit Provider Surgery
PROC: 0DTN0ZZ Resection of Sigmoid Colon, Open Approach (ICD-10-PCS; CPT 49000; principal; 2024-08-18 19:05)
DX: K57.20 Diverticulitis of large intestine with perforation and abscess without bleeding (principal); N17.9 Acute kidney failure, unspecified; E87.5 Hyperkalemia; E11.9 Type 2 diabetes mellitus without complications; E83.42 Hypomagnesemia; K21.9 Gastro-esophageal reflux disease without esophagitis; G25.81 Restless legs syndrome; E78.00 Pure hypercholesterolemia, unspecified; Z95.0 Presence of cardiac pacemaker; Z79.84 Long term (current) use of oral hypoglycemic drugs; G89.18 Other acute postprocedural pain; I25.2 Old myocardial infarction; I25.10 Atherosclerotic heart disease of native coronary artery without angina pectoris; J44.9 Chronic obstructive pulmonary disease, unspecified; Z87.891 Personal history of nicotine dependence; I45.9 Conduction disorder, unspecified; I50.9 Heart failure, unspecified; I11.0 Hypertensive heart disease with heart failure
CPT/HCPCS: 44143; 00123; 36415; 64488; 80048; 80053; 83690; 85027; 86850; 86900; 86901; 93005; 94640; 96361; 96365; 96367; 96375; 97110; 97116; 97161; 97530; 99291; J1650; 74174; 82607; 82728; 82746; 83605; 83735; 84132; 84484; 85025; 86140; 88307; 93010; 94664; 99223; 99233; J0131; J0665; J0666; J1100; J1171; J1815; J2405; J2470; J2543; J2704; J3010; J3475; J3490; J7042

== ENCOUNTER 2024-08-27 10:54 | Observation (INO) | payer OTHER, SELFPAY ==
[2024-08-27] VITALS (27 sets, daily range): BP systolic 92–130; BP diastolic 35–83; PULSE 60–102; RESP 14–24; TEMP 36.3–36.8; O2SAT 94–98; BMI 29.8
--- NOTE | 2024-08-27 11:15 | RT.EKG_ITS ---
APPROVED REPORT Exam: Resting ECG Reason for Exam: pre-op EKG Patient Location: E HR:67 bpm ECG Measurements Heart Rate [address] 133 P 156 QRSd 156 QRS 252 QT 460 T 87 QTc 485 Conclusion AV paced rhythm
--- NOTE | 2024-08-27 11:53 | HPE_ITS ---
Assessment and Plan Assessment and plan (1) Abdominal wound dehiscence: Status: Acute Assessment and plan: Based on the appearance today, I think that this was probably just a superficial wound collection, perhaps a old hematoma that drained after the top portion of the suture broke. Regardless, to be safe, I think direct examination of the fascia is probably the most important part here. I think that is best conducted in the operating room, and I explained the nature of the procedure to Mani. I would intend to washout the wound, debrided if necessary, and obtain a small amount of tissue to sample for bacterial logic examination. I would anticipate a negative pressure wound therapy dressing at the end of the operation, or at the very least wet-to-dry dressings. I think Mani has a very good understanding of all of this. History of Present Illness History of Present Illness Chief Complaint: Abdominal wound dehiscence N arrative: Mani 73 years old. He underwent Saldana's procedure for perforated diverticulitis last week. At the end of the operation, fascia was closed, and skin was reapproximated with a few interrupted stitches to pack in between. Patient's hospital recovery was uneventful, he was discharged home 3 days ago. Sometime yesterday, he developed multiple episodes of sneezing, and he felt a pop along his incision. There was some drainage of what sounds like bloody material. Visiting nurse was scheduled to see him today, and upon evaluation of the wound, she noticed that there appeared to be a broken suture. He contacted the office, was referred to the emergency department. Otherwise, has been feeling well. He denies any nausea vomiting, any systemic signs of infection, and has been managing the colostomy device pretty well at home. Review of Systems Constitutional Constitutional: Denies fever(s) and Reports weight loss Eyes Eyes: Reports system reviewed and no additional complaints, except as documented ENT Ears, Nose, Mouth, and Throat: Reports system reviewed and no additional complaints, except as documented Cardiovascular Cardiovascular: Denies chest pain and Denies dyspnea Respiratory Respiratory: Denies chest congestion, Reports cough and Denies dyspnea Gastrointestinal Gastrointestinal: Denies abdominal pain, Denies hematochezia and Denies change in stool character Genitourinary Genitourinary: Reports system reviewed and no additional complaints, except as documented Musculoskeletal Musculoskeletal: Reports system reviewed and no additional complaints, except as documented Hematologic/Lymphatic Hematologic/Lymphatic: Denies easy bleeding and Denies easy bruising PFSH All Active Problems Abdominal wound dehiscence (Acute) Pacemaker (Acute) Colostomy in place (Chronic) Medical History DVT prophylaxis History of coronary artery disease Perforation of sigmoid colon due to diverticulitis Hypomagnesemia Hyperkalemia KEIKO (acute kidney injury) Restless leg syndrome GERD (gastroesophageal reflux disease) History of congestive heart failure Hypercholesteremia Tobacco abuse Diabetes Hypertension Kidney stone on left side Surgical History S/P cardiac catheterization no stents S/P placement of cardiac pacemaker History of back surgery Social History Smoking/Tobacco Use Status: Former Tobacco Use Smoking risk assessment performed?: Yes Alcohol Intake: former Year quit: 2023 Drug use: Never Substance use type: does not use Housing: house Do you feel safe at home: Yes Do you feel safe in your relationship?: Yes Meds Allergies and Home Medications Allergies Allergy/AdvReac Type Severity Reaction Status Date / Time lidocaine Allergy Severe Other (See Unverified 08/27/24 11:10 Comment) latex Allergy Mild Skin Rash Unverified 08/27/24 11:10 Home Medications ?Medication ?Instructions ?Recorded ?Confirmed ?Type aspirin 81 mg tablet,delayed 81 mg PO DAILY 11/18/18 08/27/24 History release (Aspir-Low) amlodipine 5 mg tablet 5 mg PO DAILY 09/08/23 08/27/24 History omeprazole 20 mg capsule,delayed 20 mg PO DAILY 09/08/23 08/27/24 History release ropinirole 2 mg tablet 2 mg PO DAILY 09/08/23 08/27/24 History rosuvastatin 40 mg tablet 40 mg PO DAILY 09/08/23 08/27/24 History cyanocobalamin (vitamin B-12) 250 250 mcg PO DAILY 02/06/24 08/27/24 History mcg tablet (Vitamin B-12) furosemide 20 mg tablet 20 mg PO DAILY 02/06/24 08/27/24 History ferrous gluconate 324 mg (38 mg 324 mg PO DAILY 08/18/24 08/27/24 History iron) tablet metformin 500 mg tablet,extended 500 mg PO BID 08/18/24 08/27/24 History release 24 hr naproxen 375 mg tablet,delayed 375 mg PO BID PRN 08/18/24 08/27/24 History release (EC-Naprosyn) nicotine (polacrilex) 2 mg gum 2 mg PO Q2H PRN 08/18/24 08/27/24 History sildenafil 50 mg tablet 50 mg PO ONCE PRN 08/18/24 08/27/24 History Exam Const General: cooperative and comfortable Orientation: alert, awake and oriented x3 HENMT Head: normal to inspection Eyes General: appearance normal, both eyes and all related structures Neck Neck: normal visual inspection, full ROM and no lymphadenopathy GI Inspection: non-distended and incision (Dehiscence of the skin edge, with a broken suture) Auscultation: normal bowel sounds Other: It is difficult to see the depth of the wound based on his body habitus. The fascia feels intact. There are no active signs of infection. Results Labs 08/27/24 12:22 08/27/24 12:22 Last Vital Signs Temp 97.3 F L 08/27/24 11:02 Pulse 77 08/27/24 11:02 Resp 18 08/27/24 11:02 BP 109/73 08/27/24 11:02 Pulse Ox 95 08/27/24 11:02
--- NOTE | 2024-08-27 11:57 | W.ED.GENAD ---
Discharge Plan Disposition Patient Disposition: Admit to [facility] Condition: Stable Discharge Details Chief Complaint: Abd Prob Clinical Impression: Colostomy in place, Pacemaker, Abdominal wound dehiscence Primary Care Provider: Andrea Kaiser ED Provider: Guillermo Ty Home Meds and New Rx's Prescriptions: No Action amlodipine 5 mg tablet 5 mg PO DAILY ropinirole 2 mg tablet 2 mg PO DAILY omeprazole 20 mg capsule,delayed release(DR/EC) 20 mg PO DAILY rosuvastatin 40 mg tablet 40 mg PO DAILY furosemide 20 mg tablet 20 mg PO DAILY cyanocobalamin (vitamin B-12) [Vitamin B-12] 250 mcg tablet 250 mcg PO DAILY ferrous gluconate 324 mg (38 mg iron) tablet 324 mg PO DAILY Patient Comments: M-W- metformin 500 mg tablet extended release 24 hr 500 mg PO BID naproxen [EC-Naprosyn] 375 mg tablet,delayed release (DR/EC) 375 mg PO BID PRN nicotine (polacrilex) 2 mg gum 2 mg PO Q2H PRN sildenafil 50 mg tablet 50 mg PO ONCE PRN Rx Instructions: administer 30 minutes to 4 hours before activity aspirin [Aspir-Low] 81 mg Tablet,Delayed Release (Dr/Ec) 81 mg PO DAILY HPI General Date/Time Provider Initiated Documentation: 08/27/24 10:56. Limitations to Documentation: no limitations. Information obtained by: patient. HPI Narrative: 73-year-old gentleman with past medical history of pacemaker, colostomy, perforated diverticulitis, hypertension, diabetes presents for evaluation of abdominal wound. Patient recently had exploratory laparotomy and Saldana's end colostomy. He was discharged from the hospital a few days ago. Last night he noted when he went to change his bandage take a shower that his abdominal wound was open and leaking clear red fluid. The patient denies abdominal pain, vomiting or fever. Related Data Home Medications ?Medication ?Instructions ?Recorded ?Confirmed aspirin 81 mg tablet,delayed 81 mg PO DAILY 11/18/18 08/18/24 release (Aspir-Low) amlodipine 5 mg tablet 5 mg PO DAILY 09/08/23 08/18/24 omeprazole 20 mg capsule,delayed 20 mg PO DAILY 09/08/23 08/18/24 release ropinirole 2 mg tablet 2 mg PO DAILY 09/08/23 08/18/24 rosuvastatin 40 mg tablet 40 mg PO DAILY 09/08/23 08/18/24 cyanocobalamin (vitamin B-12) 250 250 mcg PO DAILY 02/06/24 08/18/24 mcg tablet (Vitamin B-12) furosemide 20 mg tablet 20 mg PO DAILY 02/06/24 08/18/24 ferrous gluconate 324 mg (38 mg 324 mg PO DAILY 08/18/24 08/18/24 iron) tablet metformin 500 mg tablet,extended 500 mg PO BID 08/18/24 08/18/24 release 24 hr naproxen 375 mg tablet,delayed 375 mg PO BID PRN 08/18/24 08/18/24 release (EC-Naprosyn) nicotine (polacrilex) 2 mg gum 2 mg PO Q2H PRN 08/18/24 08/18/24 sildenafil 50 mg tablet 50 mg PO ONCE PRN 08/18/24 08/18/24 Allergies Allergy/AdvReac Type Severity Reaction Status Date / Time lidocaine Allergy Severe Other (See Unverified 08/27/24 11:10 Comment) latex Allergy Mild Skin Rash Unverified 08/27/24 11:10 General Stated Complaint: Abd Prob ISACC: 3 Exam Narrative Exam Narrative: Review of Systems: All systems reviewed & are unremarkable except as noted in HPI and below Well-developed, no acute distress NCAT RRR Unlabored respiratory effort Ostomy in place stoma appears healthy, midline laparotomy scar has dehisced through multiple layers down to the fascia, there is some serosanguineous drainage, no foul smell Course Vital Signs Vital signs: Vital Signs Temperature 36.3 C L 08/27/24 11:02 Pulse 77 08/27/24 11:02 Respiratory Rate 18 08/27/24 11:02 Blood Pressure 109/73 08/27/24 11:02 Pulse Oximetry 95 08/27/24 11:02 Temperature 36.3 C L 08/27/24 11:02 Temperature Source Oral 08/27/24 11:02 Pulse 77 08/27/24 11:02 Respiratory Rate 18 08/27/24 11:02 Blood Pressure 109/73 08/27/24 11:02 Blood Pressure Position Sitting 08/27/24 11:02 Pulse Oximetry 95 08/27/24 11:02 Oxygen Delivery Method Room Air 08/27/24 11:02 Oxygen Flow Rate 0 08/27/24 11:02 Pain Level 2 08/27/24 11:28 Comment TELIDA 08/27/24 11:02 Medical Decision Making Emergent evaluation of postoperative wound dehiscence. Patient has significant wound dehiscence noted on his laparotomy. General surgery was made aware of this wound by home health care and recommended the patient come to the emergency department for further evaluation. Given that he significance of the wound, patient will require hospitalization for washout closure and wound VAC. Preoperative labs were obtained. Patient was evaluated by general surgery in the emergency department and the patient will be admitted to their service for further management. Quality:SDOH Health Related Social Needs: No Data to Display PFSH All Active Problems (Updated 08/27/24 @ 12:01 by Guillermo Ty MD) Abdominal wound dehiscence (Acute) Pacemaker (Acute) Colostomy in place (Chronic) Medical History DVT prophylaxis History of coronary artery disease Perforation of sigmoid colon due to diverticulitis Hypomagnesemia Hyperkalemia KEIKO (acute kidney injury) Restless leg syndrome GERD (gastroesophageal reflux disease) History of congestive heart failure Hypercholesteremia Tobacco abuse Diabetes Hypertension Kidney stone on left side Surgical History S/P cardiac catheterization no stents S/P placement of cardiac pacemaker History of back surgery Social History Smoking/Tobacco Use Status: Former Tobacco Use Smoking risk assessment performed?: Yes Alcohol Intake: former Year quit: 2023 Drug use: Never Substance use type: does not use Housing: house Do you feel safe at home: Yes Do you feel safe in your relationship?: Yes
[2024-08-27 12:29] LABS: Abs Immature Grans 0.03 10^3/uL (0.0-0.06); Absolute Basophil Count 0.03 10^3/uL (0.0-0.2); Absolute Eosinophil Count 0.28 10^3/uL (0.0-0.7); Absolute Lymphocyte Count 1.02 10^3/uL (1.2-3.4); Absolute Monocyte Count 0.55 10^3/uL (0.1-0.8); Absolute Neutrophil Count 5.18 10^3/uL (1.2-6.7); Basophils % 0.4 %; Eosinophils % 3.9 %; HCT 33.1 % (40.0-50.0); HGB 11.1 g/dL (13.5-17.5); Immature Grans % 0.4 %; Lymphocytes % 14.4 %; MCH 31.7 pg (27.0-33.0); MCHC 33.5 % (32.0-36.0); MCV 95 fL (80-95); MPV 10.1 fL (8.0-11.0); Monocytes % 7.8 %; Neutrophils % 73.1 %; Platelet Count 277 10^3/uL (130-400); RDW 12.4 % (11.8-14.1); RDW-SD 43.1 fL; WBC 7.09 10^3/uL (4.4-10.8)
[2024-08-27 12:39] LABS: INR 1.1 (0.9-1.1); Prothrombin Time 11.3 sec (9.1-11.1)
[2024-08-27 12:43] LABS: ALT 38 U/L (16-63); AST 27 U/L (15-37); Albumin 3.1 g/dL (3.4-5.0); Alkaline Phosphatase 97 U/L (46-116); BUN 21 mg/dL (7-18); Bilirubin, Total 0.37 mg/dL (0.2-1.0); CREATININE 1.5 mg/dL (0.70-1.30); Calcium 9.6 mg/dL (8.5-10.1); Chloride 104 mmol/L (98-107); Estimated GFR 49.16 (mL/min/1.73m2); Glucose 138 mg/dL (74-106); Potassium 3.8 mmol/L (3.5-5.1); Sodium 142 mmol/L (136-145); Total Protein 7.6 g/dL (6.4-8.2)
--- NOTE | 2024-08-27 12:48 | ANES.PREOP_ITS ---
General Info Date of Service Date Performed: 08/27/24 Height: 6 ft Weight: 99.79 kg Body Mass Index (BMI): 29.8 Surgical Procedure: Operation Date: 08/27/24 14:40 Proposed Procedure Side Surgeon p Abdominal Wound Washout/Debridement Glenn Castillo MD Meds Allergies and Home Medications Allergies Allergy/AdvReac Type Severity Reaction Status Date / Time lidocaine Allergy Severe Other (See Unverified 08/27/24 11:10 Comment) latex Allergy Mild Skin Rash Unverified 08/27/24 11:10 Home Medication ?Medication ?Instructions ?Recorded aspirin 81 mg tablet,delayed 81 mg PO DAILY 11/18/18 release (Aspir-Low) amlodipine 5 mg tablet 5 mg PO DAILY 09/08/23 omeprazole 20 mg capsule,delayed 20 mg PO DAILY 09/08/23 release ropinirole 2 mg tablet 2 mg PO DAILY 09/08/23 rosuvastatin 40 mg tablet 40 mg PO DAILY 09/08/23 cyanocobalamin (vitamin B-12) 250 250 mcg PO DAILY 02/06/24 mcg tablet (Vitamin B-12) furosemide 20 mg tablet 20 mg PO DAILY 02/06/24 ferrous gluconate 324 mg (38 mg 324 mg PO DAILY 08/18/24 iron) tablet metformin 500 mg tablet,extended 500 mg PO BID 08/18/24 release 24 hr naproxen 375 mg tablet,delayed 375 mg PO BID PRN 08/18/24 release (EC-Naprosyn) nicotine (polacrilex) 2 mg gum 2 mg PO Q2H PRN 08/18/24 sildenafil 50 mg tablet 50 mg PO ONCE PRN 08/18/24 Current Visit Medications: Current Medications Generic Name Dose Route Start Last Admin Trade Name Freq PRN Reason Stop Dose Admin IV Miscellaneous Supplies 1 each 08/27/24 11:15 Iv Access-Emergency Dept IV DIRECTED SONIA Sodium Chloride 0 ml 08/27/24 11:15 Normal Saline 10 Ml Vial IJ DIRECTED PRN Sodium Chloride 0 ml 08/27/24 11:15 Normal Saline Flush 10 Ml Syr IVP PRN PRN Sodium Chloride 0 ml 08/27/24 20:00 Normal Saline Flush 10 Ml Syr IVP BID SONIA PFSH Active Problems Active Problems: Problem Status Onset Code Abdominal wound dehiscence Acute T81.321A Pacemaker Acute Z95.[address] Chronic Z93.3 Medical History Medical History DVT prophylaxis History of coronary artery disease Perforation of sigmoid colon due to diverticulitis Hypomagnesemia Hyperkalemia KEIKO (acute kidney injury) Restless leg syndrome GERD (gastroesophageal reflux disease) History of congestive heart failure Hypercholesteremia Tobacco abuse Diabetes Hypertension Kidney stone on left side Surgical History Surgical History S/P cardiac catheterization no stents S/P placement of cardiac pacemaker History of back surgery Tobacco Smoking/Tobacco Use Status: Former Tobacco Use Alcohol Alcohol Intake: former Year quit: 2023 Substance Use Substance use: Never Substance use type: does not use Vital Signs and Lab Results Vital Signs Most Recent Vital Signs in EMR: Most Recent Vital Signs Temp Pulse Resp BP Pulse Ox 36.3 C L 63 18 130/83 95 08/27/24 11:02 08/27/24 12:40 08/27/24 12:40 08/27/24 12:30 08/27/24 12:40 Lab Results 08/27/24 12:22 08/27/24 12:22 Blood Type / Crossmatch: 2 Antibody Screen NEGATIVE 08/18/24 Complete Blood Count: 2 White Blood Count 7.09 10^3/uL (4.4-10.8) 08/27/24 12:22 Red Blood Count 3.50 10^6/uL (4.36-5.78) L 08/27/24 12:22 Hemoglobin 11.1 g/dL (13.5-17.5) L 08/27/24 12:22 Hematocrit 33.1 % (40.0-50.0) L 08/27/24 12:22 Platelet Count 277 10^3/uL (130-400) 08/27/24 12:22 Venous Blood Lactate 3.9 mmol/L (<or=2.0) H* 08/18/24 15:34 Complete Metabolic Panel: 2 Sodium 142 mmol/L (136-145) 08/27/24 12:22 Potassium 3.8 mmol/L (3.5-5.1) 08/27/24 12:22 Chloride 104 mmol/L (98-107) 08/27/24 12:22 Carbon Dioxide 29.0 mmol/L (21.0-32.0) 08/27/24 12:22 BUN 21 mg/dL (7-18) H 08/27/24 12:22 Creatinine 1.5 mg/dL (0.70-1.30) H 08/27/24 12:22 Est GFR (CKD-EPI 2020) 49.16 (mL/min/1.73m2) 08/27/24 12:22 Magnesium 1.8 mg/dL (1.8-2.4) 08/23/24 06:45 Calcium 9.6 mg/dL (8.5-10.1) 08/27/24 12:22 Albumin 3.1 g/dL (3.4-5.0) L 08/27/24 12:22 Glucose 138 mg/dL (74-106) H 08/27/24 12:22 C-Reactive Protein 9.43 mg/dL (<or=0.5) H 08/23/24 06:45 Liver Function Panel: 2 Alanine Aminotransferase (ALT/SGPT) 38 U/L (16-63) 08/27/24 12: 22 Aspartate Amino Transf (AST/SGOT) 27 U/L (15-37) 08/27/24 12:22 Coagulation Panel: 2 INR International Normalized Ratio 1.1 (0.9-1.1) 08/27/24 12:2 2 Prothrombin Time 11.3 sec (9.1-11.1) H 08/27/24 12:22 Cardiac Panel: 2 Troponin I 13 ng/L (<or=76) 08/20/24 Arterial Blood Gas: 2 No Data to Display Venous Blood Gas: 2 No Data to Display Pancreas Panel: 2 Lipase 18 U/L (<78) 08/18/24 16:05 Thyroid Panel: 2 No Data to Display Infectious Disease: 2 No Data to Display Blood Cultures: 2 No Data to Display Toxicology Panel: 2 No Data to Display Anesthesia Assessment and Plan Anesthesia History Personal History: No History of Anesthesia Complications and Pseudocholinesterase Deficiency Family History: No Family History of Anesthesia Complications Exercise Tolerance Exercise Tolerance: Metabolic Equivalents>4 Pertinent Negatives Pertinent Negatives: No Symptoms of GERD Cardiac & Pulmonary Exam Cardiac Exam: Normal S1/S2 Heart Sounds Pulmonary Exam: Clear Bilateral Breath Sounds Implantable Cardiac Device Does patient have a Pacemaker or an ICD?: Yes Device Transportation Engineering Technician:: [id number] Reason for Placement:: Resynchronization therapy Date of Last Device Interrogation:: None per pt. Airway Exam Known Difficult Airway: No Mallampati Class: 1 Mouth Opening: Normal (> 3cm) Thyromental Distance: Greater than 3 cm Neck Range of Motion: Full ROM Neck Circumference: Normal Teeth Condition: Normal Dentition ASA Classification ASA Score: ASA 3 Emergency Case?: No NPO Status NPO Status: NPO Clears >2 hours, Solids >8 hours Anesthesia Plan Resuscitation Status: Full Code Anesthesia Technique: General Anesthesia Airway Planned: Natural Airway Monitors Used: Standard Monitors
[2024-08-27] MEDS: Lactated Ringers 1,000 ML 30 ML IV (15:15)
[2024-08-27] MEDS: Bupivacaine 0.5% Pres-Free 30 ML VIAL (15:29)
--- NOTE | 2024-08-27 16:11 | W.PM.OP ---
Operative Note Operative Note PRE-OP DIAGNOSIS: Complications of surgical wound POST-OP DIAGNOSIS: same PROCEDURE: Washout, debridement, culture and redressing of laparotomy wound SURGEON: Glenn Castillo ANESTHESIA TYPE: MAC Refer to Anesthesia Record ESTIMATED BLOOD LOSS: 5 PATHOLOGY: other (Wound smear for Gram stain and culture; tissue for Gram stain and culture) COMPLICATIONS: None Patient was transported to: PACU Patient's condition: stable Indications: Mani is a 73-year-old male who had perforated diverticulitis. He underwent Saldana's procedure with creation of an end colostomy. Laparotomy wound was treated with interrupted simple sutures and wound packing. He was subsequently discharged home with visiting nurse care. He experienced multiple episodes of sneezing, and broke one of the stitches with drainage of suspicious tissue. Findings: Old hematoma mild fat necrosis of laparotomy incision; fascia appears intact Procedure Description: Mani was brought back to the OR, and assisted onto the operating room table. He was padded and supported appropriately. General anesthesia was induced by way of a natural airway. Next, I removed his previous abdominal dressings, as well as his colostomy management device. The area around the colostomy site was cleaned. I used gauze, and Tegaderms to dress this. There were 4 remaining stitches in the midline surgical wound that I cut free. There was a small amount of packing in the midline wound which I removed. I then prepped and draped the anterior abdominal wall using Betadine. I established a generous field block around the incision using local anesthetic. There is some old dried blood on the superficial edge of the incision that was all debrided away. Deeper down, there are multiple areas of small old clotted blood. These were irrigated, and manually debrided clean. This brought me down to the level of the fascia. I was able to see the inferior pole of the fascial closure, where there was a small amount of obvious suture. The knot was preserved, and the visible suture all appeared normal and without compromise. The fascial closure was gently palpated along its length. There was no evidence of any fascial dehiscence, separation, or any compromise of the fascial tissue. I saw no signs of obvious infection. Next, swabs of the wound base were obtained for Gram stain and culture, and I sharply debrided a small portion of the deep fat edge for microbiologic exam as well. Next, I irrigated the wound. After this, all the layers of the skin and subcutaneous fat were examined down to the level of the anterior fascia sheath. Again, I saw no evidence of any obvious purulence or clear signs of infection. There was a small amount of necrotic nonviable fat on each side of the incision, mostly at the midportion it was also sharply debrided clean. This was hemostatic. The wound was irrigated, mechanically debrided 1 last time. Although I do think this wound would do well with negative pressure therapy, just quite close to the colostomy, and I do worry a little bit about contamination in the ability of the negative pressure therapy to function appropriately. I think at least a short period of wet-to-dry dressings for repeat examination of the wound will also be in his best interest. Therefore, I gently packed the wound with sterile Kerlix gauze, and an ABD and tape were used to help hold this in place. Once this was all done, the colostomy dressing was removed, and a new colostomy device was applied taking great care to make sure that it was from the area around the incision. Mani tolerated the procedure wonderfully, he was allowed awaken from the anesthetic and transferred to the recovery unit. Date of Procedure: 08/27/24
--- NOTE | 2024-08-27 16:23 | W.ANESPOSTOP ---
Postoperative Evaluation Date, Time and Location Date Performed: 08/27/24 Time Performed: 16:23 Patient Location: PACU Vital Signs Most Recent Imported Vital Signs: Most Recent Vital Signs Temp Pulse Resp BP Pulse Ox 36.5 C 61 18 96/49 L 98 08/27/24 16:08 08/27/24 16:17 08/27/24 16:17 08/27/24 16:17 08/27/24 16:17 Pain Score Most Recent Pain Score: Most Recent Pain Score Pain Level 0 08/27/24 16:08 Assessment Mental Status: Awake (Alert & Oriented to Patient Baseline) Airway and Respiratory Function: Patent airway with normal (patient baseline) respiratory exam Cardiovascular Function: Hemodynamically Stable Hydration Status: Adequately Hydrated Nausea & Vomiting: No Nausea or Vomiting Pain: Pt. Denies Any Pain Peripheral Nerve Block: Patient did not receive a nerve block
--- NOTE | 2024-08-27 17:44 | W.PC.ACHO ---
Registration Status: Primary Language: Preferred Language: ED Information & Data Chief Complaint Abd Prob 08/27/24 12:01 Triage Note abdominal wound dehiscence 08/27/24 11:02 last night. seen by HH today . sent by dr martinez for possible washout and wound vac. denies fevers. Medical / Surgical History (Last Reviewed 08/27/24 @ 12:31 by Glenn Martinez MD) DVT prophylaxis History of coronary artery disease Perforation of sigmoid colon due to diverticulitis Hypomagnesemia Hyperkalemia KEIKO (acute kidney injury) Restless leg syndrome GERD (gastroesophageal reflux disease) History of congestive heart failure Hypercholesteremia Tobacco abuse Diabetes Hypertension Kidney stone on left side (Last Reviewed 08/27/24 @ 12:31 by Glenn Martinez MD) S/P cardiac catheterization S/P placement of cardiac pacemaker History of back surgery Most Recent Vital Signs Temperature 97.7 F 08/27/24 17:18 Temperature Source Temporal Artery Scan 08/27/24 16:57 Pulse 72 08/27/24 17:18 Pulse Rhythm Regular 08/27/24 17:18 Pulse 61 08/27/24 16:17 Respiratory Rate 16 08/27/24 17:18 Respiratory Effort Normal, Non-Labored 08/27/24 17:18 Respiratory Depth Normal 08/27/24 17:18 Respiratory Pattern Normal 08/27/24 17:18 Blood Pressure 94/58 L 08/27/24 17:18 Blood Pressure Mean 64 08/27/24 16:17 Blood Pressure Position Sitting 08/27/24 13:23 Pulse Oximetry 97 08/27/24 17:18 Respiratory End-tidal CO2 31 08/27/24 16:17 Oxygen Delivery Method Room Air 08/27/24 17:18 Oxygen Flow Rate 0 08/27/24 17:18 Pain Level 1 08/27/24 17:18 Comment UTE 08/27/24 11:02 Comment left arm 08/27/24 12:52 Allergies lidocaine Allergy (Severe, Unverified 08/27/24 15:36) Other (See Comment) Likely from Epi, Done fine with bupivacaine latex Allergy (Mild, Unverified 08/27/24 11:10) Skin Rash Precautions Isolation Standard precaution 08/27/24 11:28 IV IV Catheter Type [Right Saline Lock Antecubital] IV Catheter Gauge [Right 18 Antecubital] Diet Orders Category Date Time Status Diabetes Consistent CHO/Heart Healthy [DIET] Nutrition 08/27/24 Dinner Active Diagnostics 08/27/24 Range/Units 12:22 WBC 7.09 (4.4-10.8) 10^3/uL RBC 3.50 L (4.36-5.78) 10^6/uL Hgb 11.1 L (13.5-17.5) g/dL Hct 33.1 L (40.0-50.0) % MCV 95 (80-95) fL MCH 31.7 (27.0-33.0) pg MCHC 33.5 (32.0-36.0) % RDW 12.4 (11.8-14.1) % Plt Count 277 (130-400) 10^3/uL MPV 10.1 (8.0-11.0) fL Immature Gran % 0.4 % Neutrophils % 73.1 % Lymphocytes % 14.4 % Monocytes % 7.8 % Eosinophils % 3.9 % Basophils % 0.4 % Nucleated RBC % 0.0 (0.0-0.3) % Absolute Neutrophils 5.18 (1.2-6.7) 10^3/uL Absolute Lymphocytes 1.02 L (1.2-3.4) 10^3/uL Absolute Monocytes 0.55 (0.1-0.8) 10^3/uL Absolute Eosinophils 0.28 (0.0-0.7) 10^3/uL Absolute Basophils 0.03 (0.0-0.2) 10^3/uL PT 11.3 H (9.1-11.1) sec INR 1.1 (0.9-1.1) Sodium 142 (136-145) mmol/L Potassium 3.8 (3.5-5.1) mmol/L Chloride 104 (98-107) mmol/L Carbon Dioxide 29.0 (21.0-32.0) mmol/L Anion Gap 9.0 (3-11) mmol/L BUN 21 H (7-18) mg/dL Creatinine 1.5 H (0.70-1.30) mg/dL Est GFR (CKD-EPI 2020) 49.16 (mL/min/1.73m2) Glucose 138 H (74-106) mg/dL Calcium 9.6 (8.5-10.1) mg/dL Total Bilirubin 0.37 (0.2-1.0) mg/dL AST 27 (15-37) U/L ALT 38 (16-63) U/L Alkaline Phosphatase 97 (46-116) U/L Total Protein 7.6 (6.4-8.2) g/dL Albumin 3.1 L (3.4-5.0) g/dL 08/27/24 15:34 Anaerobic Culture - Pending Abdomen 08/27/24 15:34 Surgical Culture - Pending Abdomen Gram Stain - Pending 08/27/24 15:34 Surgical Culture - Pending Abdomen Gram Stain - Pending 08/27/24 15:34 Anaerobic Culture - Pending Abdomen Intake and Output - 24 Hour Total 08/27/24 10:54 thru 08/27/24 17:18 Intake Total 300 Balance 300 Weight 220 lb Intake: IV 300 Other: Emesis Description None Falls Risk Assessment History of Falls No History 08/27/24 17:18 Contributing Factors Impairments 08/27/24 17:18 Ambulatory Aids Independent 08/27/24 17:18 Tubes/Lines None 08/27/24 17:18 Gait Evaluation No gait disturbance 08/27/24 17:18 Cognition No cognitive impairment 08/27/24 17:18 Fall Total Score 3 08/27/24 17:18 Level of Risk Standard/Low Risk 08/27/24 17:18 Problems (Last Reviewed 08/27/24 @ 12:31 by Glenn Martinez MD) Abdominal wound dehiscence (Acute) Pacemaker (Acute) Colostomy in place (Chronic) v v v v v v v v v Sending and/or Receiving Nurses: Please use comment section below to note any information pertinent to the patient hand-off not included above. Information / Comments: Report received from: Jennifer JEFF
[2024-08-27] MEDS: Enoxaparin 40 MG/0.4 ML SYR SC (18:49)
[2024-08-27] MEDS: Acetaminophen 500 MG TAB 1000 MG PO (18:50)
[2024-08-27] MEDS: Normal Saline Flush 10 ML SYR IVP (20:31)
[2024-08-27] MEDS: metFORMIN C.R. 500 MG TABCR PO (20:32)
[2024-08-27] MEDS: rOPINIRole 1 MG TAB 2 MG PO (20:57)
[2024-08-27 23:40] LABS: COVID-19 PCR Negative (Negative); Influenza A PCR Negative (Negative); Influenza B PCR Negative (Negative); RSV PCR Negative (Negative)
[2024-08-27 23:51] LABS: Source Nasopharynx
[2024-08-28 07:25] VITALS: BP 105/65; PULSE 66; RESP 18; TEMP 36.6; O2SAT 92
[2024-08-28] MEDS: Furosemide 20 MG TAB PO (07:35)
[2024-08-28] MEDS: metFORMIN C.R. 500 MG TABCR PO ×2 (07:35→19:46)
[2024-08-28] MEDS: Aspirin E.C. 81 MG TABEC PO (07:35)
[2024-08-28] MEDS: Rosuvastatin 20 MG TAB 40 MG PO (07:35)
[2024-08-28] MEDS: amLODIPine 5 MG TAB PO (07:35)
[2024-08-28] MEDS: Cyanocobalamin 500 MCG TAB 250 MCG PO (07:35)
[2024-08-28] MEDS: Omeprazole 20 MG CAPCR PO (07:35)
[2024-08-28] MEDS: Normal Saline Flush 10 ML SYR IVP ×2 (07:36→19:47)
--- NOTE | 2024-08-28 08:29 | W.PM.PROGNOT ---
Date of Service Date of service: 08/28/24 Time of Service: 08:29 Assessment and Plan Assessment and plan (1) Abdominal wound dehiscence: Status: Acute Assessment and plan: Overall, I think Mani is doing quite well, his vital signs are very reassuring, and his white blood cell count remains within normal limits this morning. Gram stain is positive on one of the 2 specimen sent from the ER, but given the clinical appearance of the wound, I am skeptical that there is an active infection here. I do prefer to hold off on antibiotics at this point. We will continue with wet-to-dry dressing changes over the next 24 hours. If the wound continues to improve, I be hopeful that he could be discharged home with visiting nurses for dressing changes. Subjective Subjective Interval history since last seen: Mani is up and sitting in the chair today. He was comfortable overnight, and his vital signs are all reassuring. Exam GI Other: Abdomen is soft and nondistended. The colostomy is working fine. I removed all of the wound packing, and it looks clean and healthy. Objective Last Vital Signs Temp 97.9 F 08/28/24 07:25 Pulse 66 08/28/24 07:25 Resp 18 08/28/24 07:25 BP 105/65 08/28/24 07:25 Pulse Ox 92 08/28/24 07:25 Laboratory Results - last 24 hr 08/27/24 08/27/24 08/28/24 12:22 23:00 05:12 WBC 7.09 RBC 3.50 L Hgb 11.1 L Hct 33.1 L MCV 95 MCH 31.7 MCHC 33.5 RDW 12.4 Plt Count 277 MPV 10.1 Immature Gran % 0.4 Neutrophils % 73.1 Lymphocytes % 14.4 Monocytes % 7.8 Eosinophils % 3.9 Basophils % 0.4 Nucleated RBC % 0.0 Absolute Neutrophils 5.18 Absolute Lymphocytes 1.02 L Absolute Monocytes 0.55 Absolute Eosinophils 0.28 Absolute Basophils 0.03 PT 11.3 H INR 1.1 Sodium 142 Potassium 3.8 Chloride 104 Carbon Dioxide 29.0 Anion Gap 9.0 BUN 21 H Creatinine 1.5 H Est GFR (CKD-EPI 2020) 49.16 Glucose 138 H Calcium 9.6 Total Bilirubin 0.37 AST 27 ALT 38 Alkaline Phosphatase 97 Total Protein 7.6 Albumin 3.1 L COVID-19 Source Nasopharynx Cancelled SARS-CoV-2 (PCR) Negative Cancelled Influenza Type A (PCR) Negative Cancelled Influenza Type B (PCR) Negative Cancelled RSV (PCR) Negative Cancelled Time Spent with Patient Time Spent with Patient: 25-34 minutes Time was spent: preparing to see the patient(eg.review tests), indepentently interpreting results and counseling the patient
[2024-08-28] MEDS: Acetaminophen 500 MG TAB 1000 MG PO ×2 (09:23→19:46)
[2024-08-28 15:02] VITALS: BP 122/71; PULSE 65; RESP 18; TEMP 36.5; O2SAT 98
--- NOTE | 2024-08-28 16:13 | INITIAL_ITS ---
Date of service: 08/28/24 Time of Service: 16:14 Care Management Initial Assmt Initial Assessment Reason for Hospitalization: abdominal wound dehiscence Functional Status/Living Situation Patient Presentation: Mani was lying in bed when CM met with him. His older brother was visiting. Mani stated that he is feeling a lot better today, and noted that his is also admitted to the hospital, and that today is their wedding anniversary. He stated that per MD, he would likely be ready for discharge tomorrow. He asked about any changes to his wound care; CM stated that the provider will make recommendations and they will be sent to , in order to resume his wound care at home after discharge. CM will continue to follow. Town of Residence: [place] Resides with: Spouse (Marine) Significant Other/Family: Local Natural Supports: Mani has 3 brothers and 2 sisters and some of their families, who live nearby. 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 He still likes to take walks with his gun. Medications Medication Management: No Issues/Barriers identified Advance Directives Advance Directives: Do you have an Advance Directive: N 06/25/13 11:44 AD On File at [facility]: N 11/15/12 07:06 Date Asked 08/27/24 08/27/24 11:29 AD Date Reviewed COLST On File at [facility] COLST Date Scanned Code Status Resuscitation Status Full Code Insurance Coverage/Financial Issues Insurance: [facility] Care Team Visit Care Team Role Provider Type Andrea Kaiser MD Primary Care Provider NON-[facility] STAFF PHYSICIAN Guillermo Ty MD Emergency Provider [facility] STAFF PHYSICIAN Glenn Castillo MD Admit Provider [facility] STAFF PHYSICIAN Attending Provider Discharge Potential Discharge Needs: Surgical F/U Appt Anticipated Barriers to Discharge: None Identified Patient/Family Education Needs: Review discharge instructions, discuss Ask Me Three Transportation: Private vehicle Plan: Anticipate Mani will return home with a resumption of HH RN for wound care once medically cleared. He will transport home via private vehicle by family. He will follow up with surgical services and his discharge plan of care. CM will continue to follow. Social Determinants of Health Screening Social Determinants of Health last assessed: 08/28/24 Will the Patient Participate in the Screening?: Yes Do you worry about having a steady place to live?: no Problems where you live: no known problems In the past 12 months, have you had to go without electric, gas, oil or water in your home?: no Have you or anyone in your house had to go without enough food to eat?: no Has lack of transportation kept you from medical appointments or from doing things needed for daily living?: no Has anyone in your life made you feel unsafe or unsupported?: no How hard is it for you to pay for the very basics like food, housing, medical care, and heating? Would you say it is:: Not hard at all Do you want help finding or keeping work or a job?: I do not need or want help If for any reason you need help with day-to-day activities such as bathing, preparing meals, shopping, managing finances, etc., do you get the help you need?: I don?t need any help How often do you feel lonely or isolated from those around you?: Never Do you speak a language other than Brazilian at home?: No Does the patient want assistance with any of the above?: No PFSH All Active Problems Abdominal wound dehiscence (Acute) Pacemaker (Acute) Colostomy in place (Chronic) Medical History DVT prophylaxis History of coronary artery disease Perforation of sigmoid colon due to diverticulitis Hypomagnesemia Hyperkalemia KEIKO (acute kidney injury) Restless leg syndrome GERD (gastroesophageal reflux disease) History of congestive heart failure Hypercholesteremia Tobacco abuse Diabetes Hypertension Kidney stone on left side Surgical History S/P cardiac catheterization no stents S/P placement of cardiac pacemaker History of back surgery Social History Smoking/Tobacco Use Status: Former Tobacco Use Smoking risk assessment performed?: Yes Alcohol Intake: former Year quit: 2023 Drug use: Never Substance use type: does not use Housing: house Do you feel safe at home: Yes Do you feel safe in your relationship?: Yes Readmission Within the Past 30 Days Yes or No: Yes Date of First Admission Date of 1st Admission: 08/18/24 Date of this Admission Date of Admission: 08/27/24 This admission was: Through ED Office Visit Since 1st Admission Have you seen your PCP in the office since discharge?: No Had an appointment Been Scheduled?: Yes Date of Scheduled Appointment: 09/07/24 Speicalist Appointments Have you seen any other specialist since your 1st Admission?: No I. Interview patient and/or Family Difficulty reaching your doctor or getting an office appt?: No Have you had trouble purchasing/ or taking medication?: No Have you had trouble with getting meals at home?: No Did you feel ready for discharge when you left the last time: Yes Were services received that you thought were set up on disch: Yes What services were received?: HH RN Did you call your physician beore you came to the ED?: No How do you think you became sick enough to come back?: Mani stated that he was sneezing multiple times, and later noticed that his abdominal wound from surgery had opened. He reported that HH was at his house for his dressing change, and they sent him to the ED for the open wound. If the patient had a VNA ordered Did the patient have a VNA order?: Yes Did you call the VNA before you came?: Yes Did the VNA tell you to come to the hospital?: Yes Do you know if the VNA called your physician?: No ED visits How many ED visits in the past 12 months: 2 Assessment for Readmission Summary of readmission circumstances, based upon interviews: Mani was discharged on 08/24/24 from [facility] and returned on 08/27/24 due to abdominal wound dehiscence. He stated that he was sneezing a lot prior to his dressing change, and when HH took down his dressing, they advised that he go to the ED for further evaluation. He was taken to the OR for a washout of his wound. He is feeling good today, and anticipates discharge, likely tomorrow. Anticipated HH Services Anticipated HH Services at Discharge [facility], [facility] Anticipated Date of Discharge: 08/29/24. Following Provider: Andrea Kaiser.
[2024-08-28] MEDS: Enoxaparin 40 MG/0.4 ML SYR SC (19:45)
[2024-08-28] MEDS: rOPINIRole 1 MG TAB 2 MG PO (19:46)
[2024-08-29] MEDS: Acetaminophen 500 MG TAB 1000 MG PO (08:02)
[2024-08-29] MEDS: metFORMIN C.R. 500 MG TABCR PO (08:03)
[2024-08-29] MEDS: amLODIPine 5 MG TAB PO (08:03)
[2024-08-29] MEDS: Omeprazole 20 MG CAPCR PO (08:03)
[2024-08-29] MEDS: Aspirin E.C. 81 MG TABEC PO (08:03)
[2024-08-29] MEDS: Rosuvastatin 20 MG TAB 40 MG PO (08:03)
[2024-08-29] MEDS: Furosemide 20 MG TAB PO (08:03)
[2024-08-29] MEDS: Cyanocobalamin 500 MCG TAB 250 MCG PO (08:03)
[2024-08-29] MEDS: Normal Saline Flush 10 ML SYR IVP (08:04)
--- NOTE | 2024-08-29 09:28 | W.PM.DS.N ---
Date of service: 08/29/24 Time of Service: 09:28 DS: Diagnosis Discharge Diagnosis (1) Abdominal wound dehiscence: Status: Acute Asessment and Plan: dicharge home with wet to dry dressing changes and VNA. Outpatient follow up Discharge Plan Disposition Patient Disposition: Home W/Home Health Services Condition: Improving Discharge Details Reason For Visit: Open wound from surgery Admit Date/Time: 08/27/24 16:10 Admit Provider: Glenn Castillo Attending Provider: Glenn Castillo Primary Care Provider: Andrea Kaiser Hospital Course Hospital Course: Mani was admitted for complications from his surgical wound. He undwent washout and packing of the previous incision. Microbiology showed rare organisms and the wound appeared clean after wet to dry guaze packing was inaitiated. He was discharged home with visiting nurse care and out patient follow up Home Meds and New Rx's Prescriptions: Continued amlodipine 5 mg tablet 5 mg PO DAILY ropinirole 2 mg tablet 2 mg PO DAILY omeprazole 20 mg capsule,delayed release(DR/EC) 20 mg PO DAILY rosuvastatin 40 mg tablet 40 mg PO DAILY furosemide 20 mg tablet 20 mg PO DAILY cyanocobalamin (vitamin B-12) [Vitamin B-12] 250 mcg tablet 250 mcg PO DAILY ferrous gluconate 324 mg (38 mg iron) tablet 324 mg PO DAILY Patient Comments: M-W-F metformin 500 mg tablet extended release 24 hr 500 mg PO BID naproxen [EC-Naprosyn] 375 mg tablet,delayed release (DR/EC) 375 mg PO BID PRN nicotine (polacrilex) 2 mg gum 2 mg PO Q2H PRN sildenafil 50 mg tablet 50 mg PO ONCE PRN Rx Instructions: administer 30 minutes to 4 hours before activity aspirin [Aspir-Low] 81 mg Tablet,Delayed Release (Dr/Ec) 81 mg PO DAILY Discharge Instructions Additional Instructions: Mani, I hope you make a nice recovery as you transition home. As we discussed, you had a complication from a broken suture on your surgical site. This was washed out in the operating room and although there is a little bit of bacteria in the wound, it does not appear infected from a clinical perspective. Importantly, the fascia (which is the tough layer that hold things inside) is intact and looks ok at this time. We are going to trial basic wound care using daily changes with clean guaze. So far, it looks like it is working well. This will take quite some time for the wound to close up, but we will help you in the days and weeks to come. The idea is for this wound to heal up from the bottom to the top, slowly pushing out anything that accumulates in the wound bed. I wouldlike you to check your temperature once in the morning and once in the evening and any time through the day if you feel like you have a fever. Please call the office (or the material control specialist surgeon afterhours) if your temperature exceeds 100, or if you need anything at all. I will have the office call you tomorrow to check up and schedule a follow up visit. I also encourage you to use a protein supplement such as boost or ensure to help give your body the fuel it needs to heal the wound. Activity:: no heavy lifting Equipment/Supplies:: No Equipment Needed Diet:: As Tolerated DS: Summary Time Spent with Patient providing and/or coordinating discharge services: Less than 30 minutes Status at Discharge Functional status at discharge: independent ambulation Overall status at discharge: patient is progressing back to baseline Mental Status: mental status grossly normal Speech and Movement: speech and movement normal Mood: congruent mood Affect: normal affect Quality:SDOH Health Related Social Needs: No Data to Display Exam GI Other: The wound is clean and the fascia is intact. Some granulation tissue is starting to form. Psych Mental Status: mental status grossly normal Speech and Movement: speech and movement normal Mood: congruent mood Affect: normal affect DS: Data Vitals/I&O Vitals and I&O: Vital Signs Temperature 97.7 F 08/28/24 15:02 Temperature Source Tympanic 08/28/24 15:02 Pulse 65 08/28/24 15:02 Pulse Rhythm Regular 08/27/24 17:18 Pulse 61 08/27/24 16:17 Respiratory Rate 18 08/28/24 15:02 Respiratory Effort Normal, Non-Labored 08/27/24 17:18 Respiratory Depth Normal 08/27/24 17:18 Respiratory Pattern Normal 08/27/24 17:18 Blood Pressure 122/71 08/28/24 15:02 Blood Pressure Mean 64 08/27/24 16:17 Blood Pressure Position Sitting 08/27/24 13:23 Pulse Oximetry 98 08/28/24 15:02 Respiratory End-tidal CO2 31 08/27/24 16:17 Oxygen Delivery Method Room Air 08/28/24 15:02 Oxygen Flow Rate 0 08/28/24 15:02 Pain Level 4 08/29/24 08:02 Comment pt requested to be left alone if asleep at Q shift vitals. nurse notified 08/29/24 02:42 Comment left arm 08/27/24 12:52 Intake & Output 08/28/24 08/28/24 08/29/24 11:59 23:59 11:59 Intake Total 120 / 130 10 / 130 Output Total 350 / 350 Balance -230 / -220 10 / -220 Intake: IV Oral 120 / 120 Output: Urine 200 / 200 Stool 150 / 150 Other: Urine Color Yellow Urine Appearance Clear Comment pt voided in toilet, not measured Data Completed and Pending Labs on day of discharge: 08/27/24 15:34 Abdomen Anaerobic Culture - Pending 08/27/24 15:34 Abdomen Anaerobic Culture - Pending Preliminary micro results at discharge 08/27/24 15:34 Surgical Culture - Preliminary Abdomen Gram positive korina 08/27/24 15:34 Surgical Culture - Preliminary Abdomen Gram positive korina 08/27/24 15:34 Anaerobic Culture - Pending Abdomen 08/27/24 15:34 Anaerobic Culture - Pending Abdomen PFSH All Active Problems Abdominal wound dehiscence (Acute) Pacemaker (Acute) Colostomy in place (Chronic) Medical History DVT prophylaxis History of coronary artery disease Perforation of sigmoid colon due to diverticulitis Hypomagnesemia Hyperkalemia KEIKO (acute kidney injury) Restless leg syndrome GERD (gastroesophageal reflux disease) History of congestive heart failure Hypercholesteremia Tobacco abuse Diabetes Hypertension Kidney stone on left side Surgical History S/P cardiac catheterization no stents S/P placement of cardiac pacemaker History of back surgery Social History Smoking/Tobacco Use Status: Former Tobacco Use Smoking risk assessment performed?: Yes Alcohol Intake: former Year quit: 2023 Drug use: Never Substance use type: does not use Housing: house Do you feel safe at home: Yes Do you feel safe in your relationship?: Yes Time Spent with Patient Time Spent with Patient: <45 minutes Time was spent: preparing to see the patient(eg.review tests), referring, communicating with other health out of school hours care worker, indepentently interpreting results and counseling the patient
--- NOTE | 2024-08-29 09:29 | PDOC.HHF2F_ITS ---
Home Health Referral Home Health Orders Clinical synopsis of why skilled professionals are needed: Mani underwent sixto's procdure for perforated diverticulitis. We was already set up for Friday, Friday and Friday VNA for his new colostomy. A suture on his surgical site broke and he dehisced part of the incision. The wound was washed out and the fascia is intact.He was transitioned to wet to dry wound packing, with will require daily changes. His is hospitalized and unable to assist him with wound care, which he cannot perform himself. VNA should be resumed on discharge and increased from three times per week to daily He needs the following wound care daily: Removal of packing, gentle irrigation with saline solution and re-packing of midline wound with moistened sterile kerlex gauze. ABD placed on top and secured with tape. Physician should be notified of any sign of infection or any contamination of the wound from the colostomy. Medical diagnosis necessitation home health referral: Open surgical wound Registered Nurse: Check all that apply Instruct on new or changed medication(s)/assess compliance: Ordered Instruct on ostomy care: Ordered Assess for exacerbation of medical condition, instruct patient/caregivers on signs and symptoms to report for early detection: Ordered Wire Annealer: Assist with community resources: Ordered Home Bound Status Patient has a condition such that leaving home is medically contraindicated ( Describe): New colostomy; taxing effort for him to leave the home. Hospitalized family member Encounter Date and Reason: I certify that a FTF encounter for this patient was performed on August 29, 2024 and that such encounter was related to the primary reason the patient requires home health services. The encounter was conducted in the following [facility] er: * By me as the certifying physician, CONTACT LENS FITTER, PA or * By an inpatient physician, CONTACT LENS FITTER or PA during an inpatient stay who communicated findings to me, Certification And Authentication I certify that I composed the above information based on my clinical judgment relating to this patient's medical condition and, if applicable, clinical findings communicated to me by the NPP or inpatient physician who performed the FTF encounter. Name of Provider that will be monitoring home health services: Glenn Castillo
--- NOTE | 2024-08-29 09:49 | W.PM.PROGNOT ---
Date of Service Date of service: 08/29/24 Time of Service: 09:50 Assessment and Plan Assessment and plan (1) Abdominal wound dehiscence: Status: Acute Assessment and plan: I think Mani is stable to be discharged home with ongoing wet to dry dressing changes. We will ammend his VNA to help accommodate that. I'll follow up on the micro as an outpatient, but I remain optimistic that this will heal without the need for antibiotics. Subjective Subjective Interval history since last seen: Mani is a bit frustrated this morning, but overall feels ok. The colostomy deviceleaking a bit close to the wound,but dressings were not soiled. Pain has been controlled and he is tolerating dressing changes with some mild serosanguinous drainage. Micor this AM is rare gram positive growth. Exam GI Other: The wound is clean and there are no clear signs of infection. There is not erythema or purulance. Wound is not malodorous. There are focal points of granulation starting. Objective Last Vital Signs Temp 97.7 F 08/28/24 15:02 Pulse 65 08/28/24 15:02 Resp 18 08/28/24 15:02 BP 122/71 08/28/24 15:02 Pulse Ox 98 08/28/24 15:02 Time Spent with Patient Time Spent with Patient: <25 minutes Time was spent: preparing to see the patient(eg.review tests), referring, communicating with other health health care marketing specialist, indepentently interpreting results and counseling the patient
[2024-08-29 10:16] VITALS: BP 135/74; PULSE 73; RESP 18; TEMP 36.5; O2SAT 97
--- NOTE | 2024-08-29 15:23 | PDOC.CMDIS ---
Date of service: 08/29/24 Time of Service: 15:24 LACE Index Scoring Tool Questions: Length of Stay (in days): 2 Was the patient admitted via the E.D.?: Yes E.D. Visits: 2 Answers: Total Score: 7 Risk of Readmission: Low Risk Care Management Discharge Plan Reason for Hospitalization: Wound dehiscence Discharge Plan: Mani returned home today with a resumption of HH orders; his wound care was changed from MWF to daily dressing changes, which CM communicated to [facility]. He was transported home via private vehicle by family. He will follow up with surgical services and his discharge plan of care. He was happy to be going home. Patient/Family Education Needs: Review discharge instructions and limitations, discussion of self care needs including ask me three. Services Needed at Discharge: Home Health Care Services (resumption of RN) [facility] Health Related Social Needs: No Data to Display
== END 2024-08-29 12:35 | disposition home health service (06) ==
LOC: ER 16:15 → MS 16:43
PROVIDERS: Family Medicine; Admitting Provider Surgery; Emergency Provider Emergency Medicine; PCP Physician Assistant Medical; Visit Provider Surgery
PROC: (CPT 12021; principal; 2024-08-27 14:30)
DX: T81.321A Disruption or dehiscence of closure of internal operation (surgical) wound of abdominal wall muscle or fascia, initial encounter (principal); Z79.82 Long term (current) use of aspirin; Z79.84 Long term (current) use of oral hypoglycemic drugs; I25.10 Atherosclerotic heart disease of native coronary artery without angina pectoris; E83.42 Hypomagnesemia; G25.81 Restless legs syndrome; K21.9 Gastro-esophageal reflux disease without esophagitis; E78.00 Pure hypercholesterolemia, unspecified; E11.9 Type 2 diabetes mellitus without complications; Z95.0 Presence of cardiac pacemaker; Z93.3 Colostomy status; E87.5 Hyperkalemia; N17.9 Acute kidney failure, unspecified
CPT/HCPCS: 12021; 36415; 80053; 87077; 87637; 93005; 96372; 99285; J1650; 85025; 85610; 87070; 87075; 87186; 87205; 93010; G0378; J0665; J2003; J2250; J2405; J2704

== ENCOUNTER 2024-12-28 08:42 | Day surgery (SDC) | payer OTHER, SELFPAY ==
--- NOTE | 2024-12-27 20:07 | W.PM.DSUDISC ---
Date of service: 12/28/24 Discharge Plan Disposition Patient Disposition: Home Condition: Good Discharge Details Reason For Visit: colonoscopy Attending Provider: Glenn Castillo Primary Care Provider: Andrea Kaiser Home Meds and New Rx's Prescriptions: Continued amlodipine 5 mg tablet 5 mg PO DAILY ropinirole 2 mg tablet 2 mg PO DAILY omeprazole 20 mg capsule,delayed release(DR/EC) 20 mg PO DAILY rosuvastatin 40 mg tablet 40 mg PO DAILY furosemide 20 mg tablet 20 mg PO DAILY cyanocobalamin (vitamin B-12) [Vitamin B-12] 250 mcg tablet 250 mcg PO DAILY ferrous gluconate 324 mg (38 mg iron) tablet 324 mg PO DAILY Patient Comments: M-W- metformin 500 mg tablet extended release 24 hr 500 mg PO BID naproxen [EC-Naprosyn] 375 mg tablet,delayed release (DR/EC) 375 mg PO BID PRN nicotine (polacrilex) 2 mg gum 2 mg PO Q2H PRN sildenafil 50 mg tablet 50 mg PO ONCE PRN Rx Instructions: administer 30 minutes to 4 hours before activity aspirin [Aspir-Low] 81 mg Tablet,Delayed Release (Dr/Ec) 81 mg PO DAILY Discontinued polyethylene glycol 3350 17 gram/dose powder 238 g PO ONCE Qty: 238 0RF Rx Instructions: take per colonoscopy instructions bisacodyl [Dulcolax (bisacodyl)] 5 mg tablet,delayed release (DR/EC) 5 mg PO ONCE Qty: 4 0RF Rx Instructions: take per colonoscopy instructions Discharge Instructions Additional Instructions: Mani, it was good seeing you today, and hope you are comfortable through the procedure. Things went very smoothly. Everything upstream of your colostomy looks great. There is just a small amount of diverticulosis on the underside of the colostomy, that will be resected at the time of your reversal. So this will not be an issue at all. The target for reconnection also looks very good. There is certainly plenty of length, and we should be able to get everything reestablished without much issue. As we have talked about before, I will have the office give you a call in the next few days to work on scheduling your colostomy reversal. You will have to do another bowel prep similar to this colonoscopy, with the addition of some antibiotics, in the office can make those arrangements. On the day of your surgery, you will be admitted to the hospital. The average length of stay is about 4 days for this procedure. I am more than happy to go over the details with you on the telephone if that is helpful. If you need anything at all, please do not hesitate to call at any time. 1. If tolerated, consume a soft, low fiber diet for 1-2 days. [address] Do not drive, drink alcohol, operate machinery, make critical decisions, or do activities that require coordination or balance for 24 hours. 3. Because air was put into your colon during the procedure, expelling air from your rectum (passing gas or farting) is normal. 4. You may not have a bowel movement for 1-3 days because of the colonoscopy prep. This is normal. 5. Go directly to the emergency room if you notice any of the following: Develop chills (warm to touch), or if you have a thermometer and your temperature is above 101 Difficulty breathing or difficultly swallowing Persistent vomiting Severe abdominal pain, other than gas cramps Severe chest pain Black, tarry stools Any bleeding ? exceeding one tablespoon 6. Call your physician if the site where your intravenous was started becomes red, swollen, painful, and warm to touch. 7. Your physician has reviewed your pre-procedure medications. Please continue to take those medications as previously ordered. You will be given specific information/education regarding any changes to your medications before leaving. Activity:: Activity as Tolerated Diet:: As Tolerated Discharge Orders Discharge Orders: Discharge Order (Routine); Ordered 12/27/24 Ordered By: Glenn Castillo DS: Diagnosis Discharge Diagnosis (1) Colostomy in place: Status: Chronic Asessment and Plan: Diverticulosis; otherwise normal colonoscopy.
--- NOTE | 2024-12-27 20:08 | COLE_ITS ---
Date of service: 12/28/24 Time of Service: 10:07 Colonoscopy Report Date of procedure: 12/28/24 Pre-op diagnosis general: diverticulosis Post-op diagnosis procedure note: same Procedure: colonoscopy Surgeon: Glenn Castillo Anesthesia Type: General:No Airway Pathology: none sent Complications: None Disposition: same day Indications: Mani is a 74 year old man with a colostomy after presumed perforated diverticulitis. He is undergoing colonoscopy anticipating colostomy reversal. Prep: Miralax/Dulcolax Procedure Start Time: 09:52 Procedure End Time: 10:01 Retraction Time: 6 Findings: Short segment diverticulosis immediately below the skin level colostomy. Mild diversion proctitis Procedure Description: After the induction of anesthesia, and with Matteo in the supine position, I began by performing a digital exam of the colostomy. Everything felt normal and healthy.? I then began advancing a colonoscope by way of the colostomy towards the cecum. Quality of the prep was excellent. The appendiceal orifice and ileocecal valve were identified, and then I began slowly withdrawing the colonoscope. All of the mucosa was totally normal and healthy appearing. I did not appreciate any polyps. There are just a few diverticula below the skin leve l colostomy. This extends for about 5 cm. The camera was removed, and the colostomy device was reapplied. Next, I performed a digital rectal exam. This felt normal. Colonoscope was then advanced into the rectal vault. There was some old retained mucus that was irrigated clean. There are some evidence of mild diversion proctitis, but everything else appears normal up to the staple line. The staple line measures approximately 25 cm beyond the anal verge, there is a short segment of diverticulosis here as well. The camera was slowly withdrawn, no other pathology was appreciated. [place] Bowel Prep [place] Bowel Prep Right Colon: 3 Left Colon: 2 Transverse Colon: 3 Total Score: 8
--- NOTE | 2024-12-28 06:13 | ANES.PREOP_ITS ---
General Info Date of Service Date Performed: 12/28/24 Height: 6 ft Weight: 99.79 kg Body Mass Index (BMI): 29.8 Surgical Procedure: Operation Date: 12/28/24 10:20 Proposed Procedure Side Surgeon p Colonoscopy through Colostomy and Proctoscopy Glenn Castillo MD Meds Allergies and Home Medications Allergies Allergy/AdvReac Type Severity Reaction Status Date / Time lidocaine Allergy Severe Other (See Verified 12/28/24 09:08 Comment) latex Allergy Mild Skin Rash Verified 12/28/24 09:08 Home Medication ?Medication ?Instructions ?Recorded aspirin 81 mg tablet,delayed 81 mg PO DAILY 11/18/18 release (Aspir-Low) amlodipine 5 mg tablet 5 mg PO DAILY 09/08/23 omeprazole 20 mg capsule,delayed 20 mg PO DAILY 09/08/23 release ropinirole 2 mg tablet 2 mg PO DAILY 09/08/23 rosuvastatin 40 mg tablet 40 mg PO DAILY 09/08/23 cyanocobalamin (vitamin B-12) 250 250 mcg PO DAILY 02/06/24 mcg tablet (Vitamin B-12) furosemide 20 mg tablet 20 mg PO DAILY 02/06/24 ferrous gluconate 324 mg (38 mg 324 mg PO DAILY 08/18/24 iron) tablet metformin 500 mg tablet,extended 500 mg PO BID 08/18/24 release 24 hr naproxen 375 mg tablet,delayed 375 mg PO BID PRN 08/18/24 release (EC-Naprosyn) nicotine (polacrilex) 2 mg gum 2 mg PO Q2H PRN 08/18/24 sildenafil 50 mg tablet 50 mg PO ONCE PRN 08/18/24 Current Visit Medications: Current Medications Generic Name Dose Route Start Last Admin Trade Name Freq PRN Reason Stop Dose Admin Ringer's Solution 1,000 mls @ 80 mls/hr 12/28/24 06:00 IV 12/28/24 23:59 INFUSION [facility] IV Miscellaneous Supplies 1 each 12/28/24 06:00 Iv Access IV 12/28/24 23:59 DIRECTED [facility] Ondansetron HCl 4 mg 12/27/24 20:10 Ondansetron 4 Mg/2 Ml Vial IVP 01/26/25 20:09 Q4H PRN PRN Nausea / Vomiting Sodium Chloride 0 ml 12/28/24 06:00 Normal Saline Flush 10 Ml Syr IV 12/28/24 23:59 PRN PRN Sodium Chloride 0 ml 12/28/24 06:00 Normal Saline 10 Ml Vial IJ 12/28/24 23:59 DIRECTED PRN Sterile Water 0 ml 12/28/24 06:00 Water,Injection,Sterile 10 Ml Vial IJ 12/28/24 23:59 DIRECTED PRN PFSH Active Problems Active Problems: Problem Status Onset Code Abdominal wound dehiscence Acute T81.321A Pacemaker Acute Z95.[address] Chronic Z93.3 Medical History Medical History DVT prophylaxis History of coronary artery disease Perforation of sigmoid colon due to diverticulitis Hypomagnesemia Hyperkalemia KEIKO (acute kidney injury) Restless leg syndrome GERD (gastroesophageal reflux disease) History of congestive heart failure Hypercholesteremia Tobacco abuse Diabetes Hypertension Kidney stone on left side Surgical History Surgical History S/P cardiac catheterization no stents S/P placement of cardiac pacemaker History of back surgery Tobacco Smoking/Tobacco Use Status: Former Tobacco Use Passive smoking exposure: Yes Alcohol Alcohol Intake: former Year quit: 2023 Substance Use Substance use: Never Substance use type: does not use Vital Signs and Lab Results Vital Signs Most Recent Vital Signs in EMR: Temp Pulse Resp BP Pulse Ox 36.5 C 80 16 146/87 H 95 12/28/24 09:00 12/28/24 09:00 12/28/24 09:00 12/28/24 09:00 12/28/24 09:00 Lab Results Blood Type / Crossmatch: No Data to Display Complete Blood Count: No Data to Display Complete Metabolic Panel: No Data to Display Liver Function Panel: No Data to Display Coagulation Panel: No Data to Display Cardiac Panel: No Data to Display Arterial Blood Gas: No Data to Display Venous Blood Gas: No Data to Display Pancreas Panel: No Data to Display Thyroid Panel: No Data to Display Infectious Disease: No Data to Display Blood Cultures: No Data to Display Toxicology Panel: No Data to Display Anesthesia Assessment and Plan Anesthesia History Personal History: No History of Anesthesia Complications Family History: No Family History of Anesthesia Complications Exercise Tolerance Exercise Tolerance: Metabolic Equivalents>4 Cardiac & Pulmonary Exam Cardiac Exam: Normal S1/S2 Heart Sounds Pulmonary Exam: Clear Bilateral Breath Sounds Implantable Cardiac Device Does patient have a Pacemaker or an ICD?: Yes Device Management Recruiter:: [employer] Reason for Placement:: Per pt. heart failure Date of Last Device Interrogation:: 11/09/24 per pt Airway Exam Known Difficult Airway: No Mallampati Class: 1 Mouth Opening: Normal (> 3cm) Thyromental Distance: Greater than 3 cm Neck Range of Motion: Full ROM Neck Circumference: Normal Teeth Condition: Normal Dentition ASA Classification ASA Score: ASA 3 Emergency Case?: No NPO Status NPO Status: NPO Clears >2 hours, Solids >8 hours Anesthesia Plan Resuscitation Status: Full Code Anesthesia Technique: General Anesthesia Airway Planned: Natural Airway Monitors Used: Standard Monitors Preoperative Comments:: 74 yo male for colo via stoma. Sig PMHx: CHF, CAD, HTN, pacer, GERD, KEIKO, RLS, DM. former smoker. [facility] He states that he has continued follow up for his pacer/heart and that he is doing well. ECG: AV paced. Previous Anes: - debridement abd wall, midaz, prop, no issues. - exp lap, RSI, glide 3 grade 1, no issues.
[2024-12-28 06:20] VITALS: BMI 29.8
[2024-12-28 09:00] VITALS: BP 146/87; PULSE 80; RESP 16; TEMP 36.5; O2SAT 95
[2024-12-28] MEDS: Normal Saline 1,000 ML 80 ML IV (09:30)
[2024-12-28 10:08] VITALS: BP 111/73; PULSE 61; RESP 18; TEMP 36; O2SAT 97
--- NOTE | 2024-12-28 10:24 | W.ANESPOSTOP ---
Postoperative Evaluation Date, Time and Location Date Performed: 12/28/24 Time Performed: 10:24 Patient Location: Day Surgery Unit Vital Signs Most Recent Imported Vital Signs: Most Recent Vital Signs Temp Pulse Resp BP Pulse Ox 36 C L 61 18 111/73 97 12/28/24 10:08 12/28/24 10:08 12/28/24 10:08 12/28/24 10:08 12/28/24 10:08 Pain Score Most Recent Pain Score: Most Recent Pain Score Pain Level 0 12/28/24 10:08 Assessment Mental Status: Awake (Alert & Oriented to Patient Baseline) Airway and Respiratory Function: Patent airway with normal (patient baseline) respiratory exam Cardiovascular Function: Hemodynamically Stable Hydration Status: Adequately Hydrated Nausea & Vomiting: No Nausea or Vomiting Pain: Pt. Denies Any Pain Peripheral Nerve Block: Patient did not receive a nerve block
[2024-12-28 10:35] VITALS: BP 121/73; PULSE 63; RESP 17; TEMP 36.1; O2SAT 99
== END 2024-12-28 10:48 | disposition home or self-care (01) ==
LOC: SUR 08:42
PROVIDERS: PCP Physician Assistant Medical; Visit Provider Surgery
PROC: 0DJD8ZZ Inspection of Lower Intestinal Tract, Via Natural or Artificial Opening Endoscopic (ICD-10-PCS; CPT 45378; principal; 2024-12-28 10:15)
DX: Z93.3 Colostomy status (principal); K57.30 Diverticulosis of large intestine without perforation or abscess without bleeding
CPT/HCPCS: 45378; J2704

== ENCOUNTER 2025-02-15 08:51 | Inpatient (IN) | payer OTHER, SELFPAY ==
--- NOTE | 2025-02-14 17:07 | W.PREOPHP ---
Assessment and Plan Assessment and plan (1) Colostomy in place: Status: Chronic Assessment and plan: We reviewed the plan for laparoscopic colostomy reversal today, the risks and the benefits of the procedure. I think Mani is a very good understanding of all this. He is able to provide informed consent, and we can proceed with surgery as planned History of Present Illness History of Present Illness Chief Complaint: Colostomy Narrative: Mani is 74 years old. He underwent Patel's procedure for perforated diverticultitis. He is undergoing reversal of his colostomy for restitution of GI continuity. PFSH All Active Problems Abdominal wound dehiscence (Acute) Pacemaker (Acute) Colostomy in place (Chronic) Medical History DVT prophylaxis History of coronary artery disease Perforation of sigmoid colon due to diverticulitis Hypomagnesemia Hyperkalemia KEIKO (acute kidney injury) Restless leg syndrome GERD (gastroesophageal reflux disease) History of congestive heart failure Hypercholesteremia Tobacco abuse Diabetes Hypertension Kidney stone on left side Surgical History History of colonoscopy (~12/2024) S/P cardiac catheterization no stents S/P placement of cardiac pacemaker History of back surgery Social History Smoking/Tobacco Use Status: Current every day Tobacco Type: cigarettes Smoking risk assessment performed?: Yes Alcohol Intake: former Year quit: 2023 Drug use: Never Substance use type: does not use Housing: house Additional Social history: [facility] Meds Allergies and Home Medications Allergies Allergy/AdvReac Type Severity Reaction Status Date / Time lidocaine Allergy Severe Other (See Verified 02/15/25 09:15 Comment) latex Allergy Mild Skin Rash Verified 02/15/25 09:15 Home Medications ?Medication ?Instructions ?Recorded ?Confirmed ?Type aspirin 81 mg tablet,delayed 81 mg PO DAILY 11/18/18 02/15/25 History release (Aspir-Low) amlodipine 5 mg tablet 5 mg PO DAILY 09/08/23 02/15/25 History omeprazole 20 mg capsule,delayed 20 mg PO DAILY 09/08/23 02/15/25 History release ropinirole 2 mg tablet 2 mg PO DAILY 09/08/23 02/15/25 History rosuvastatin 40 mg tablet 40 mg PO DAILY 09/08/23 02/15/25 History cyanocobalamin (vitamin B-12) 250 250 mcg PO DAILY 02/06/24 02/15/25 History mcg tablet (Vitamin B-12) furosemide 20 mg tablet 20 mg PO DAILY 02/06/24 02/15/25 History ferrous gluconate 324 mg (38 mg 324 mg PO DAILY 08/18/24 02/15/25 History iron) tablet metformin 500 mg tablet,extended 500 mg PO BID 08/18/24 02/15/25 History release 24 hr naproxen 375 mg tablet,delayed 375 mg PO BID PRN 08/18/24 02/14/25 History release (EC-Naprosyn) nicotine (polacrilex) 2 mg gum 2 mg PO Q2H PRN 08/18/24 02/14/25 History sildenafil 50 mg tablet 50 mg PO ONCE PRN 08/18/24 02/14/25 History bisacodyl 5 mg tablet,delayed 5 mg PO ONCE #8 tabs 02/11/25 02/15/25 Rx release (Dulcolax (bisacodyl)) metronidazole 500 mg tablet 500 mg PO .COMPLEX #8 tabs 02/11/25 02/15/25 Rx neomycin 500 mg tablet 500 mg PO .COMPLEX #8 tabs 02/11/25 02/15/25 Rx ondansetron 8 mg disintegrating 8 mg PO .COMPLEX #3 tabs 02/11/25 02/15/25 Rx tablet polyethylene glycol 3350 17 17 g PO ONCE #238 grams 02/11/25 02/15/25 Rx gram/dose oral powder Exam Const General: cooperative, healthy appearing and not in acute distress Neck Neck: normal visual inspection, no lymphadenopathy and supple Resp Effort & Inspection: normal respiratory effort Auscultation: clear to auscultation bilaterally Cardio Jugular venous pressure: no JVD Rate: regular rate Rhythm: regular rhythm Heart Sounds: S1 normal and S2 normal GI Inspection: normal to inspection Palpation: soft, no guarding, no hernias and nontender Percussion: normal to percussion Auscultation: normal bowel sounds Other: Healthy appearing colostomy, with midline granulation tissue Neuro General: patient alert, patient awake and patient oriented x3 Psych Appearance: grossly normal
--- NOTE | 2025-02-14 20:09 | W.PM.OP ---
Operative Note Operative Note PRE-OP DIAGNOSIS: Colostomy POST-OP DIAGNOSIS: same PROCEDURE: Laproscopic reversal of colostomy with colorectal anastimosis. SURGEON: Glenn Castillo OCEANOGRAPHY TEACHER: Shanda Baldwin ANESTHESIA TYPE: General LMA/ETT Refer to Anesthesia Record ESTIMATED BLOOD LOSS: 100 PATHOLOGY: none sent COMPLICATIONS: None Patient was transported to: PACU Patient's condition: stable Indications: Mani is a 74-year-old male who underwent Saldana's sigmoid colectomy for perforated diverticulitis. He needs reversal of his colostomy for restitution of GI continuity Procedure Description: I met with Mani and his in the preoperative area, and we reviewed the plan for surgery. He affirmed his informed consent. We then moved back to the operating room. Mani was assisted onto the OR table, and great care was taken to ensure that he was padded and supported appropriately. General endotracheal anesthesia was initiated. [place] urinary catheter was inserted using standard aseptic technique. His colostomy device was removed, and the site was dressed with sterile gauze and an occlusive dressing. Mani was moved into lithotomy positioning. Attention was paid to the points of contact to make sure that they were well supported and padded. The anterior abdominal wall was then prepped and draped. I started with a small incision above the umbilicus in the midline pneumoperitoneum was established with a 5 mm optical viewing port. The camera was reinserted, and there was no evidence of any trocar injury. There were some adhesions to the anterior abdominal wall mostly in the midline and left lower quadrant. There were few adhesions in the right lower quadrant, but generally it was a clear area for insertion of another 5 mm port. This was done under the viewing of the laparoscope. Next, with the LigaSure device, I began dissecting the adhesions of the greater omentum off the anterior abdominal wall. In the course of doing this, it became evident that there was a large midline ventral hernia, as well as some fascial disruption in the area of the colostomy. Once all of these dissections were freed, the greater omentum was retracted cephalad. Next, I performed bilateral laparoscopic tap blocks with a combination of local anesthetic and Exparel. Mani was then placed in a little bit of Trendelenburg positioning, and some basic dissection was performed to clear off the rectal stump. This was easily identified with the previous sutures. Once the rectal stump was all clear, that appeared to be a suitable target, without any significant need for any more dissection or resection. The tissue was soft, pliable, and there was really no evidence of any active diverticulosis here. Therefore, I turned my attention back to the skin level colostomy. The external dressing was removed, and the colostomy was sutured closed with a 2-0 silk suture. I made a circular incision around the stoma incorporating the mucocutaneous border. I dissected down into the subcutaneous tissues, and then carefully dissected the colostomy away from the surrounding soft tissues. It was freed up from the fascial edge. The end portion of this was excised with a MARY stapler to minimize any spillage. The colostomy was delivered back into the peritoneal cavity, and a wound protection device and GelPort was applied to the old stoma site. Pneumoperitoneum was reestablished, and I then mobilized the left colon up and around the splenic flexure to ensure a tension-free anastomosis. This dissection was performed from lateral to medial with the LigaSure. Great care was taken to avoid the retroperitoneum in an effort to minimize any retroperitoneal or ureteral injuries. Once the descending colon was mobilized, and was able to reach the rectal stump the GelPort was removed, and the end of the descending colon was brought back up into the anterior abdominal wall. The staple line was excised, and a 31 mm EEA anvil was inserted into the distal descending colon. The quality of the tissue was excellent. It was soft. It appeared well-perfused. There was no evidence of any active diverticulosis. The anvil was pursestring in place. It was dropped back down into the peritoneal cavity, and the GelPort was reaffixed. I then turned my attention down to the peritoneum. Digital rectal exam was performed. This was normal. The rectal stump was sounded with a 28 mm dilator. This brought the stump up into the operative field quite nicely. This was followed by 31 mm dilator prior to advancing the 31 mm EEA stapler up into the rectal stump. Under the vision of the scope, the spike was advanced, and the descending colon anvil was affixed taking great care to ensure that there was no twist in the mesentery. The distal descending segment was then brought down onto the rectal stump as the stapler was fired according to the manufactures instructions. The stapler was released, and removed. There were 2 healthy appearing complete colorectal anastomotic rings. The pelvis was then filled with saline, and a standard colonoscope was inserted into the rectum while viewing with the laparoscope. There was no evidence of any air leak. The anastomosis was widely patent and healthy appearing, I could traverse it with ease. There was no bleeding. There was no evidence of any diverticulosis in the area. The anastomosis measures approximately 20 cm from the anus. The rectum was then emptied, and the camera was removed. Clean gowns and gloves were donned, and I turned my attention back to the anterior abdominal wall. The original plan for surgery involves excision of the anterior abdominal wall skin wound and reclosure of the skin and subcutaneous tissues. However, it is clear that there is a fascial defect in the midline along the length of the incision. This will certainly require implantation of a permanent mesh for definitive treatment if Mani desires to do that. Therefore, in an effort to minimize any other soft tissue injuries, I simply performed some minimal debridement of the overlying skin which was clean and healthy. Hopefully, this will help promote epithelialization over the small amount of remaining granulation tissue. Certainly, optimal treatment of this hernia defect will require implantation of a permanent mesh, and given the nature of this operation, I felt like that was a poor decision at this point. Next, the old colostomy site was examined. Small amount of soft tissue was debrided clean, in an effort to identify the fascial edge. Here, the fascia was reapproximated top to bottom with 2-0 PDS sutures. The surrounding muscle was gently reapproximated, and local anesthetic was instilled into the skin and subcutaneous tissues and muscles. 2-0 silk suture was used to help minimize the overlying soft tissue defect and a pursestring faction, and iodoform packing was used at the skin level. The remaining 5 mm ports were all removed, and the skin was irrigated and closed with subcuticular stitches. Band-Aids were applied, and Mani was prepared for extubation. During removal of the drapes, it became apparent that the left lower extremity was slightly inwardly rotated. There were no obvious musculoskeletal deformities, and we can certainly reassess Mani's hip as he wakes up and can provide more detail response to exam. Mani was then awoken from the anesthetic, extubated, and transferred to the recovery unit. Date of Procedure: 02/15/25
[2025-02-15] VITALS (39 sets, daily range): BP systolic 108–151; BP diastolic 61–82; PULSE 56–79; RESP 12–24; TEMP 36–36.7; O2SAT 90–99; BMI 28.5
[2025-02-15] MEDS: Lactated Ringers 1,000 ML 80 ML IV ×2 (09:34→22:57)
[2025-02-15] MEDS: Gabapentin 300 MG CAP PO (09:38)
[2025-02-15] MEDS: Celecoxib 200 MG CAP PO (09:38)
--- NOTE | 2025-02-15 09:47 | W.ANESPRE ---
General Info Date of Service Date Performed: 02/15/25 Height: 6 ft Weight: 95.5 kg Body Mass Index (BMI): 28.5 Surgical Procedure: Operation Date: 02/15/25 09:20 Proposed Procedure Side Surgeon p Colostomy Reversal Laparoscopic Glenn Castillo MD Meds Allergies and Home Medications Allergies Allergy/AdvReac Type Severity Reaction Status Date / Time lidocaine Allergy Severe Other (See Verified 02/15/25 09:15 Comment) latex Allergy Mild Skin Rash Verified 02/15/25 09:15 Home Medication ?Medication ?Instructions ?Recorded aspirin 81 mg tablet,delayed 81 mg PO DAILY 11/18/18 release (Aspir-Low) amlodipine 5 mg tablet 5 mg PO DAILY 09/08/23 omeprazole 20 mg capsule,delayed 20 mg PO DAILY 09/08/23 release ropinirole 2 mg tablet 2 mg PO DAILY 09/08/23 rosuvastatin 40 mg tablet 40 mg PO DAILY 09/08/23 cyanocobalamin (vitamin B-12) 250 250 mcg PO DAILY 02/06/24 mcg tablet (Vitamin B-12) furosemide 20 mg tablet 20 mg PO DAILY 02/06/24 ferrous gluconate 324 mg (38 mg 324 mg PO DAILY 08/18/24 iron) tablet metformin 500 mg tablet,extended 500 mg PO BID 08/18/24 release 24 hr naproxen 375 mg tablet,delayed 375 mg PO BID PRN 08/18/24 release (EC-Naprosyn) nicotine (polacrilex) 2 mg gum 2 mg PO Q2H PRN 08/18/24 sildenafil 50 mg tablet 50 mg PO ONCE PRN 08/18/24 bisacodyl 5 mg tablet,delayed 5 mg PO ONCE #8 tabs 02/11/25 release (Dulcolax (bisacodyl)) metronidazole 500 mg tablet 500 mg PO .COMPLEX #8 tabs 02/11/25 neomycin 500 mg tablet 500 mg PO .COMPLEX #8 tabs 02/11/25 ondansetron 8 mg disintegrating 8 mg PO .COMPLEX #3 tabs 02/11/25 tablet polyethylene glycol 3350 17 17 g PO ONCE #238 grams 02/11/25 gram/dose oral powder Current Visit Medications: Current Medications Generic Name Dose Route Start Last Admin Trade Name Freq PRN Reason Stop Dose Admin Acetaminophen 1,000 mg 02/15/25 06:00 Acetaminophen 500 Mg Tab PO 02/15/25 23:59 PREOP SONIA Celecoxib 200 mg 02/15/25 06:00 02/15/25 09:38 Celecoxib 200 Mg Cap PO 02/15/25 23:59 200 mg PREOP SONIA Administration Gabapentin 300 mg 02/15/25 06:00 02/15/25 09:38 Gabapentin 300 Mg Cap PO 02/15/25 23:59 300 mg PREOP SONIA Administration Ringer's Solution 1,000 mls @ 80 mls/hr 02/15/25 06:00 02/15/25 09:34 IV 02/15/25 23:59 80 mls/hr INFUSION SONIA Administration Cefazolin Sodium/Dextrose 2 gm in 50 mls @ 100 mls/hr 02/15/25 06:00 Ancef Duplex IVPB 02/15/25 23:59 PREOP SONIA IV Miscellaneous Supplies 1 each 02/15/25 06:00 Iv Access IV 02/15/25 23:59 DIRECTED SONIA Sodium Chloride 0 ml 02/15/25 06:00 Normal Saline Flush 10 Ml Syr IV 02/15/25 23:59 PRN PRN Sodium Chloride 0 ml 02/15/25 06:00 Normal Saline 10 Ml Vial IJ 02/15/25 23:59 DIRECTED PRN Sterile Water 0 ml 02/15/25 06:00 Water,Injection,Sterile 10 Ml Vial IJ 02/15/25 23:59 DIRECTED PRN PFSH Active Problems Active Problems: Problem Status Onset Code Abdominal wound dehiscence Acute T81.321A Pacemaker Acute Z95.[address] Chronic Z93.3 Medical History Medical History DVT prophylaxis History of coronary artery disease Perforation of sigmoid colon due to diverticulitis Hypomagnesemia Hyperkalemia KEIKO (acute kidney injury) Restless leg syndrome GERD (gastroesophageal reflux disease) History of congestive heart failure Hypercholesteremia Tobacco abuse Diabetes Hypertension Kidney stone on left side Surgical History Surgical History History of colonoscopy (~12/2024) S/P cardiac catheterization no stents S/P placement of cardiac pacemaker History of back surgery Tobacco Smoking/Tobacco Use Status: Current every day Tobacco Type: cigarettes Passive smoking exposure: Yes Alcohol Alcohol Intake: former Year quit: 2023 Substance Use Substance use: Never Substance use type: does not use Vital Signs and Lab Results Vital Signs Most Recent Vital Signs in EMR: Most Recent Vital Signs Temp Pulse Resp BP Pulse Ox 36.2 C L 79 18 151/82 H 97 02/15/25 09:20 02/15/25 09:20 02/15/25 09:20 02/15/25 09:20 02/15/25 09:20 Point of Care Results Point of Care Results: Finger Stick Blood Glucose 151 02/15/25 09:09 Imaging and Studies Imaging and Studies Study information below may be from another EMR and interpreted by another provider. Please see original notes in EMR for more complete details. EKG Summary: jul 2024 Conclusion AV paced rhythm Anesthesia Assessment and Plan Anesthesia History Personal History: No History of Anesthesia Complications Family History: No Family History of Anesthesia Complications Exercise Tolerance Exercise Tolerance: Metabolic Equivalents>4 Pertinent Negatives Pertinent Negatives: No Symptoms of GERD, No Major Cardiovascular Symptoms or Complaints, No Major Pulmonary Symptoms or Complaints and No History of CVA/TIA Cardiac & Pulmonary Exam Cardiac Exam: Normal S1/S2 Heart Sounds Pulmonary Exam: Clear Bilateral Breath Sounds Implantable Cardiac Device Does patient have a Pacemaker or an ICD?: Yes Device Systems Administration Analyst:: [employer] Reason for Placement:: Hear Failure Date of Last Device Interrogation:: 12/2024-per pt. Airway Exam Known Difficult Airway: No Mallampati Class: 1 Mouth Opening: Normal (> 3cm) Thyromental Distance: Greater than 3 cm Neck Range of Motion: Full ROM Neck Circumference: Normal Teeth Condition: Generalized Poor Dentition (some missing teeth but none loose per pt report ) ASA Classification ASA Score: ASA 3 Emergency Case?: No NPO Status NPO Status: NPO Clears >2 hours, Solids >8 hours Anesthesia Plan Resuscitation Status: Full Code Anesthesia Technique: General Anesthesia Airway Planned: Endotracheal Tube Monitors Used: Standard Monitors Preoperative Comments:: discussed increased risk of adverse airway events d/t smoking
[2025-02-15] MEDS: ceFAZolin 2 GM/50 ML BAG IVPB (10:43)
[2025-02-15] MEDS: Bupivacaine 0.25% Pres-Free 30 ML VIAL (14:22)
[2025-02-15] MEDS: Bupivacaine LIPOSOME/PF 133 MG/10 ML VIAL IJ (14:22)
--- NOTE | 2025-02-15 15:17 | W.ANESPOSTOP ---
Postoperative Evaluation Date, Time and Location Date Performed: 02/15/25 Time Performed: 15:26 Patient Location: PACU Vital Signs Most Recent Imported Vital Signs: Most Recent Vital Signs Temp Pulse Resp BP Pulse Ox 36.1 C L 61 17 133/64 95 02/15/25 15:00 02/15/25 15:11 02/15/25 15:11 02/15/25 15:11 02/15/25 15:11 Pain Score Most Recent Pain Score: Most Recent Pain Score Pain Level 0 02/15/25 15:00 Assessment Mental Status: Arousable with meaningful communication Airway and Respiratory Function: Patent airway with normal (patient baseline) respiratory exam Cardiovascular Function: Hemodynamically Stable Hydration Status: Adequately Hydrated Nausea & Vomiting: No Nausea or Vomiting Pain: Pt. Denies Any Pain Peripheral Nerve Block: Patient did not receive a nerve block
[2025-02-15] MEDS: Heparin 5,000 UNITS/ML VIAL 5000 UNITS SC (16:07)
[2025-02-15] MEDS: ACETAMINOPHEN 1,000 MG/100 ML BAG 400 MG IVPB ×2 (16:11→23:17)
--- NOTE | 2025-02-15 16:59 | W.PC.ACHO ---
Registration Status: ADM IN Primary Language: Preferred Language: Vietnamese Medical / Surgical History (Last Reviewed 02/15/25 @ 09:28 by Annalee Lamas RN) DVT prophylaxis History of coronary artery disease Perforation of sigmoid colon due to diverticulitis Hypomagnesemia Hyperkalemia KEIKO (acute kidney injury) Restless leg syndrome GERD (gastroesophageal reflux disease) History of congestive heart failure Hypercholesteremia Tobacco abuse Diabetes Hypertension Kidney stone on left side (Last Reviewed 02/15/25 @ 09:28 by Annalee Lamas RN) History of colonoscopy (~12/2024) S/P cardiac catheterization S/P placement of cardiac pacemaker History of back surgery Most Recent Vital Signs Temperature 36 C L 02/15/25 16:03 Temperature Source Tympanic 02/15/25 16:03 Pulse 60 02/15/25 16:03 Pulse Rhythm Regular 02/15/25 09:20 Pulse 61 02/15/25 15:31 Respiratory Rate 13 02/15/25 15:31 Respiratory Effort Normal 02/15/25 16:03 Respiratory Depth Normal 02/15/25 16:03 Respiratory Pattern Normal 02/15/25 16:03 Blood Pressure 118/64 02/15/25 16:03 Blood Pressure Mean 82 02/15/25 16:03 Blood Pressure Position Supine 02/15/25 16:03 Pulse Oximetry 94 02/15/25 16:03 Respiratory End-tidal CO2 19 02/15/25 15:31 Oxygen Delivery Method Room Air 02/15/25 16:03 Oxygen Flow Rate 0 02/15/25 16:03 Pain Level 0 02/15/25 16:03 Allergies lidocaine Allergy (Severe, Verified 02/15/25 09:15) Other (See Comment) Likely from Epi, Done fine with bupivacaine latex Allergy (Mild, Verified 02/15/25 09:15) Skin Rash Active Medications Generic Name Dose Route Start Last Admin Trade Name Freq PRN Reason Stop Dose Admin Celecoxib 200 mg 02/15/25 06:00 02/15/25 09:38 Celecoxib 200 Mg Cap PO 02/15/25 23:59 200 mg PREOP SONIA Administration Gabapentin 300 mg 02/15/25 06:00 02/15/25 09:38 Gabapentin 300 Mg Cap PO 02/15/25 23:59 300 mg PREOP SONIA Administration Heparin Sodium (Porcine) 5,000 units 02/15/25 15:15 02/15/25 16:07 Heparin 5,000 Units/Ml Vial SC 5,000 units Q12H SONIA Administration Ringer's Solution 1,000 mls @ 80 mls/hr 02/15/25 06:00 02/15/25 15:38 IV 02/15/25 23:59 80 mls/hr INFUSION SONIA Infusion Cefazolin Sodium/Dextrose 2 gm in 50 mls @ 100 mls/hr 02/15/25 06:00 02/15/25 10:53 Ancef Duplex IVPB 02/15/25 23:59 Infused PREOP SONIA Infusion Acetaminophen 1,000 mg in 100 mls @ 400 mls/hr 02/15/25 15:15 02/15/25 16:11 Ofirmev IVPB 400 mls/hr Q8H SONIA Administration IV IV Catheter Type [Left Wrist] Peripheral IV IV Catheter Gauge [Left Wrist] 20 Diet Orders Category Date Time Status Post Op Diet [DIET] Nutrition 02/15/25 Dinner Active Diagnostics 02/15/25 Range/Units 09:34 ABO/Rh O Positive Antibody Screen NEGATIVE [id number] Documentation Fingerstick Glucose Start: 02/15/25 09:12 Freq: Status: Complete Protocol: Activity Type Activity Date Activity User E-sign Co-sign Detail Recorded Client Recorded Date Recorded By Document 02/15/25 15:07 BKG DAEMON(3) [id number] 02/15/25 15:08 BKG DAEMON(4) Intake and Output - 24 Hour Total 02/11/25 13:44 thru 02/15/25 16:39 Intake Total 500.000 Output Total 210 Balance 290.000 Weight 98 kg Intake: IV 500.000 Output: Urine 110 Estimated Blood Loss 100 Other: Urine Color Light Dana Urine Appearance Clear Comment campbell in place and patent Emesis Description None Urinary Catheter Urinary Catheter Date of 02/15/25 Insertion [Urethral (Campbell)] Time of insertion [Urethral ( 10:53 Campbell)] Falls Risk Assessment History of Falls No History 02/15/25 16:03 Contributing Factors Confusion,Impairments, 02/15/25 16:03 Incontinence Ambulatory Aids Independent 02/15/25 16:03 Tubes/Lines W/no contributing factors 02/15/25 16:03 Gait Evaluation No gait disturbance 02/15/25 16:03 Cognition No cognitive impairment 02/15/25 16:03 Fall Total Score 19 02/15/25 16:03 Level of Risk Standard/Low Risk 02/15/25 16:03 Problems (Last Reviewed 02/15/25 @ 09:28 by Annalee Lamas RN) Colostomy in place (Chronic) v v v v v v v v v Sending and/or Receiving Nurses: Please use comment section below to note any information pertinent to the patient hand-off not included above. Information / Comments: Report received from:Annalee Lamas RN All questions answered
[2025-02-15] MEDS: Insulin Aspart 300 UNITS/3 ML PEN SC (17:07)
[2025-02-16] VITALS (20 sets, daily range): BP systolic 98–152; BP diastolic 52–121; PULSE 59–71; RESP 13–24; TEMP 36.5–37; O2SAT 90–97
[2025-02-16] MEDS: Heparin 5,000 UNITS/ML VIAL 5000 UNITS SC ×2 (03:28→14:29)
[2025-02-16 05:42] LABS: Abs Immature Grans 0.02 10^3/uL (0.0-0.06); HCT 39.7 % (40.0-50.0); HGB 13.1 g/dL (13.5-17.5); Immature Grans % 0.3 %; MCH 31.6 pg (27.0-33.0); MCHC 33.0 % (32.0-36.0); MCV 96 fL (80-95); MPV 10.6 fL (8.0-11.0); Platelet Count 188 10^3/uL (130-400); RBC 4.14 10^6/uL (4.36-5.78); RDW 14.1 % (11.8-14.1); RDW-SD 49.4 fL; WBC 7.03 10^3/uL (4.4-10.8)
[2025-02-16 06:22] LABS: Anion Gap 10.0 mmol/L (3-11); BUN 16 mg/dL (7-18); CO2 26.0 mmol/L (21.0-32.0); Calcium 9.6 mg/dL (8.5-10.1); Chloride 102 mmol/L (98-107); Estimated GFR 48.85 (mL/min/1.73m2); Glucose 200 mg/dL (74-106); Potassium 5.0 mmol/L (3.5-5.1); Sodium 138 mmol/L (136-145)
[2025-02-16] MEDS: Normal Saline Flush 10 ML SYR IVP ×4 (06:49→20:52)
[2025-02-16] MEDS: ACETAMINOPHEN 1,000 MG/100 ML BAG 400 MG IVPB (07:38)
[2025-02-16] MEDS: Omeprazole 20 MG CAPCR PO (07:39)
[2025-02-16] MEDS: Furosemide 20 MG TAB PO (07:42)
[2025-02-16] MEDS: Insulin Aspart 300 UNITS/3 ML PEN SC (07:52)
--- NOTE | 2025-02-16 08:37 | W.PM.PROGNOT ---
Date of Service Date of service: 02/16/25 Time of Service: 08:38 Assessment and Plan Assessment and plan (1) History of colostomy reversal: Assessment and plan: POD #1 s/p colostomy reversal with colorectal anastomosis. Will start soft diet today. He will continue with ambulation and activity OOB. His pain is well controlled at this time. Discussed taking it slow and not over doing it too quickly. P// Slowly advance diet and assess tolerance and await the return of bowel function. Subjective Subjective Interval history since last seen: Arrive with Mani sitting up in the chair. He reports feeling well. He states he woke up early this morning and has already walked in the hallway. He states his abdomen is sore with movement and to the touch but otherwise feels great. Denies any nausea or vomiting. Exam Const General: cooperative, healthy appearing and comfortable Orientation: alert and oriented x3 Resp Effort & Inspection: normal respiratory effort, no audible wheezes and no cough GI Inspection: normal to inspection Other: Abdomen soft, tender near the previous colostomy site. Some serosanginous drainage from this site. No erythema, swelling or induration around the sites. Objective Last Vital Signs Temp 37.0 C 02/16/25 07:10 Pulse 64 02/16/25 08:00 Resp 18 02/16/25 08:00 BP 139/63 02/16/25 08:00 Pulse Ox 96 02/16/25 07:10 Laboratory Results - last 24 hr 02/15/25 02/16/25 09:34 05:26 WBC 7.03 RBC 4.14 L Hgb 13.1 L Hct 39.7 L MCV 96 H MCH 31.6 MCHC 33.0 RDW 14.1 Plt Count 188 MPV 10.6 Immature Gran % 0.3 Neutrophils % 78.9 Lymphocytes % 5.4 Monocytes % 11.9 Eosinophils % 3.1 Basophils % 0.4 Nucleated RBC % 0.0 Absolute Neutrophils 5.54 Absolute Lymphocytes 0.38 L Absolute Monocytes 0.84 H Absolute Eosinophils 0.22 Absolute Basophils 0.03 Sodium 138 Potassium 5.0 Chloride 102 Carbon Dioxide 26.0 Anion Gap 10.0 BUN 16 Creatinine 1.5 H Est GFR (CKD-EPI 2020) 48.85 Glucose 200 H Calcium 9.6 ABO/Rh O Positive Antibody Screen NEGATIVE Time Spent with Patient Time Spent with Patient: <25 minutes Time was spent: preparing to see the patient(eg.review tests), obtaining and/or reviewing separately otained hiistory and counseling the patient
--- NOTE | 2025-02-16 08:47 | PDOC.CMIN ---
Date of service: 02/16/25 Time of Service: 16:19 Care Management Initial Assmt Initial Assessment Reason for Hospitalization: colostomy reversal Functional Status/Living Situation Patient Presentation: Mani was sitting up in a chair visiting with his Marine when CM met with him. He was very pleasant and engaged well with CM. Mani was admitted for surgery to have his ostomy reversed. He had the procedure yesterday and seems to be doing very well post-operatively. He has been able to tolerate a regular diet and has been OOB ambulating in the unit. He reported that he had 2 BMs and is passing gas. Mani shared that he believes he should be ready for discharge by Friday. Mani and Marine live in a single family home in [place] with their dog. They have 3 children who all live in [place]. They also have 9 grandchildren. Mani has retired from 3 different careers. 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 He is independent at baseline and does not receive any community services. Mani receives his health care through the [facility]. His PCP is in [place] but he also goes to [facility] for some services. Town of Residence: [place] Resides with: Spouse (Ella) Significant Other/Family: Out of area (3 children all live out of state) Employment Status: Retired Instrumental Activities of Daily Living (ADLs): Independent Medications Medication Management: No Issues/Barriers identified Physical Functioning/Mobility Assistive Device: none Advance Directives Advance Directives: Do you have an Advance Directive: N 02/11/25, 13:25 AD On File at [facility]: N 02/11/25, 13:25 Date Asked 02/12/25 02/12/25, 11:22 AD Date Reviewed COLST On File at [facility] COLST Date Scanned Code Status Resuscitation Status Full Code Portal Pt does not currently have a portal and education provided: Yes Insurance Coverage/Financial Issues Insurance: [facility] Care Team Visit Care Team Role Provider Type Andrea Kaiser MD Primary Care Provider [facility] STAFF PHYSICIAN Glenn Castillo MD Admit Provider [facility] STAFF PHYSICIAN Attending Provider Discharge Potential Discharge Needs: Surgical F/U Appt Anticipated Barriers to Discharge: None Identified Patient/Family Education Needs: Review discharge instructions, discuss Ask Me Three Transportation: Private vehicle Plan: Anticipate Mani will be discharged home with no new services when medically cleared. He will, follow up with his surgeon and plan of care and transport with family. CM will follow and continue to support discharge planning. Social Determinants of Health Screening Social Determinants of health last assessed in clinic: 02/17/25 Will the Patient Participate in the Screening?: Yes Do you worry about having a steady place to live?: yes What is your living situation today?: I have housing today, but am worried about losing it Problems where you live: no known problems In the past 12 months, have you had to go without electric, gas, oil or water in your home?: no 1. Within the past 12 months, we worried whether our food would run out before we got money to buy more.: Never true 2. Within the past 12 months, the food we bought just didn't last and we didn't have money to get more.: Never true Has lack of transportation kept you from medical appointments or from doing things needed for daily living?: no Has anyone in your life made you feel unsafe or unsupported?: no How hard is it for you to pay for the very basics like food, housing, medical care, and heating? Would you say it is:: Not hard at all Do you want help finding or keeping work or a job?: I do not need or want help If for any reason you need help with day-to-day activities such as bathing, preparing meals, shopping, managing finances, etc., do you get the help you need?: I don?t need any help How often do you feel lonely or isolated from those around you?: Never Do you speak a language other than [place] at home?: No Does the patient want assistance with any of the above?: No Health Related Social Needs Health related social needs: housing instability, housed, with risk of homelessness (Z59.811) Health related social needs details: none PFSH All Active Problems Abdominal wound dehiscence (Acute) Pacemaker (Acute) Colostomy in place (Chronic) Medical History DVT prophylaxis History of coronary artery disease Perforation of sigmoid colon due to diverticulitis Hypomagnesemia Hyperkalemia KEIKO (acute kidney injury) Restless leg syndrome GERD (gastroesophageal reflux disease) History of congestive heart failure Hypercholesteremia Tobacco abuse Diabetes Hypertension Kidney stone on left side Surgical History (Updated 02/16/25 @ 07:59 by Carmelina Reina) History of colostomy reversal (~01/2025) History of colonoscopy (~12/2024) S/P cardiac catheterization no stents S/P placement of cardiac pacemaker History of back surgery Social History Smoking/Tobacco Use Status: Current every day Tobacco Type: cigarettes Smoking risk assessment performed?: Yes Alcohol Intake: former Year quit: 2023 Drug use: Never Substance use type: does not use Housing: house Additional Social history: [employer]
[2025-02-16] MEDS: HYDROmorphone 2 MG/ML SYR 1 MG IVP ×2 (15:17→21:58)
--- NOTE | 2025-02-16 15:27 | CHAPLAIN ---
Mani was up in the chair, dressed in his own clothes, when I visited. He said he's doing well today. His was with him. I explained my role and offered support.
[2025-02-17] VITALS (25 sets, daily range): BP systolic 102–128; BP diastolic 65–83; PULSE 60–90; RESP 10–26; TEMP 36.4–36.7; O2SAT 94–97
[2025-02-17] MEDS: ACETAMINOPHEN 1,000 MG/100 ML BAG 400 MG IVPB ×3 (00:10→17:18)
[2025-02-17] MEDS: Heparin 5,000 UNITS/ML VIAL 5000 UNITS SC ×2 (05:53→17:36)
[2025-02-17] MEDS: HYDROmorphone 2 MG/ML SYR 1 MG IVP (06:12)
[2025-02-17] MEDS: Normal Saline Flush 10 ML SYR IVP ×3 (06:13→19:17)
[2025-02-17] MEDS: Omeprazole 20 MG CAPCR PO (07:35)
[2025-02-17] MEDS: amLODIPine 5 MG TAB PO (08:14)
[2025-02-17] MEDS: Furosemide 20 MG TAB PO (08:14)
--- NOTE | 2025-02-17 08:30 | PDOC.CMPRO ---
Date of service: 02/17/25 Time of Service: 08:30 Care Management Progress Note Progress Note Text Progress Note Text: Mani was sitting up in a chair visiting with his when CM met with him. He was smiling and appeared to be in good spirits. Mani shared that he is feeling good. His pain is well controlled on oral analgesics and he has been moving his bowels and tolerating his diet. Yesterday there was some discussion about possibly needing home health nursing services for dressing changes, however Mani informed CM that he did the dressing himself today and that home health will not be needed. If Mani continues to improve, he will likley be discharged home tomorrow. Discharge Potential Discharge Needs: Surgical F/U Appt Anticipated Barriers to Discharge: None Identified Patient/Family Education Needs: Review discharge instructions, discuss Ask Me Three Transportation: Private vehicle Plan: Mani will likely be discharged home with no new services. He will follow up with his surgeon and plan of care and transport with his . CM will follow and continue to support discharge planning. Social Determinants of Health Screening Social Determinants of health last assessed in clinic: 02/17/25 Will the Patient Participate in the Screening?: Yes Do you worry about having a steady place to live?: yes What is your living situation today?: I have housing today, but am worried about losing it Problems where you live: no known problems In the past 12 months, have you had to go without electric, gas, oil or water in your home?: no 1. Within the past 12 months, we worried whether our food would run out before we got money to buy more.: Never true 2. Within the past 12 months, the food we bought just didn't last and we didn't have money to get more.: Never true Has lack of transportation kept you from medical appointments or from doing things needed for daily living?: no Has anyone in your life made you feel unsafe or unsupported?: no How hard is it for you to pay for the very basics like food, housing, medical care, and heating? Would you say it is:: Not hard at all Do you want help finding or keeping work or a job?: I do not need or want help If for any reason you need help with day-to-day activities such as bathing, preparing meals, shopping, managing finances, etc., do you get the help you need?: I don?t need any help How often do you feel lonely or isolated from those around you?: Never Do you speak a language other than [place] at home?: No Does the patient want assistance with any of the above?: No Health Related Social Needs Health related social needs: housing instability, housed, with risk of homelessness (Z59.811) Health related social needs details: none
--- NOTE | 2025-02-17 08:55 | W.PM.PROGNOT ---
Date of Service Date of service: 02/17/25 Time of Service: 08:55 Assessment and Plan Assessment and plan (1) History of colostomy reversal: Assessment and plan: POD #2 s/p colostomy reversal with colorectal anastomosis. Tolerating regular diet Passing flatus and has had several BMs He will continue with ambulation and activity OOB. His pain is a higher today, will transition to PO meds with anticipation of d/c Discussed taking it slow and not over doing it too quickly. He will need dressing supplies for the open wound which was previously his colostomy site. He states he will get these through the [place]. He was provided with a written list of supplies he will need. He will call his contact for this today. Discussed with nsg he will require wound care dressing education to ensure his independence and comfort with performing these dressing changes at home. Subjective Subjective Interval history since last seen: Patient reports he is feeling fairly well. With more discomfort today, with 7/10PL. He is tolerating a regular diet and had several BMs last night and early this morning. Exam Const General: cooperative, healthy appearing and comfortable Orientation: alert and oriented x3 Resp Effort & Inspection: normal respiratory effort, no audible wheezes and no cough GI Inspection: normal to inspection Other: Abdomen soft, tender near the previous colostomy site. Some serosanginous drainage from this site. No erythema, swelling or induration around the sites. Objective Last Vital Signs Temp 36.4 C L 02/17/25 06:04 Pulse 69 02/17/25 06:05 Resp 15 02/17/25 08:00 BP 102/83 02/17/25 06:04 Pulse Ox 96 02/17/25 06:05 Time Spent with Patient Time Spent with Patient: <25 minutes Time was spent: preparing to see the patient(eg.review tests), obtaining and/or reviewing separately otained hiistory and indepentently interpreting results
[2025-02-17] MEDS: traMADol 50 MG TAB PO ×3 (09:59→21:24)
--- NOTE | 2025-02-17 10:48 | PHA.REVIEW2 ---
Pharmacy Admission Review Admission Clinical Review Admission Pharmacy Review: lidocaine Allergy (Severe, Verified 02/15/25 09:15) Other (See Comment) latex Allergy (Mild, Verified 02/15/25 09:15) Skin Rash Resuscitation Status Full Code Height 6 ft Weight 96.1 kg Comments Comments/Follow Ups: POD #2 s/p colostomy reversal with colorectal anastomosis Pharmacy Admission Review Renal Dosing Renal Dosing: BUN 16 mg/dL (7-18) 02/16/25 05:26 Creatinine 1.5 mg/dL (0.70-1.30) H 02/16/25 05:26 Medications needing adjustments: Reviewed (CrCl 52.7 mL/min) List of meds needing interventions: Current medications are okay Anticoagulation Anticoagulation: Hgb 13.1 g/dL (13.5-17.5) L 02/16/25 05:26 Hct 39.7 % (40.0-50.0) L 02/16/25 05:26 Plt Count 188 10^3/uL (130-400) 02/16/25 05:26 Creatinine 1.5 mg/dL (0.70-1.30) H 02/16/25 05:26 DVT Prophylaxis: Reviewed Medications: Heparin (q12h) Opiate Usage Evaluate Pain Scale/Pains Meds: Reviewed (hydromorphone 1mg IVP q6h PRN - 3mg/24hrs + tramadol 50mg q4h PRN - 1 dose given) Scheduled Bowel Reg ordered if on Opiates?: No Relevant Labs Relevant Labs: Sodium 138 mmol/L (136-145) 02/16/25 05:26 Potassium 5.0 mmol/L (3.5-5.1) 02/16/25 05:26 Chloride 102 mmol/L (98-107) 02/16/25 05:26 Electrolytes, C-Reactive P, ESR: Reviewed (No new labs for today) DM Control DM Control: Glucose 200 mg/dL (74-106) H 02/16/25 05:26 Finger Stick Blood Glucose 133 0738 Finger Stick Blood Glucose 133 0738 DM Control: Reviewed Insulin Dosing, Diabetic Medication: Has order for SS insulin Cardiac Review BP, HR, EF%: Reviewed (BP and HR WNL) List meds needing interventions: Has orders for furosemide 20mg daily and amlodipine 5mg daily QTc Review QTc: Reviewed (485 from 08/27/24 - most recent EKG on file) IV to PO Switch IV Medications: Reviewed (acetaminophen and hydromorphone) Home Meds Home Med List reviewed: Reviewed Relevent Home Meds Not ordered & why?: aspirin, vitamin B12, ferrous gluconate, metformin (has SS insulin), naproxen, nicotine gum (PRN), ondansetron (PRN), ropinirole, rosuvastatin, sildenafil (PRN) Will reach out to provider regarding missing home meds if patient is not discharged today Current Meds Current Medication Order Review: Reviewed Comments Comments/Follow Ups: POD #2 s/p colostomy reversal with colorectal anastomosis
--- NOTE | 2025-02-17 15:53 | W.PM.PROGNOT ---
Date of Service Date of service: 02/17/25 Time of Service: 15:53 Assessment and Plan Assessment and plan (1) History of colostomy reversal: Assessment and plan: Mani is doing great after his laparoscopic colostomy reversal. We have transitioned him over from parenteral to oral analgesia today, we can see how he tolerates that over the next 24 hours or so. Assuming his pain remains controlled, he is able to get up and ambulate and feels well, and I would anticipate discharge home tomorrow. Subjective Subjective Interval history since last seen: Mani looks great. He is sitting up in the chair, has been tolerating a diet. He had several looser bowel movements through the course of this morning. Pain is well-controlled, and he denies any nausea or vomiting. Exam GI Other: His abdomen is soft, and not distended. Bandages are all clean and dry. He is a little bit tender. Objective Last Vital Signs Temp 97.5 F L 02/17/25 06:04 Pulse 61 02/17/25 09:24 Resp 25 H 02/17/25 12:00 BP 128/72 02/17/25 09:24 Pulse Ox 96 02/17/25 06:05 Time Spent with Patient Time Spent with Patient: 25-34 minutes Time was spent: preparing to see the patient(eg.review tests), referring, communicating with other health respiratory care practitioner, indepentently interpreting results and counseling the patient
[2025-02-17] MEDS: Insulin Aspart 300 UNITS/3 ML PEN SC (17:57)
[2025-02-18] VITALS (9 sets, daily range): BP systolic 117–132; BP diastolic 69–74; PULSE 59–68; RESP 12–17; TEMP 36.5; O2SAT 97
[2025-02-18] MEDS: ACETAMINOPHEN 1,000 MG/100 ML BAG 400 MG IVPB (00:49)
[2025-02-18] MEDS: Heparin 5,000 UNITS/ML VIAL 5000 UNITS SC (06:23)
[2025-02-18] MEDS: Omeprazole 20 MG CAPCR PO (06:37)
--- NOTE | 2025-02-18 07:22 | DSE_ITS ---
Date of service: 02/18/25 Time of Service: 07: DS: Diagnosis Discharge Diagnosis (1) History of colostomy reversal: Asessment and Plan: Discharge home with outpatient follow-up Discharge Plan Disposition Patient Disposition: Home Condition: Good Discharge Details Reason For Visit: Colostomy Reversal Admit Date/Time: 02/15/25 08:51 Admit Provider: Glenn Castillo Attending Provider: Glenn Castillo Primary Care Provider: Andrea Kaiser Hospital Course Hospital Course: Mani is a 74-year-old male with colostomy for a Saldana's procedure in the setting of perforated diverticulitis. Came to the operating room for reversal of his colostomy to restore GI continuity. He underwent laparoscopic [place] rectal anastomosis. This operation was uneventful, and his recovery was as expected in the hospital. Diet was advanced, he was up and ambulating. His pain was controlled, and he was able to maintain hydration and enteral nutrition. He was discharged home with outpatient follow-up. Home Meds and New Rx's Prescriptions: New tramadol 50 mg tablet 50 mg PO Q8H PRNQty: 12 0RF Rx Instructions: Take 1 tablet by mouth up to every 8 hours if needed for severe pain Continued amlodipine 5 mg tablet 5 mg PO DAILY ropinirole 2 mg tablet 2 mg PO DAILY omeprazole 20 mg capsule,delayed release(DR/EC) 20 mg PO DAILY rosuvastatin 40 mg tablet 40 mg PO DAILY ondansetron 8 mg tablet,disintegrating 8 mg PO .COMPLEX Qty: 3 0RF Rx Instructions: 8 mg orally Per Bowel Surgery Instructions; instructions provided by ordering providers office furosemide 20 mg tablet 20 mg PO DAILY cyanocobalamin (vitamin B-12) [Vitamin B-12] 250 mcg tablet 250 mcg PO DAILY ferrous gluconate 324 mg (38 mg iron) tablet 324 mg PO DAILY Patient Comments: M-W-F metformin 500 mg tablet extended release 24 hr 500 mg PO BID naproxen [EC-Naprosyn] 375 mg tablet,delayed release (DR/EC) 375 mg PO BID PRN nicotine (polacrilex) 2 mg gum 2 mg PO Q2H PRN sildenafil 50 mg tablet 50 mg PO ONCE PRN Rx Instructions: administer 30 minutes to 4 hours before activity aspirin [Aspir-Low] 81 mg Tablet,Delayed Release (Dr/Ec) 81 mg PO DAILY Discontinued bisacodyl [Dulcolax (bisacodyl)] 5 mg tablet,delayed release (DR/EC) 5 mg PO ONCE Qty: 8 0RF Rx Instructions: Take per colonoscopy instructions provided by ordering providers office metronidazole 500 mg tablet 500 mg PO .COMPLEX Qty: 8 0RF Rx Instructions: 500 mg orally Per Bowel Surgery Instructions; instructions provided by ordering providers office polyethylene glycol 3350 17 gram/dose powder 17 g PO ONCE Qty: 238 0RF Rx Instructions: Take per colonoscopy instructions provided by ordering providers office neomycin 500 mg tablet 500 mg PO .COMPLEX Qty: 8 0RF Rx Instructions: 500 mg orally per bowel surgery instructions; instructions provided by ordering providers office Discharge Instructions Additional Instructions: Mani, I am so glad that you got this next phase of your recovery behind you. Hopefully your transition home will be smooth and uneventful. As we discussed before your discharge, beginning as soon as this evening, or at least tomorrow, you should start washing the incisions with warm soapy water. Remove all of the bandages, any type of gauze or packing, and get into the shower. Rinse everything clean with warm soapy water. Rinse the soap suds off all of the incision and wound sites. When you get out of the shower, apply a thin layer of that medical honey to the old colostomy site wound, as well as the healing wound in the middle. Use a large Band-Aid over top to protect the wounds in your clothing. If there is a little bit of bleeding, you can use a gauze pad to absorb any of that. But as soon as this starts drying up, you do not need any specific gauze or packing. As we discussed, you should be up and moving around a little bit more and more each day. Light basic exercise is excellent, and will help speed along the recovery. Be careful with lifting, or vigorous twisting around your abdomen. You should feel free to eat and drink what ever it is that you desire. It is possible that some types of food will cause a little bit of diarrhea or loose stools. If that is the case, avoid those things, and you can always rely on things like bananas, rice, applesauce and toast to help deal with diarrhea if it becomes problematic. Certainly if it is really bothersome, let me know, we can use medications to help control it as well. If you need anything at all, or have any questions or just need to talk, please feel free to call me at [phone]. Stand Alone Forms: Anesthesia Discharge Inst., Zora.Nerve Block Instructions, Annie Sharma ([facility]) Referrals: Glenn Castillo MD [ [facility] STAFF PHYSICIAN, Surgery] - 03/10/25 2:45 pm Activity:: No heavy lifting Equipment/Supplies:: Medihoney from the bedsid Diet:: As Tolerated DS: Summary Time Spent with Patient providing and/or coordinating discharge services: Less than 30 minutes Status at Discharge Functional status at discharge: independent ambulation Overall status at discharge: patient is progressing back to baseline Mental Status: mental status grossly normal Speech and Movement: speech and movement normal Mood: congruent mood Affect: normal affect Quality:SDOH Health Related Social Needs: Health related social needs risk of homeless Health related social needs details none Health related social needs details: none Exam GI Other: Abdomen soft, nondistended, and nontender. Wounds are clean, no signs of infection. Psych Mental Status: mental status grossly normal Speech and Movement: speech and movement normal Mood: congruent mood Affect: normal affect DS: Data Vitals/I&O Vitals and I&O: Vital Signs Temperature 97.7 F 02/18/25 06:44 Temperature Source Temporal Artery Scan 02/17/25 17:25 Pulse 66 02/18/25 06:44 Pulse Rhythm Regular 02/15/25 09:20 Pulse 68 02/18/25 06:44 Respiratory Rate 14 02/18/25 06:44 Respiratory Effort Normal 02/15/25 16:03 Respiratory Depth Normal 02/15/25 16:03 Respiratory Pattern Normal 02/15/25 16:03 Blood Pressure 132/74 02/18/25 06:44 Blood Pressure Mean 92 02/18/25 06:44 Blood Pressure Position Supine 02/15/25 16:03 Pulse Oximetry 97 02/18/25 06:44 Respiratory End-tidal CO2 15 02/15/25 15:36 Oxygen Delivery Method Room Air 02/17/25 17:25 Oxygen Flow Rate 0 02/17/25 17:25 Pain Level 6 02/17/25 21:24 Intake & Output 02/17/25 02/17/25 02/18/25 11:59 23:59 11:59 Intake Total 320 / 1520 1200 / 1520 410 / 410 Output Total 650 / 1050 400 / 1050 400 / 400 Balance -330 / 470 800 / 470 10 / 10 Weight 211 lb 13.828 oz Intake: IV 200 / 300 100 / 300 110 / 110 Oral 120 / 1220 1100 / 1220 300 / 300 Output: Urine 650 / 1050 400 / 1050 400 / 400 Other: Urine Color Yellow Yellow Light Dana Urine Appearance Clear Clear Clear Urine Odor None Normal Comment urine mixed with stool. urine estimate to be about 300mL Stool Size Small Stool Characteristics Soft Formed Brown PFSH All Active Problems Pacemaker (Acute) Medical History Colostomy in place Abdominal wound dehiscence DVT prophylaxis History of coronary artery disease Perforation of sigmoid colon due to diverticulitis Hypomagnesemia Hyperkalemia KEIKO (acute kidney injury) Restless leg syndrome GERD (gastroesophageal reflux disease) History of congestive heart failure Hypercholesteremia Tobacco abuse Diabetes Hypertension Kidney stone on left side Surgical History History of colostomy reversal (~01/2025) History of colonoscopy (~12/2024) S/P cardiac catheterization no stents S/P placement of cardiac pacemaker History of back surgery Social History Smoking/Tobacco Use Status: Current every day Tobacco Type: cigarettes Smoking risk assessment performed?: Yes Alcohol Intake: former Year quit: 2023 Drug use: Never Substance use type: does not use Housing: house Additional Social history: [facility] Time Spent with Patient Time Spent with Patient: <45 minutes Time was spent: preparing to see the patient(eg.review tests), indepentently interpreting results, counseling the patient and care coordination
[2025-02-18] MEDS: traMADol 50 MG TAB PO (08:06)
[2025-02-18] MEDS: Furosemide 20 MG TAB PO (08:07)
[2025-02-18] MEDS: Normal Saline Flush 10 ML SYR IVP (08:07)
[2025-02-18] MEDS: amLODIPine 5 MG TAB PO (08:07)
--- NOTE | 2025-02-18 08:53 | PDOC.CMDIS ---
Date of service: 02/18/25 Time of Service: 08:53 LACE Index Scoring Tool Questions: Length of Stay (in days): 3 Was the patient admitted via the E.D.?: No Comorbidities: Diabetes w/o Complication and Congestive Heart Failure E.D. Visits: 1 Answers: Total Score: 7 Risk of Readmission: Low Risk Care Management Discharge Plan Reason for Hospitalization: colostomy reversal Discharge Plan: Mani will be discharged home with no new services. He will follow up with his surgeon and plan of care and transport with his . Patient/Family Education Needs: Review of discharge instructions, limitations, follow up plan and discuss Ask Me Three SDOH Health Related Social Needs: Health related social needs risk of homeless Health related social needs details none Health related social needs details: none
--- NOTE | 2025-02-18 09:12 | W.PM.PROGNOT ---
Date of Service Date of service: 02/18/25 Time of Service: 08:00 Assessment and Plan Assessment and plan (1) History of colostomy reversal: Assessment and plan: POD #3 s/p colostomy reversal Mani is doing phenomenal. He is having BMs, passing flatus, tolerating a regular diet and has been independent with his ADLs and ambulation. HIs pain has been well controlled and he has received education on how to perform wound care. Anticipate D/C home later today. Subjective Subjective Interval history since last seen: Mani is feeling great this morning and eager to be d/c home. Exam Const General: cooperative, healthy appearing and comfortable Orientation: alert and oriented x3 Resp Effort & Inspection: normal respiratory effort, no audible wheezes and no cough GI Inspection: normal to inspection Other: Abdomen soft, tender near the previous colostomy site. Some serosanginous drainage from this site. No erythema, swelling or induration around the sites. Objective Last Vital Signs Temp 36.5 C 02/18/25 06:44 Pulse 66 02/18/25 06:44 Resp 14 02/18/25 06:44 BP 132/74 02/18/25 06:44 Pulse Ox 97 02/18/25 06:44 Time Spent with Patient Time Spent with Patient: <25 minutes Time was spent: preparing to see the patient(eg.review tests), obtaining and/or reviewing separately otained hiistory and indepentently interpreting results
== END 2025-02-18 11:06 | disposition home or self-care (01) | DRG 331 ==
LOC: PDS 08:53 → ICU 15:59
PROVIDERS: Admitting Provider Surgery; PCP Physician Assistant Medical; Responsible Provider Surgery; Visit Provider Surgery
PROC: 0DBE4ZZ Excision of Large Intestine, Percutaneous Endoscopic Approach (ICD-10-PCS; CPT 44227; principal; 2025-02-15 09:00)
DX: Z43.3 Encounter for attention to colostomy (principal); K43.2 Incisional hernia without obstruction or gangrene; I25.10 Atherosclerotic heart disease of native coronary artery without angina pectoris; G25.81 Restless legs syndrome; K21.9 Gastro-esophageal reflux disease without esophagitis; I50.9 Heart failure, unspecified; E78.00 Pure hypercholesterolemia, unspecified; F17.210 Nicotine dependence, cigarettes, uncomplicated; E11.9 Type 2 diabetes mellitus without complications; I11.0 Hypertensive heart disease with heart failure; N20.0 Calculus of kidney; Z90.49 Acquired absence of other specified parts of digestive tract; Z95.0 Presence of cardiac pacemaker
CPT/HCPCS: 44620; 36415; 80048; 86850; 86900; 86901; 85025; J0131; J0665; J0666; J0690; J1100; J1171; J1644; J1815; J2003; J2371; J2405; J2704; J3010; J3475